=== PATIENT | male | born 1965 | race Caucasian/White ===

== ENCOUNTER → 2018-10-07 12:30 | Outpatient (BNVA) | payer MEDICARE, MEDICAID, SELFPAY | PROVIDERS: PCP Family Medicine; Referring Provider Family Medicine; Visit Provider Psychiatry & Neurology Neurology | DX: E11.42 Type 2 diabetes mellitus with diabetic polyneuropathy (principal); G56.03 Carpal tunnel syndrome, bilateral upper limbs; G54.6 Phantom limb syndrome with pain; Z89.512 Acquired absence of left leg below knee | CPT/HCPCS: 95910; 99205; 99215 ==

== ENCOUNTER → 2018-12-22 10:11 | Outpatient (BNVA) | payer MEDICARE, MEDICAID, SELFPAY | PROVIDERS: PCP Family Medicine; Visit Provider Psychiatry & Neurology Neurology | DX: G54.6 Phantom limb syndrome with pain (principal); E08.42 Diabetes mellitus due to underlying condition with diabetic polyneuropathy; G56.03 Carpal tunnel syndrome, bilateral upper limbs | CPT/HCPCS: 99214 ==

== ENCOUNTER → 2019-03-16 08:43 | Outpatient (BNVA) | payer MEDICARE, MEDICAID, SELFPAY | PROVIDERS: PCP Family Medicine; Referring Provider Family Medicine; Visit Provider Psychiatry & Neurology Neurology | DX: E08.42 Diabetes mellitus due to underlying condition with diabetic polyneuropathy; G54.6 Phantom limb syndrome with pain; G56.03 Carpal tunnel syndrome, bilateral upper limbs | CPT/HCPCS: 99214 ==

== ENCOUNTER → 2019-04-27 10:11 | Outpatient (BNVA) | payer MEDICARE, MEDICAID, SELFPAY | PROVIDERS: PCP Family Medicine; Referring Provider Family Medicine; Visit Provider Student in an Organized Health Care Education/Training Program | DX: G56.03 Carpal tunnel syndrome, bilateral upper limbs (principal); M72.0 Palmar fascial fibromatosis [Dupuytren]; E11.42 Type 2 diabetes mellitus with diabetic polyneuropathy; Z79.4 Long term (current) use of insulin; Z89.512 Acquired absence of left leg below knee | CPT/HCPCS: 99204; 99215 ==

== ENCOUNTER → 2019-05-18 09:05 | Outpatient (BNVA) | payer MEDICARE, MEDICAID, SELFPAY | PROVIDERS: PCP Family Medicine; Referring Provider Family Medicine; Visit Provider Psychiatry & Neurology Neurology | DX: G54.6 Phantom limb syndrome with pain (principal); G56.03 Carpal tunnel syndrome, bilateral upper limbs; E08.42 Diabetes mellitus due to underlying condition with diabetic polyneuropathy; Z79.4 Long term (current) use of insulin | CPT/HCPCS: 99214 ==

== ENCOUNTER 2019-06-10 06:18 | Day surgery (SDC) | payer MEDICARE, MEDICAID, SELFPAY ==
--- NOTE | 2019-06-09 17:59 | W.PREOPHP ---
Date of service: 06/10/19 Assessment and Plan Assessment and plan (1) Right carpal tunnel syndrome: Status: Acute Assessment and plan: Plan: Educated patient on surgery covering surgical technique, recovery process, benefits and risks including but not limited to risk of infection, blood clot, damage to soft tissue/blood vessels/nerves in detail. After discussion patient gives verbal understanding of risks and elects to proceed with scheduling surgery. Patient had opportunity to have questions answered to their satisfaction. They will contact office if issues arise. Patient will continue to be scheduled for right ECTR with Dr. Castillo. History of Present Illness Narrative: Mr. Robles is a 53-year-old male with past medical history of type 2 diabetes who presents to hospital for scheduled right ECTR later today. Patient has previously been seen by neurology for bilateral hand numbness and tingling. As per neurology note by Dr. Paul on 03/16/2019 patient had bilateral hand numbness/tingling secondary to mild bilateral carpal tunnel +/- peripheral neuropathy. Patient tried to treat discomfort with gabapentin but did not experience symptomatic improvement. As per patient's record he did have some symptomatic improvement with nighttime bracing. Patient was then seen orthopedic clinic on 04/27/2019 at which time after discussion patient wished to have carpal tunnel release based on his significant symptoms. Pertinent Surgical Information Denies past medical history of: Hypertension, stroke, cardiac issues, angina, asthma, COPD, sleep apnea, renal issues, liver issues, hepatitis, hyperlipidemia, bleeding disorders, seizures, migraines, autoimmune disorders, thyroid issues Denies prior complications from surgery. Reports he had an issue with gas anesthesia when he was a child. No anesthesia issues after that time. Review of Systems Cardiovascular Cardiovascular: Denies chest pain and Denies dyspnea Respiratory Respiratory: Denies dyspnea [facility] Social History Smoking/Tobacco Use Status: Never Alcohol Intake: never Drug use: Occasionally Substance use type: former substance user Details: No marijuana use for a month Household members: children Number of Children: 4 current occupation: Disabled Current gender identity: male Do you feel safe at home: Yes Do you feel safe in your relationship?: Yes Additional Social history: 8 children total Meds Home Medications and Allergies Home Medications Medication Instructions Recorded Confirmed Type tadalafil [Cialis] 5 mg PO daily prn #10 tab 03/25/17 06/05/19 Rx pen needle, diabetic 32 gauge x #4 box 02/28/18 05/18/19 Rx 5/32 Prosthetic accessories #1 ea 08/29/18 05/18/19 Rx gabapentin 600 mg tablet 1,200 mg PO BID #360 tab MDD 2400 12/26/18 06/10/19 Rx mg insulin detemir U-100 100 unit/mL 115 unit SUB-Q BID #15 ml MDD 115 12/26/18 06/10/19 Rx (3 mL) subcutaneous pen units lisinopril 10 mg tablet 10 mg PO DAILY #90 tab-cap 12/26/18 06/10/19 Rx metformin 1,000 mg tablet 1,000 mg PO BID@0800,1700 #180 tab 12/26/18 06/10/19 Rx omeprazole 20 mg capsule,delayed 20 mg PO DAILY #90 tab-cap 12/26/18 06/10/19 Rx release trazodone 150 mg tablet 150 mg PO HS #90 tab 12/26/18 06/10/19 Rx insulin aspart U-100 100 unit/mL 1 unit SUB-Q AC #4 ml MDD 54 units 05/07/19 06/10/19 Rx (3 mL) subcutaneous pen acetaminophen 500 mg tablet 500 mg PO QID PRN 05/18/19 06/05/19 History nortriptyline 25 mg capsule 25 mg PO QHS #90 cap 05/18/19 06/10/19 Rx Allergies Allergy/AdvReac Type Severity Reaction Status Date / Time No Known Drug Allergies Allergy Verified 06/10/19 06:26 Exam Const General: cooperative and no acute distress Resp Effort & Inspection: normal respiratory effort and abnormal respiratory pattern Auscultation: clear to auscultation bilaterally, no rales, no rhonchi and no wheezes Cardio Heart Sounds: S1 normal, S2 normal and no murmurs Extrem Other: Right hand examination: Skin is intact without signs of erythema, lacerations or rash. Radial pulse is 2+ equal to contralateral side.
[2019-06-10 06:20] VITALS: BP 153/94; PULSE 66; RESP 18; TEMP 36.7; O2SAT 97
[2019-06-10] MEDS: Lactated Ringers 1,000 ML 80 ML IV (07:00)
--- NOTE | 2019-06-10 07:15 | PDOC.DSDIS_ITS ---
Discharge Plan Disposition Patient Disposition: HOME Condition: Good Discharge Details Reason For Visit: Right carpal tunnel syndrome Attending Provider: Stas Castillo Primary Care Provider: Zeeshan Singh Home Meds and New Rx's Prescriptions: New hydrocodone-acetaminophen 5-325 mg tablet 1 tab PO Q6H PRN (Reason: severe postopertive pain) Qty: 4 RF: 0 acetaminophen 500 mg tablet 500 mg PO Q6H PRN (Reason: pain) Qty: 60 RF: 2 ibuprofen 600 mg tablet 600 mg PO TID PRN (Reason: pain) Qty: 60 RF: 2 Continued (DME) Prosthetic accessories Qty: 1 RF: 0 (DME) pen needle, diabetic [BD Ultra-Fine Paige Pen Needle] 32 gauge x 5/32 needle 1 ea Miscellaneous 5X/DAY Qty: 4 RF: 3 nortriptyline 25 mg capsule 25 mg PO QHS Qty: 90 RF: 3 tadalafil [Cialis] 5 MG tablet 5 mg PO daily prn Qty: 10 RF: 0 gabapentin 600 mg tablet 1,200 mg PO BID MDD 2400 mg Qty: 360 RF: 3 Levemir FlexTouch U-100 Insuln 100 unit/mL (3 mL) insulin pen 115 unit Sub-Q BID MDD 115 units Qty: 15 RF: 6 lisinopril 10 mg tablet 10 mg PO DAILY Qty: 90 RF: 3 metformin [Glucophage] 1,000 mg tablet 1,000 mg PO BID@0800,1700 Qty: 180 RF: 3 omeprazole 20 mg capsule,delayed release(DR/EC) 20 mg PO DAILY Qty: 90 RF: 3 trazodone 150 mg tablet 150 mg PO HS Qty: 90 RF: 3 insulin aspart U-100 [Novolog Flexpen U-100 Insulin] 100 unit/mL (3 mL) insulin pen 1 unit Sub-Q AC MDD 54 units Qty: 4 RF: 2 Discontinued acetaminophen [Tylenol Extra Strength] 500 mg tablet 500 mg PO QID PRNRF: 0 Discharge Instructions Stand Alone Forms: Jonathan Thomas Tunnel Release Referrals: Stas Castillo MD [ [facility] STAFF PHYSICIAN] - Activity:: Elevate Remove Dressings/Wound Care:: 48 hours Shower/Bathe:: 48 hours Diet:: As Tolerated DS: Diagnosis Discharge Diagnosis (1) Right carpal tunnel syndrome: Status: Acute
[2019-06-10] MEDS: ceFAZolin 2 GM/50 ML BAG IVPB (07:26)
[2019-06-10] MEDS: Sodium Bicarbonate 50 MEQ/50 ML VIAL (07:30)
[2019-06-10 08:30] VITALS: BP 120/71; PULSE 72; RESP 18; TEMP 36.6; O2SAT 94
--- NOTE | 2019-06-10 19:39 | W.PM.OP ---
Date of service: 06/10/19 Time of Service: 08:01 Operative Note Operative Note DATE OF PROCEDURE: 06/10/19 PRE-OP DIAGNOSIS: Right Carpal Tunnel Syndrome POST-OP DIAGNOSIS: same PROCEDURE: Right Endoscopic Carpal Tunnel Release SURGEON: Stas Castillo ANESTHESIA: GETFracisco ESTIMATED BLOOD LOSS: 0 PATHOLOGY: none sent TOURNIQUET TIME: 4 COMPLICATIONS: None Patient was transported to: same day Patient's condition: stable Indications: I have seen Jimmie in clinic for symptoms of carpal tunnel syndrome. The numbness, tingling, and pain limited function. Clinical exam findings with nerve conduction tests confirmed the diagnosis of carpal tunnel syndrome. Nonoperative measures such as bracing, time, activity modifications had been tried but disability and pain persisted. I discussed carpal tunnel release with the patient. I reviewed the risks of the procedure to include, but not limited to, bleeding, infection, pain, stiffness, incomplete release, damage to nerves or vessels, persistent numbness, recurrence. Despite these risks, the patient elected to proceed. Findings: There was tightened carpal tunnel. This was dilated and released successfully with the endoscopic with increased space within the tunnel. The antebrachial fascia was released proximally freeing the median nerve at the wrist. Procedure Description: Jimmie was greeted in the preoperative holding area where the correct side was identified and marked. The consent was reviewed with the patient and signed. The history and physical was updated. All questions were answered. He was taken back to the operating room. The patient was placed into the supine position on the operating room table with the right arm on an arm board. A nonsterile tourniquet was placed high onto the arm. All bony prominences were well padded. Prophylactic antibiotics in the form of Cefazolin were administered. The right arm was then prepped with Chloraprep and draped in a standard fashion with stockinette and extremity drape. A timeout to confirm correct identity, side and site, procedure, allergies, anesthesia, and medical concerns was performed. The surgical site was marked in the volar wrist creases in line with the radial border of the fourth ray. This area was anesthetized with approximately 6cc of 1% Lidocaine. The limb was then exsanguinated with an Esmarch. The skin was incised with a 15 blade, approximately 1cm. The skin only was cut and the deeper tissue was dissected bluntly with a tenotomy scissor, avoiding passing nerve and venous structures. The fascia was penetrated and opened bluntly. A two-prong skin hook was placed under this proximal fascial edge. A series of hamate finders were used to identify and dilate the carpal tunnel. Synovial elevator was used to free synovial attachments to the underside of the transverse carpal ligament. My thumb was kept in the palm to deepa the distal extent of the carpal tunnel and correctly position the hand. The Microaire endoscope was inserted without difficulty and without resistance. Excellent visualization showed horizontally running fibers of the transverse carpal ligament (TCL). The distal extent of the TCL was visualized and the end of the scope palpated with the thumb. The blade was elevated and withdrawn from distal to proximal. The TCL was split into two flaps. The endoscope was reinserted to confirm complete release and any remnant ligament was incised. The scope was withdrawn and the proximal aspect of the carpal tunnel was grossly inspected and appeared release with the median nerve visible. The antebrachial fascia at the level of the wrist was then freed from the overlying skin and then the underlying median nerve with blunt dissection. This was transected longitudinally for about 3cm proximal to the wrist incision. The wound was then irrigated with easy flow of irrigant distally and proximally. The incision was closed with a single 4-0 Nylon suture. The wound was dressed with Xeroform, Gauze, Kerlix and Jasper. The tourniquet was deflated with the initial dressing and held with some pressure. Blood flow returned easily to all digits with capillary refill less than 2 seconds. The patient tolerated the procedure well and was returned to the Same Day Surgery area in a stable condition suffering no known complication.
== END 2019-06-10 09:00 | disposition home or self-care (01) ==
PROVIDERS: PCP Family Medicine; Visit Provider Student in an Organized Health Care Education/Training Program
PROC: 01N54ZZ Release Median Nerve, Percutaneous Endoscopic Approach (ICD-10-PCS; CPT 29848; principal; 2019-06-10 07:30)
DX: G56.01 Carpal tunnel syndrome, right upper limb (principal)
CPT/HCPCS: 29848; NC; J0690; J1885; L3650

== ENCOUNTER → 2019-06-19 09:05 | Outpatient (BNVA) | payer MEDICARE, MEDICAID, SELFPAY | PROVIDERS: PCP Family Medicine; Referring Provider Family Medicine; Visit Provider Student in an Organized Health Care Education/Training Program | DX: Z47.89 Encounter for other orthopedic aftercare (principal); G56.02 Carpal tunnel syndrome, left upper limb; G56.01 Carpal tunnel syndrome, right upper limb; M72.0 Palmar fascial fibromatosis [Dupuytren] ==

== ENCOUNTER 2019-06-23 06:13 | Day surgery (SDC) | payer MEDICARE, MEDICAID, SELFPAY ==
[2019-06-23 06:44] VITALS: BP 170/91; PULSE 75; RESP 18; TEMP 36.8; O2SAT 97
[2019-06-23] MEDS: Lactated Ringers 1,000 ML 80 ML IV (06:56)
--- NOTE | 2019-06-23 07:13 | W.PM.DSUDISC ---
Discharge Plan Disposition Patient Disposition: HOME Condition: Good Discharge Details Reason For Visit: Left Carpal Tunnel Syndrome and Left LF Dupuytren Attending Provider: Stas Castillo Primary Care Provider: Zeeshan Singh Home Meds and New Rx's Prescriptions: New hydrocodone-acetaminophen 5-325 mg tablet 1 tab PO Q6H PRN PRN (Reason: pain) Qty: 8 RF: 0 acetaminophen 500 mg tablet 500 mg PO Q6H PRN PRN (Reason: pain) Qty: 60 RF: 3 ibuprofen 600 mg tablet 600 mg PO TID PRNQty: 30 RF: 3 Continued (DME) Prosthetic accessories Qty: 1 RF: 0 (DME) pen needle, diabetic [BD Ultra-Fine Paige Pen Needle] 32 gauge x 5/32 needle 1 ea Miscellaneous 5X/DAY Qty: 4 RF: 3 nortriptyline 25 mg capsule 25 mg PO QHS Qty: 90 RF: 3 tadalafil [Cialis] 5 MG tablet 5 mg PO daily prn Qty: 10 RF: 0 gabapentin 600 mg tablet 1,200 mg PO BID MDD 2400 mg Qty: 360 RF: 3 Levemir FlexTouch U-100 Insuln 100 unit/mL (3 mL) insulin pen 115 unit Sub-Q BID MDD 115 units Qty: 15 RF: 6 lisinopril 10 mg tablet 10 mg PO DAILY Qty: 90 RF: 3 metformin [Glucophage] 1,000 mg tablet 1,000 mg PO BID@0800,1700 Qty: 180 RF: 3 omeprazole 20 mg capsule,delayed release(DR/EC) 20 mg PO DAILY Qty: 90 RF: 3 trazodone 150 mg tablet 150 mg PO HS Qty: 90 RF: 3 insulin aspart U-100 [Novolog Flexpen U-100 Insulin] 100 unit/mL (3 mL) insulin pen 1 unit Sub-Q AC MDD 54 units Qty: 4 RF: 2 Discharge Instructions Additional Instructions: Activity: You may use your fingers and wrist for light activity. You should limit any excessive motion or forceful gripping until the sutures have been removed. Dressings: You should keep the initial surgical dressing of finger and wrist in place for at least 3 days. You may remove your dressings and get the wound wet after 3 days. You should keep the dressings and the wound clean at all times. Keep the wound covered with light gauze or bandaid until the sutures are removed. Medications: - You should take Tylenol and Ibuprofen around the clock as prescribed or per configuration management architect's recommendations. - You have Hydrocodone prescribed for breakthrough pain control. Take only as needed and limit use as much as possible. This may cause constipation. Follow-up: 7-10 days for wound check and suture removal. Referrals: Stas Castillo MD [ [facility] STAFF PHYSICIAN] - Remove Dressings/Wound Care:: 72 hours Shower/Bathe:: 72 hours Diet:: As Tolerated Discharge Orders Discharge Orders: Discharge Order (Routine); Ordered 06/23/19 Ordered By: Stas Castillo DS: Diagnosis Discharge Diagnosis (1) Dupuytren's contracture of left hand: Status: Acute (2) Left carpal tunnel syndrome: Status: Acute
[2019-06-23] MEDS: ceFAZolin 2 GM/50 ML BAG IVPB (07:26)
[2019-06-23] MEDS: Sodium Bicarbonate 50 MEQ/50 ML VIAL (07:46)
[2019-06-23 08:44] VITALS: BP 154/82; PULSE 78; RESP 18; TEMP 36.4; O2SAT 96
--- NOTE | 2019-06-23 09:50 | ROE_ITS ---
Date of service: 06/23/19 Time of Service: 09:51 Operative Note Operative Note DATE OF PROCEDURE: 06/23/19 PRE-OP DIAGNOSIS: Left Carpal Tunnel Syndrome and Left Little Finger Dupuytren's Contracture POST-OP DIAGNOSIS: same PROCEDURE: Left Endoscopic Carpal Tunnel Release and Left Little Finger Partial Palmar Fasciectomy SURGEON: Stas Castillo ANESTHESIA: MAC ESTIMATED BLOOD LOSS: 0 PATHOLOGY: none sent TOURNIQUET TIME: 17 COMPLICATIONS: None Patient was transported to: same day Patient's condition: stable Indications: I have seen Jimmie in clinic for symptoms of carpal tunnel syndrome and left little finger Dupuytren's contracture. The numbness, tingling, and pain limited function. The little finger had a significant contracture of the PIP joint. Clinical exam findings with nerve conduction tests confirmed the diagnosis of carpal tunnel syndrome along with Dupuytren's. Nonoperative measures such as bracing, time, activity modifications had been tried but disability and pain persisted. I discussed carpal tunnel release coupled with partial palmar fasciectomy with the patient. I reviewed the risks of the procedure to include, but not limited to, bleeding, infection, pain, stiffness, incomplete release, damage to nerves or vessels, persistent numbness, recurrence. Despite these risks, the patient elected to proceed. Findings: There was tightened carpal tunnel. This was dilated and released successfully with the endoscopic with increased space within the tunnel. The a ntebrachial fascia was released proximally freeing the median nerve at the wrist. There is a very prominent abductor digit he minimi cord which was easily resected from the level of the PIP joint down to the level of the abductor digit minimi tendon sheath in the distal, ulnar palm. Procedure Description: Jimmie was greeted in the preoperative holding area where the correct side was identified and marked. The consent was reviewed with the patient and signed. The history and physical was updated. All questions were answered. He was taken back to the operating room. The patient was placed into the supine position on the operating room table with the left arm on an arm board. A nonsterile tourniquet was placed high onto the arm. All bony prominences were well padded. Prophylactic antibiotics in the form of cefazolin were administered. The left arm was then prepped with Chloraprep and draped in a standard fashion with stockinette and extremity drape. A timeout to confirm correct identity, side and site, procedure, allergies, anesthesia, and medical concerns was performed. The surgical site was marked in the volar wrist creases in line with the radial border of the fourth ray. This area was anesthetized with approximately 6cc of 1% Lidocaine with epinephrine. The proposed surgical site on the little finger was also injected with buffered 1% lidocaine with epinephrine. The limb was then exsanguinated with an Esmarch. The skin was incised with a 15 blade, approximately 1cm. The skin only was cut and the deeper tissue was dissected bluntly with a tenotomy scissor, avoiding passing nerve and venous structures. The fascia was penetrated and opened bluntly. A two-prong skin hook was placed under this proximal fascial edge. A series of hamate finders were used to identify and dilate the carpal tunnel. Synovial elevator was used to free synovial attachments to the underside of the transverse carpal ligament. My t humb was kept in the palm to deepa the distal extent of the carpal tunnel and correctly position the hand. The Microaire endoscope was inserted without difficulty and without resistance. Excellent visualization showed horizontally running fibers of the transverse carpal ligament (TCL). The distal extent of the TCL was visualized and the end of the scope palpated with the thumb. The blade was elevated and withdrawn from distal to proximal. The TCL was split into two flaps. The endoscope was reinserted to confirm complete release and any remnant ligament was incised. The scope was withdrawn and the proximal aspect of the carpal tunnel was grossly inspected and appeared release with the median nerve visible. The antebrachial fascia at the level of the wrist was then freed from the overlying skin and then the underlying median nerve with blunt dissection. This was transected longitudinally for about 3cm proximal to the wrist incision. The wound was then irrigated with easy flow of irrigant distally and proximally. The incision was closed with a single 4-0 Nylon suture. Attention was then turned to the left little finger. A Gene type incision was made over the ulnar aspect of the left little finger. This was taken down to the skin only. Blunt dissection was used to dissect down to the level of the cord. The cord is very superficial and is identifiable. There is no crossing neurovascular structures. The cord was dissected distally. Sharp dissection was used to remove any attachments of the cord to surrounding structures. It was followed although to the level the PIP joint. It was then transected at level the PIP joint and then elevated out of the wound and followed proximally to its base coming off of the abductor digiti minimi tendon over the ulnar aspect of the palm. Any adhesions to this cord were resected. The cord was then transected and removed from the finger. The finger now had full range of motion to the PIP joint. I was able to obtain 5 degrees of hyperextension of the PIP joint and 20 degrees of extension at the MCP joint. The skin was then closed with a 4-0 nylon. The wounds were dressed with Xeroform, Gauze, Kerlix and Jasper. The tourniquet was deflated with the initial dressing and held with some pressure. Blood flow returned easily to all digits with capillary refill less than 2 seconds. The patient tolerated the procedure well and was returned to the Same Day Surgery area in a stable condition suffering no known complication.
== END 2019-06-23 09:25 | disposition home or self-care (01) ==
PROVIDERS: PCP Family Medicine; Visit Provider Student in an Organized Health Care Education/Training Program
PROC: 01N54ZZ Release Median Nerve, Percutaneous Endoscopic Approach (ICD-10-PCS; CPT 29848; principal; 2019-06-23 07:30)
PROC: (CPT 26045; 2019-06-23 07:30)
DX: M72.0 Palmar fascial fibromatosis [Dupuytren] (principal); G56.02 Carpal tunnel syndrome, left upper limb
CPT/HCPCS: 26123; 29848; J0690; J2001; J2250; J2405; L3650; L3908

== ENCOUNTER → 2019-07-02 08:51 | Outpatient (BNVA) | payer MEDICARE, MEDICAID, SELFPAY | PROVIDERS: PCP Family Medicine; Referring Provider Family Medicine; Visit Provider Student in an Organized Health Care Education/Training Program | DX: Z47.89 Encounter for other orthopedic aftercare (principal); G56.02 Carpal tunnel syndrome, left upper limb; M72.0 Palmar fascial fibromatosis [Dupuytren]; E11.42 Type 2 diabetes mellitus with diabetic polyneuropathy; Z79.4 Long term (current) use of insulin ==

== ENCOUNTER → 2019-07-13 09:39 | Outpatient (BNVA) | payer MEDICARE, MEDICAID, SELFPAY | PROVIDERS: PCP Family Medicine; Referring Provider Family Medicine; Visit Provider Psychiatry & Neurology Neurology | DX: G54.6 Phantom limb syndrome with pain; E08.42 Diabetes mellitus due to underlying condition with diabetic polyneuropathy; G56.03 Carpal tunnel syndrome, bilateral upper limbs | CPT/HCPCS: 99214 ==

== ENCOUNTER 2019-07-29 16:14 | Outpatient (CLI) | payer MEDICARE, MEDICAID, SELFPAY ==
[2019-07-29 18:51] LABS: Calculated LDL 91 mg/dL (<100); Cholesterol 187 mg/dL (<200); HDL Cholesterol 30 mg/dL (40-60); TSH (W/Ref FT4) 1.09 uIU/mL (0.36-3.74); Triglyceride 330 mg/dL (<150)
[2019-07-29 19:05] LABS: Anion Gap 13.6 mmol/L (3-11); BUN 19 mg/dL (7-18); CO2 21.4 mmol/L (21.0-32.0); CREATININE 1.15 mg/dL (0.70-1.30); Calcium 9.2 mg/dL (8.5-10.1); Chloride 101 mmol/L (98-107); Glucose 99 mg/dL (74-106); Potassium 4.6 mmol/L (3.5-5.1); Sodium 136 mmol/L (136-145); Vitamin B12 332 pg/mL (193-986)
[2019-07-31 13:09] LABS: Albumin 55.4 % (55.8-66.1); Total Protein 7.9 g/dL (6.3-8.2)
== END 2019-07-29 16:34 ==
PROVIDERS: Psychiatry & Neurology Neurology; PCP Family Medicine; Visit Provider Family Medicine
DX: G62.89 Other specified polyneuropathies (principal); E08.42 Diabetes mellitus due to underlying condition with diabetic polyneuropathy; E78.5 Hyperlipidemia, unspecified
CPT/HCPCS: 36415; 80048; 80061; 82607; 84165; 84443

== ENCOUNTER → 2019-09-14 07:50 | Outpatient (BNVA) | payer MEDICARE, MEDICAID, SELFPAY | PROVIDERS: PCP Family Medicine; Referring Provider Family Medicine; Visit Provider Psychiatry & Neurology Neurology | DX: G54.6 Phantom limb syndrome with pain (principal); E08.42 Diabetes mellitus due to underlying condition with diabetic polyneuropathy; G56.01 Carpal tunnel syndrome, right upper limb; G56.02 Carpal tunnel syndrome, left upper limb | CPT/HCPCS: 99213; 99441 ==

== ENCOUNTER → 2019-11-16 09:47 | Outpatient (BNVA) | payer MEDICARE, MEDICAID, SELFPAY | PROVIDERS: PCP Family Medicine; Referring Provider Family Medicine; Visit Provider Psychiatry & Neurology Neurology | DX: G54.6 Phantom limb syndrome with pain (principal); E08.42 Diabetes mellitus due to underlying condition with diabetic polyneuropathy; G56.01 Carpal tunnel syndrome, right upper limb; G56.02 Carpal tunnel syndrome, left upper limb; Z79.4 Long term (current) use of insulin | CPT/HCPCS: 99213 ==

== ENCOUNTER → 2020-02-04 09:43 | Outpatient (BNVA) | payer MEDICARE, MEDICAID, SELFPAY | PROVIDERS: PCP Family Medicine; Referring Provider Family Medicine; Visit Provider Physical Therapy Assistant | DX: Z12.11 Encounter for screening for malignant neoplasm of colon (principal); I10 Essential (primary) hypertension; E11.9 Type 2 diabetes mellitus without complications; Z79.4 Long term (current) use of insulin ==

== ENCOUNTER 2020-02-15 00:37 | Outpatient (CLI) | payer MEDICARE, MEDICAID, SELFPAY ==
--- NOTE | 2020-02-15 14:18 | ST.MBS ---
Modified Barium Swallow Date of service: 02/15/20 Study Findings: HPI: PMHx: S: O: Videofluoroscopic Swallow Study (VFSS) was conducted in the lateral and [id number] projections by Speech-Language Pathologist, in collaboration with Radiologist, to evaluate oropharyngeal swallow function. Anatomic view under fluoroscopy: PO barium contrast trials: Varibar thin liquid, Varibar nectar (mildly-thick) liquid, Varibar thin honey (moderately-thick) liquid, Varibar pudding, & solid coated in Varibar pudding. Oral phase findings: Lip closure: Tongue control: Bolus preparation: Oral residue: Pharyngeal phase findings: Initiation of swallow: Velar elevation: Laryngeal elevation: Anterior hyoid excursion: Epiglottic movement: Laryngeal vestibule closure: Pharyngeal stripping wave: Pharyngeal contraction: PES opening: BOT retraction: Pharyngeal residue: Esophageal findings: NOTE: This study was performed for interpretation only of the oropharyngeal and pharyngoesophageal domains of swallowing. It is not intended to diagnose any other radiologic abnormalities or substitute for a formal esophagram study. Esophageal clearance: 8-point Penetration-Aspiration Scale (PAS): Thin liquid: Mildly-thick liquid: Moderately-thick liquid: Pudding: Solid: Compensatory Swallow Strategies: Dysphagia Outcome and Severity Scale (TRENT): A: P: Diet recommendation: Risk management: Specialist referrals: Ancillary tests: Therapy: Goal: Follow-up exam: Loni Valdivia MA [facility] [phone]
== END 2020-02-15 00:57 ==
PROVIDERS: PCP Family Medicine; Visit Provider Family Medicine
DX: R69 Illness, unspecified (principal)

== ENCOUNTER 2020-02-25 15:37 | Outpatient (CLI) | payer MEDICARE, MEDICAID, SELFPAY | END 2020-02-25 15:57 | PROVIDERS: PCP Family Medicine; Visit Provider Surgery | DX: E11.42 Type 2 diabetes mellitus with diabetic polyneuropathy (principal); G54.6 Phantom limb syndrome with pain; Z79.4 Long term (current) use of insulin | CPT/HCPCS: 99213 ==

== ENCOUNTER 2020-03-16 11:20 | Emergency (ER) | payer MEDICARE, MEDICAID, SELFPAY ==
[2020-03-16] VITALS (37 sets, daily range): BP systolic 121–166; BP diastolic 82–104; PULSE 0–117; RESP 10–28; TEMP 37; O2SAT 92–98
--- NOTE | 2020-03-16 11:15 | RT.EKG_ITS ---
APPROVED REPORT Exam: Resting ECG Patient Location: E HR:109 bpm ECG Measurements Heart Rate 109 AXIS CA [id number] P [id number] QRSd 94 QRS -61 QT 363 T 111 QTc 490 Conclusion Probable.wandering baseline. repeat requested
--- NOTE | 2020-03-16 11:45 | DI.RAD_ITS ---
EXAM: XR PORTABLE CHEST AP CLINICAL HISTORY: Cough, L Pain TECHNIQUE: 2D digital imaging was performed. COMPARISON: No exams were available for comparison FINDINGS: MEDIASTINUM: Normal. HEART: Normal. PULMONARY VASCULATURE: Normal. LUNGS: Clear. PLEURAL SPACE: No pleural effusion or pneumothorax. BONE:Within normal limits for the patient's age. OTHER FINDINGS:Normal. IMPRESSION: No acute pulmonary findings. DATA REPOSITORY: RADIATION DOSE DELIVERED:
--- NOTE | 2020-03-16 11:45 | RT.EKG_ITS ---
APPROVED REPORT Exam: Resting ECG Patient Location: E HR:100 bpm ECG Measurements Heart Rate 100 AXIS MI 156 P 78 QRSd 98 QRS -47 QT 346 T 82 QTc 447 Conclusion Sinus tachycardia. Rate 100 LAD, consider left anterior fascicular block
[2020-03-16] MEDS: LORazepam 2 MG/ML VIAL 0.5 MG IVP (12:20)
--- NOTE | 2020-03-16 12:31 | W.ED.GENAD ---
Discharge Plan Disposition Patient Disposition: HOME Condition: Improving Discharge Details Clinical Impression: Dehydration Primary Care Provider: Zeeshan Singh ED Provider: Shane Robledo Home Meds and New Rx's Prescriptions: Continued (DME) Prosthetic accessories Qty: 1 RF: 0 gabapentin 600 mg tablet See Rx Instructions PO DIRECTED MDD 3000 mg Qty: 450 RF: 3 nortriptyline 25 mg capsule 25 mg PO QHS Qty: 90 RF: 3 polyethylene glycol 3350 17 gram/dose powder 238 g PO ONCE Qty: 238 RF: 0 bisacodyl [Dulcolax (bisacodyl)] 5 mg tablet,delayed release (DR/EC) 5 mg PO ONCE Qty: 4 RF: 0 (DME) Diabetic shoes Qty: 2 RF: 0 tamsulosin [Flomax] 0.4 mg capsule 0.4 mg PO DAILY Qty: 90 RF: 3 finasteride 5 mg tablet 5 mg PO DAILY Qty: 90 RF: 3 insulin aspart U-100 [Novolog Flexpen U-100 Insulin] 100 unit/mL (3 mL) insulin pen See Rx Instructions Sub-Q AC MDD 54 units Qty: 15 RF: 12 tadalafil [Cialis] 5 MG tablet 5 mg PO daily prn Qty: 10 RF: 0 lisinopril 10 mg tablet 10 mg PO DAILY Qty: 90 RF: 3 metformin [Glucophage] 1,000 mg tablet 1,000 mg PO BID@0800,1700 Qty: 180 RF: 3 omeprazole 20 mg capsule,delayed release(DR/EC) 20 mg PO DAILY Qty: 90 RF: 3 trazodone 150 mg tablet 150 mg PO HS Qty: 90 RF: 3 Levemir FlexTouch U-100 Insuln 100 unit/mL (3 mL) insulin pen 115 unit Sub-Q BID MDD 115 units Qty: 15 RF: 6 (DME) pen needle, diabetic [BD Ultra-Fine Paige Pen Needle] 32 gauge x 5/32 needle 1 ea Miscellaneous 5X/DAY Qty: 100 RF: 11 acetaminophen 500 mg tablet 500 mg PO Q6H PRN PRN (Reason: pain) Qty: 60 RF: 3 ibuprofen 600 mg tablet 600 mg PO TID PRNQty: 30 RF: 3 Discharge Instructions Instructions: Dehydration (ED) Additional Instructions: You were dehydrated today. Continue your routine medications. Small, frequent sips of fluid so that you maintain hydration. Please follow-up with Dr. Singh in clinic if not feeling 100% improved in 2 days time. Return to the ER for any acute concerns. Medical Decision Making 54-year-old male states he had a cramping left-sided chest discomfort at home and felt like he could not breathe. He felt like he had shaking. He felt like he has had a bit of a dry cough and became very anxious that he may have contracted a respiratory infection such as coronavirus. He presented to the ER. He arrives slightly anxious, slightly elevated pulse, normal oxygenation with clear lungs. He does appear quite anxious and is given Ativan 0.5 mg. He does appear a bit dehydrated and given 1 L normal saline. Labs are reviewed reveal white blood cell count 11, hematocrit 53, platelets 361, lactate 2.6, sodium 136, potassium 3.9, chloride 98, bicarb 23, anion gap 15, BUN 12, creatinine 1.3. D-dimer negative at 412. Lactic acid 2.6. Chest x-ray without acute findings Patient did appear slightly dehydrated on exam. He appears hemoconcentrated. Following 1 L of fluids, patient chemistries and lactic acid were rechecked. Repeat lactic is improved at 1.9. Patient feels significantly better. Most consistent with dehydration. Covid test is pending. Discussed with him home management. He is stable and improved at this time. HPI General Mode of arrival: ambulatory. Date/Time Provider Initiated Documentation: 03/16/20 11:29. Limitations to Documentation: no limitations. Information obtained by: patient. History of Present Illness 54 year old M presents to the emergency department with the chief complaint of Shaking at home and cramping transient chest discomfort, described as mild, and is localized to the chest and left. Patient reports no radiation. Patient started experiencing this minute(s) and it has been now resolved. No relieving factors improve symptom(s), No exacerbating factors reported . Patient notes other (anxious, cough, dark urine, weakness). Patient did receive the following treatments prior to arrival, none Related Data Home Medications Medication Instructions Recorded Confirmed tadalafil [Cialis] 5 mg PO daily prn #10 tab 03/25/17 03/16/20 Prosthetic accessories #1 ea 08/29/18 02/25/20 acetaminophen 500 mg PO Q6H PRN PRN #60 tab 06/23/19 03/16/20 ibuprofen 600 mg PO TID PRN #30 tab 06/23/19 03/16/20 Diabetic shoes #2 each 07/10/19 02/25/20 lisinopril 10 mg tablet 10 mg PO DAILY #90 tab-cap 12/14/19 03/16/20 metformin 1,000 mg tablet 1,000 mg PO BID@0800,1700 #180 tab 12/14/19 03/16/20 omeprazole 20 mg capsule,delayed 20 mg PO DAILY #90 tab-cap 12/14/19 03/16/20 release trazodone 150 mg tablet 150 mg PO HS #90 tab 12/14/19 03/16/20 finasteride 5 mg tablet 5 mg PO DAILY #90 tab 12/18/19 03/16/20 insulin aspart U-100 100 unit/mL See Rx Instructions SUB-Q AC #15 12/18/19 03/16/20 (3 mL) subcutaneous pen ml MDD 54 units tamsulosin 0.4 mg capsule 0.4 mg PO DAILY #90 cap 12/18/19 03/16/20 bisacodyl 5 mg tablet,delayed 5 mg PO ONCE #4 tab 02/04/20 03/16/20 release polyethylene glycol 3350 17 238 g PO ONCE #238 g 02/04/20 03/16/20 gram/dose oral powder insulin detemir U-100 100 unit/mL 115 unit SUB-Q BID #15 ml MDD 115 02/15/20 03/16/20 (3 mL) subcutaneous pen units gabapentin 600 mg tablet See Rx Instructions PO DIRECTED 02/25/20 03/16/20 #450 tab MDD 3000 mg nortriptyline 25 mg capsule 25 mg PO QHS #90 cap 02/25/20 03/16/20 pen needle, diabetic 32 gauge x #100 ea 02/29/20 Previous Rx's Medication Instructions Recorded tadalafil [Cialis] 5 mg PO daily prn #10 tab 03/25/17 Prosthetic accessories #1 ea 08/29/18 acetaminophen 500 mg PO Q6H PRN PRN #60 tab 06/23/19 ibuprofen 600 mg PO TID PRN #30 tab 06/23/19 Diabetic shoes #2 each 07/10/19 lisinopril 10 mg tablet 10 mg PO DAILY #90 tab-cap 12/14/19 metformin 1,000 mg tablet 1,000 mg PO BID@0800,1700 #180 tab 12/14/19 omeprazole 20 mg capsule,delayed 20 mg PO DAILY #90 tab-cap 12/14/19 release trazodone 150 mg tablet 150 mg PO HS #90 tab 12/14/19 finasteride 5 mg tablet 5 mg PO DAILY #90 tab 12/18/19 insulin aspart U-100 100 unit/mL See Rx Instructions SUB-Q AC #15 12/18/19 (3 mL) subcutaneous pen ml MDD 54 units tamsulosin 0.4 mg capsule 0.4 mg PO DAILY #90 cap 12/18/19 bisacodyl 5 mg tablet,delayed 5 mg PO ONCE #4 tab 02/04/20 release polyethylene glycol 3350 17 238 g PO ONCE #238 g 02/04/20 gram/dose oral powder insulin detemir U-100 100 unit/mL 115 unit SUB-Q BID #15 ml MDD 115 02/15/20 (3 mL) subcutaneous pen units gabapentin 600 mg tablet See Rx Instructions PO DIRECTED 02/25/20 #450 tab MDD 3000 mg nortriptyline 25 mg capsule 25 mg PO QHS #90 cap 02/25/20 pen needle, diabetic 32 gauge x #100 ea 02/29/20 Allergies Allergy/AdvReac Type Severity Reaction Status Date / Time No Known Drug Allergies Allergy Verified 03/16/20 11:47 General Stated Complaint: SOB BRENTON: 2 Review of Systems Narrative: no fever, no abd pain, no change to bowel, no known sick contact [facility] Medical History Arthritis (02/01/17) Back Bipolar affective disorder (02/01/17) [facility] BPH w urinary obs/LUTS Chronic toe pain, left foot (02/01/17) Diabetic polyneuropathy associated with diabetes mellitus due to underlying condition (02/18/17) RX Gabapentin Diverticulitis of intestine (02/01/17) Gastroesophageal reflux disease without esophagitis (02/01/17) History of substance abuse (02/18/17) Multiple substances 1980s, Cy, ANTOLIN Insomnia, unspecified (02/01/17) Mechanical dysphagia Phantom limb pain (02/01/17) LLE Type 2 diabetes mellitus with complication, with long-term current use of insulin (02/01/17) Surgical History Amputation LLE BKA. RLE toe amputations. 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 hip R, ~2014 Family History Other Adopted Social History Smoking/Tobacco Use Status: Former Tobacco Use Smoking risk assessment performed?: Yes Alcohol Intake: former Drug use: Occasionally Substance use type: former substance user and marijuana Details: Marijuana for phantom limb pain Caregiver/Support person: No Household members: children Housing: house Number of Children: 8 Communication Needs: None Do you need help understanding health information?: Never current occupation: Disabled Pets and animals: No Sexually active: No Do you think of yourself as: straight/heterosexual Current gender identity: male What is your relationship status?: How often do you talk on the phone with friends or family?: once per week How often do you get together with friends or relatives?: once per week How often do you attend jewish or pentecostalism services?: 4 or more times per year Panel score (0-1 are the most socially isolated patients): 1 NHANES result reviewed/action taken: No What type of physical activity do you participate in: none and walking Duration: < 15 minutes/day Frequency: 1-2 times per week Octavia/Alevism: Yarsanism Special octavia needs: No Seatbelt use: always Helmet use: Yes Helmet use: sometimes Drive intox or ride w/intox putaway driver: No Working smoke detector in home: Yes Fire extinguisher in home: Yes Carbon monox detector in home: Yes Do you feel safe at home: Yes Do you feel safe in your relationship?: Yes Additional Social history: 8 children total Exam Narrative Exam Narrative: GEN: awake, alert, oriented 3. Pleasant, well groomed, interactive. HEAD: Normocephalic, atraumatic ENT: Mucous membranes dry, oropharynx unremarkable, External ear exam unremarkable EYES: PERRL, EOMI NECK: Full ROM, no CLAY, no menigismus CHEST/RESP: Nontender, clear to auscultation bilateral, no wheeze/rhonchi/rales CARDIOVASCULAR: RRR, no murmur, rub sherita. 2+ Rad pulse bilateral ABDOMEN: Soft, minimal left upper quadrant tenderness without rebound or guarding, no mass. +Bowel sounds EXT: Full ROM, left BKA, extremities otherwise unremarkable, no edema Neuro: Grossly normal neurologic exam, conversant, interactive. Psych: Speech fluent, thoughts congruent, affect anxious Course Vital Signs Vital signs: Vital Signs Temperature 37.0 C 03/16/20 11:35 Pulse 116 H 03/16/20 11:35 Respiratory Rate 28 H 03/16/20 11:35 Blood Pressure 165/104 H 03/16/20 11:35 Pulse Oximetry 98 03/16/20 11:35 Temperature 37.0 C 03/16/20 11:35 Temperature Source Oral 03/16/20 11:35 Pulse 116 H 03/16/20 11:35 Respiratory Rate 18 03/16/20 11:47 Respiratory Effort 03/16/20 11:47 Respiratory Depth Shallow 03/16/20 11:47 Respiratory Pattern Tachypnea 03/16/20 11:47 Blood Pressure 165/104 H 03/16/20 11:35 Blood Pressure Position Sitting 03/16/20 11:35 Pulse Oximetry 98 03/16/20 11:35 Oxygen Delivery Method Room Air 03/16/20 11:35 Oxygen Flow Rate 0 03/16/20 11:35 Lab/Test Results Lab/Test Results: 03/16/20 11:58 Blood Blood Culture - Pending 03/16/20 11:58 Blood Blood Culture - Pending
[2020-03-16 12:48] LABS: Abs Immature Grans 0.07 10^3/uL (0.0-0.06); Absolute Basophil Count 0.09 10^3/uL (0.0-0.2); Absolute Lymphocyte Count 2.49 10^3/uL (1.2-3.4); Basophils % 0.8; Eosinophils % 2.3; Immature Grans % 0.6; Lymphocytes % 22.5; MCHC 33.6 % (32.0-36.0); MCV 83.1 fL (80-95); MPV 9.4 fL (8.0-11.0); Monocytes % 6.9; Neutrophils % 66.9; Nucleated RBC 0 %; Platelet Count 361 10^3/uL (130-400); RBC 6.44 10^6/uL (4.36-5.78); RDW 12.8 % (11.8-14.1); RDW-SD 38.2 fL; WBC 11.08 10^3/uL (4.4-10.8)
[2020-03-16 12:51] LABS: Lactate 2.6 mmol/L (0.6-1.4)
[2020-03-16 12:55] LABS: Absolute Eosinophil Count 0.25 10^3/uL (0.0-0.7); Absolute Monocyte Count 0.76 10^3/uL (0.1-0.8); Absolute Neutrophil Count 7.41 10^3/uL (1.2-6.7)
[2020-03-16 13:04] LABS: ALT 53 U/L (16-63); AST 50 U/L (15-37); Albumin 4.3 g/dL (3.4-5.0); Alkaline Phosphatase 82 U/L (46-116); BUN 12 mg/dL (7-18); Bilirubin, Total 0.8 mg/dL (0.2-1.0); CREATININE 1.32 mg/dL (0.70-1.30); Calcium 9.9 mg/dL (8.5-10.1); Chloride 98 mmol/L (98-107); Estimated GFR 56.31 (mL/min/1.73m2); Glucose 167 mg/dL (74-106); Magnesium 1.9 mg/dL (1.8-2.4); Potassium 3.9 mmol/L (3.5-5.1); Sodium 136 mmol/L (136-145); Total Protein 9.6 g/dL (6.4-8.2)
[2020-03-16 13:07] LABS: HCT 53.5 % (40.0-50.0)
[2020-03-16] MEDS: Normal Saline 1,000 ML 1000 ML IV (13:07)
[2020-03-16 13:11] LABS: Troponin I < 0.05 ng/mL (<0.06)
[2020-03-16 13:16] LABS: D-Dimer 412 ng/mlFEU (<500)
[2020-03-16 13:22] LABS: Bilirubin Small (Negative); Blood Trace-intact (Negative); Clarity Clear (Clear); Glucose Negative (Negative); Ketones 15 mg/dL (Negative); Leukocyte Esterase Negative (Negative); Nitrite Negative (Negative); Specific Gravity >= 1.030 (1.005-1.025)
[2020-03-16 13:33] LABS: Bacteria Negative HPF (Negative); C & S Indicated? No; Casts Negative LPF (Negative); Crystals Negative HPF (Negative); Epithelial Cells Negative HPF (Negative); Mucus Negative (Negative); RBC 0-2 HPF (0-2); WBC 0-2 HPF (0-5)
[2020-03-16] MEDS: Normal Saline 250 ML IV (14:16)
[2020-03-16 14:19] LABS: Lactate 1.9 mmol/L (0.6-1.4)
[2020-03-16 14:24] LABS: Anion Gap 8.9 mmol/L (3-11); BUN 12 mg/dL (7-18); CO2 23.1 mmol/L (21.0-32.0); CREATININE 1.17 mg/dL (0.70-1.30); Calcium 8.8 mg/dL (8.5-10.1); Chloride 105 mmol/L (98-107); Glucose 107 mg/dL (74-106); Potassium 4.6 mmol/L (3.5-5.1); Sodium 137 mmol/L (136-145)
[2020-03-20 08:42] LABS: SARS-CoV-2 RNA Undetected (Undetected); SARS-CoV-2 Specimen Source Nasal
--- NOTE | 2020-03-20 09:09 | NUR.NOTE ---
Nursing Note: Negative COVID result given over the phone after identity confirmed at 0909.
== END 2020-03-16 16:05 | disposition home or self-care (01) ==
PROVIDERS: Emergency Provider Emergency Medicine; PCP Family Medicine
DX: E86.0 Dehydration (principal); F41.9 Anxiety disorder, unspecified; E11.9 Type 2 diabetes mellitus without complications; Z79.4 Long term (current) use of insulin; Z03.818 Encounter for observation for suspected exposure to other biological agents ruled out
CPT/HCPCS: 36415; 80048; 80053; 87040; 93005; 96361; 96374; 99285; U0003; 71045; 81003; 81015; 83605; 83735; 84484; 85025; 85379; 93010; 99284; J2060

== ENCOUNTER → 2020-05-26 07:31 | Outpatient (BNVA) | payer MEDICARE, MEDICAID, SELFPAY | PROVIDERS: PCP Family Medicine; Referring Provider Family Medicine; Visit Provider Psychiatry & Neurology Neurology | DX: G62.9 Polyneuropathy, unspecified (principal); G54.6 Phantom limb syndrome with pain; E08.42 Diabetes mellitus due to underlying condition with diabetic polyneuropathy | CPT/HCPCS: 99214 ==

== ENCOUNTER 2020-07-09 15:20 | Observation (INO) | payer OTHER, MEDICAID, SELFPAY ==
[2020-07-09] VITALS (47 sets, daily range): BP systolic 108–173; BP diastolic 76–121; PULSE 83–117; RESP 10–27; TEMP 36.3–36.5; O2SAT 93–99
--- NOTE | 2020-07-09 15:15 | RT.EKG_ITS ---
APPROVED REPORT Exam: Resting ECG Patient Location: E HR:109 bpm ECG Measurements Heart Rate 109 AXIS AK 148 P 72 QRSd 94 QRS -69 QT 331 T 80 QTc 446 Conclusion Sinus tachycardia Left anterior fascicular block.
--- NOTE | 2020-07-09 15:30 | DI.RAD_ITS ---
EXAM: XR PORTABLE CHEST AP CLINICAL HISTORY: sob TECHNIQUE: 2D digital imaging was performed. COMPARISON: CR XR PORTABLE CHEST AP from 03/16/2020 FINDINGS: MEDIASTINUM: Normal. HEART: Normal. PULMONARY VASCULATURE: Normal. LUNGS: Clear. PLEURAL SPACE: No pleural effusion or pneumothorax. BONE:Within normal limits for the patient's age. OTHER FINDINGS:Normal. IMPRESSION: No acute pulmonary findings. DATA REPOSITORY: RADIATION DOSE DELIVERED:
--- NOTE | 2020-07-09 15:31 | W.ED.GENAD ---
Discharge Plan Disposition Patient Disposition: [facility] INPATIENT Condition: Stable Discharge Details Admit Date/Time: 07/09/20 19:22 Admit Provider: Patrick García Attending Provider: Patrick García Primary Care Provider: Zeeshan Singh ED Provider: Holli Del Angel Discharge Data Discharge Date/Time-TO BE ENTERED AT DEPARTURE: 07/09/20 20:10 Medical Decision Making <RUDDY Sauceda - Last Filed: 07/10/20 08:01> This is a 54-year-old gentleman, insulin-dependent diabetic, presented to the ER today with multiple complaints. He is concerned that he has contracted the flu, reports body aches, pain that is in his left chest, abdominal pain, nausea vomiting, diarrhea, constipation, loss of taste and smell. Clinically he appears anxious, slightly hypertensive, tachycardia at 106. Respirations are 18, he is afebrile, O2 sats are 99% on room air. No respiratory distress. Given his multiple complaints, differential is wide which includes but not excluded to ACS, PE, pneumonia, Covid, flu, gastroenteritis, viral syndrome, etc. Plan is to obtain IV access, give IV fluids, 4 baby aspirin, 4 mg IV Zofran and obtain a cardiac work-up including D-dimer, a rapid Covid, flu, RSV. We will also obtain lactate and blood cultures. Patient is comfortable with this plan. Medical Records Medical records reviewed: Yes I reviewed the patient's medical records. ECG Data Attestation: I personally reviewed and interpreted this ECG (s) as follows: Interpretation: Please see official report by Dr. Robledo. Sinus tachycardia, ventricular rate of 109, left anterior fascicular block. No STEMI. <RUDDY Justin Last Filed: 07/09/20 20:10> Patient there is criteria treatment obvious source, I did give empiric dose of ceftriaxone 2 g Patient will maintain hemodynamic stability 3.4 White count 21,000 with shift I do not see reason for additional antibiotics at this time He was hydrated with 1 L of normal saline 1 L of lactated Ringer's He tolerated be placed without incident Comorbidities and current presentation he will be admitted overnight for observation Patient agrees with plan Care was transferred from Terry Emerson PA-C at 1600 HPI <RUDDY Sauceda Last Filed: 07/10/20 08:01> General Mode of arrival: ambulatory. Date/Time Provider Initiated Documentation: 07/09/20 15:21. Limitations to Documentation: no limitations. Information obtained by: patient. HPI Narrative: This is a 54-year-old gentleman with past medical history that includes diabetes, insulin-dependent, arthritis, bipolar affective disorder, BPH with LUTS, diabetic neuropathy, diverticulitis, GERD, history of substance abuse, left below the knee amputation. He presents with multiple complaints. He states that he went to bed last night asymptomatic, woke this morning with a flu. He states that he has received his flu vaccination but not his Covid vaccination. He reports diffuse body aches, some of these body aches are on the left side of his chest. The pain in his chest does not radiate and is not reproducible. He reports nausea, vomiting, dry heaving all morning, abdominal pain associated with his vomiting. He reports generalized fatigue, loss of taste and smell. He initially reports shortness of breath without cough, but then tells me that he does not feel extremely short of breath. He denies fever, visual changes, headache, neck pain, skin rash, dysuria. He denies recent travel but reports that his grandchildren are often in crowds and he has seen them. He also reports that he does not drink enough water, his family has been trying to get him to drink more for the past month, he is concerned about dehydration. Related Data Home Medications Medication Instructions Recorded Confirmed tadalafil [Cialis] 5 mg PO daily prn #10 tab 03/25/17 07/09/20 Prosthetic accessories #1 ea 08/29/18 07/09/20 acetaminophen 500 mg PO Q6H PRN PRN #60 tab 06/23/19 07/09/20 ibuprofen 600 mg PO TID PRN #30 tab 06/23/19 07/09/20 Diabetic shoes #2 each 07/10/19 07/09/20 lisinopril 10 mg tablet 10 mg PO DAILY #90 tab-cap 12/14/19 07/09/20 metformin 1,000 mg tablet 1,000 mg PO BID@0800,1700 #180 tab 12/14/19 07/09/20 omeprazole 20 mg capsule,delayed 20 mg PO DAILY #90 tab-cap 08/10/20 03/06/21 release finasteride 5 mg tablet 5 mg PO DAILY #90 tab 12/18/19 07/09/20 tamsulosin 0.4 mg capsule 0.4 mg PO DAILY #90 cap 12/18/19 07/09/20 polyethylene glycol 3350 17 238 g PO ONCE #238 g 02/04/20 07/09/20 gram/dose oral powder insulin detemir U-100 100 unit/mL 115 unit SUB-Q BID #15 ml MDD 115 02/15/20 07/09/20 (3 mL) subcutaneous pen units gabapentin 600 mg tablet See Rx Instructions PO DIRECTED 02/25/20 07/09/20 #450 tab MDD 3000 mg nortriptyline 50 mg capsule 50 mg PO QHS #90 cap 05/26/20 07/09/20 trazodone 100 mg tablet 100 mg PO QHS #90 tab 05/26/20 07/09/20 blood sugar diagnostic #300 ea 06/17/20 07/09/20 blood-glucose meter #1 ea 06/17/20 07/09/20 lancets 33 gauge #300 ea 06/17/20 07/09/20 liraglutide 0.6 mg/0.1 mL (18 mg/3 See Rx Instructions SUBCUT 06/17/20 07/09/20 mL) subcutaneous pen injector .COMPLEX #6 ml insulin aspart U-100 100 unit/mL See Rx Instructions SUB-Q AC #15 06/20/20 07/09/20 (3 mL) subcutaneous pen ml MDD 54 units pen needle, diabetic 32 gauge x #100 ea 06/24/20 07/09/2032 Previous Rx's Medication Instructions Recorded tadalafil [Cialis] 5 mg PO daily prn #10 tab 03/25/17 Prosthetic accessories #1 ea 08/29/18 acetaminophen 500 mg PO Q6H PRN PRN #60 tab 06/23/19 ibuprofen 600 mg PO TID PRN #30 tab 06/23/19 Diabetic shoes #2 each 07/10/19 lisinopril 10 mg tablet 10 mg PO DAILY #90 tab-cap 12/14/19 metformin 1,000 mg tablet 1,000 mg PO BID@0800,1700 #180 tab 12/14/19 omeprazole 20 mg capsule,delayed 20 mg PO DAILY #90 tab-cap 08/10/20 release finasteride 5 mg tablet 5 mg PO DAILY #90 tab 12/18/19 tamsulosin 0.4 mg capsule 0.4 mg PO DAILY #90 cap 12/18/19 polyethylene glycol 3350 17 238 g PO ONCE #238 g 02/04/20 gram/dose oral powder insulin detemir U-100 100 unit/mL 115 unit SUB-Q BID #15 ml MDD 115 02/15/20 (3 mL) subcutaneous pen units gabapentin 600 mg tablet See Rx Instructions PO DIRECTED 02/25/20 #450 tab MDD 3000 mg nortriptyline 50 mg capsule 50 mg PO QHS #90 cap 05/26/20 trazodone 100 mg tablet 100 mg PO QHS #90 tab 05/26/20 blood sugar diagnostic #300 ea 06/17/20 blood-glucose meter #1 ea 06/17/20 lancets 33 gauge #300 ea 06/17/20 liraglutide 0.6 mg/0.1 mL (18 mg/3 See Rx Instructions SUBCUT 06/17/20 mL) subcutaneous pen injector .COMPLEX #6 ml insulin aspart U-100 100 unit/mL See Rx Instructions SUB-Q AC #15 06/20/20 (3 mL) subcutaneous pen ml MDD 54 units pen needle, diabetic 32 gauge x #100 ea 06/24/20 Allergies Allergy/AdvReac Type Severity Reaction Status Date / Time No Known Drug Allergies Allergy Verified 07/09/20 15:33 General BRENTON: 2 Review of Systems <RUDDY Sauceda - Last Filed: 07/10/20 08:01> Constitutional Constitutional: Reports fatigue, Denies fever(s), Denies headache(s) and Denies weakness Eyes Eyes: Denies change in vision ENT Ears, Nose, Mouth, and Throat: Denies dizziness and Denies headache(s) Cardiovascular Cardiovascular: Reports chest pain and Reports dyspnea Respiratory Respiratory: Denies cough and Reports dyspnea Gastrointestinal Gastrointestinal: Reports abdominal pain, Reports constipation, Reports diarrhea, Reports nausea and Reports vomiting Genitourinary Genitourinary: Denies dysuria Musculoskeletal Musculoskeletal: Reports myalgias and Reports tingling (Baseline neuropathy) Integumentary/Breasts Skin/Breast: Denies rash Neurologic Neurologic: Denies dizziness, Denies headache(s) and Denies weakness Psychiatric Psychiatric: Reports anxiety Endocrine Endocrine: Reports fatigue Hematologic/Lymphatic Hematologic/Lymphatic: Denies easy bleeding and Denies easy bruising PFS <RUDDY Sauceda - Last Filed: 07/10/20 08:01> Medical History Arthritis (02/01/17) Back Bipolar affective disorder (02/01/17) [facility] BPH w urinary obs/LUTS Chronic toe pain, left foot (02/01/17) Diabetic polyneuropathy associated with diabetes mellitus due to underlying condition (02/18/17) RX Gabapentin Diverticulitis of intestine (02/01/17) Gastroesophageal reflux disease without esophagitis (02/01/17) History of substance abuse (02/18/17) Multiple substances [facility], [place], [place], [place] Insomnia, unspecified (02/01/17) Mechanical dysphagia Phantom limb pain (02/01/17) LLE Type 2 diabetes mellitus with complication, with long-term current use of insulin (02/01/17) Surgical History Amputation LLE BKA. RLE toe amputations. 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 hip R, ~2014 Family History Other Adopted Social History Smoking/Tobacco Use Status: Former Tobacco Use Smoking risk assessment performed?: Yes Alcohol Intake: former Drug use: Occasionally Substance use type: former substance user and marijuana Details: Marijuana for phantom limb pain Caregiver/Support person: No Household members: children Housing: house Number of Children: 8 Communication Needs: None Do you need help understanding health information?: Never current occupation: Disabled Pets and animals: No Sexually active: No Do you think of yourself as: straight/heterosexual Current gender identity: male What is your relationship status?: How often do you talk on the phone with friends or family?: once per week How often do you get together with friends or relatives?: once per week How often do you attend anglican or hoahaoism services?: 4 or more times per year Panel score (0-1 are the most socially isolated patients): 1 NHANES result reviewed/action taken: No What type of physical activity do you participate in: none and walking Duration: < 15 minutes/day Frequency: 1-2 times per week Octavia/Anglican: Jehovah'S Witness Special octavia needs: No Seatbelt use: always Helmet use: Yes Helmet use: sometimes Drive intox or ride w/intox chain saw driver: No Working smoke detector in home: Yes Fire extinguisher in home: Yes Carbon monox detector in home: Yes Do you feel safe at home: Yes Do you feel safe in your relationship?: Yes Additional Social history: 8 children total Exam <RUDDY Sauceda - Last Filed: 07/10/20 08:01> Const General: cooperative, comfortable and anxious Orientation: alert, awake and oriented x3 HENMT Head: normal to inspection, normocephalic and atraumatic Face and sinus: normal facial exam Mouth: moist mucous membranes abnormal (Slightly dry) Throat: posterior oropharynx normal Eyes General: appearance normal, both eyes and all related structures Conjunctivae: conjunctivae normal Sclera: sclerae normal Neck Neck: normal visual inspection, full ROM, no meningeal signs, trachea midline, supple and nontender Chest Chest: normal inspection of the chest and normal palpation of entire chest wall Resp Effort & Inspection: normal respiratory effort and able to speak in complete sentences Auscultation: diminished lung sounds bilaterally (Bases) Cardio Rate: tachycardic (106) Rhythm: regular rhythm GI Palpation: soft, not firm, no guarding, no pulsatile masses and nontender Auscultation: normal bowel sounds Back/Spine/Pelvis Back: No back tenderness Skin General skin exam: no rashes or lesions noted Neuro General: patient alert, patient awake, patient oriented x3, moves all extremities and no focal motor deficits Cognition: normal cognition Speech: speech normal Sensory Exam: no sensory deficits noted Extrem General: normal to inspection, full ROM, capillary refill normal and other (Left below the knee amputation, otherwise unremarkable) Psych Appearance: grossly normal Mental Status: mental status grossly normal Sign Out <RUDDY Sauceda - Last Filed: 07/10/20 08:01> Sign Out Data: Sign Out Comment: 54-year-old diabetic patient presents complaining of the flu. Both septic and cardiac work-up initiated. Patient given 4 baby aspirin, Zofran, 125 cc of normal saline per hour. At time of signout work-up was just initiated, no labs back. Last updated by Terry Emerson PA at 07/09/20 16:18
[2020-07-09] MEDS: Normal Saline 1,000 ML 125 ML IV (15:55)
[2020-07-09] MEDS: Aspirin 81 MG CHEW 324 MG CH (15:55)
[2020-07-09 16:08] LABS: Abs Immature Grans 0.15 10^3/uL (0.0-0.06); Absolute Eosinophil Count 0.17 10^3/uL (0.0-0.7); Basophils % 0.6; Eosinophils % 0.8; HCT 50.2 % (40.0-50.0); HGB 16.6 g/dL (13.5-17.5); Immature Grans % 0.7; Lymphocytes % 12.8; MCH 27.7 pg (27.0-33.0); MCHC 33.1 % (32.0-36.0); MCV 83.8 fL (80-95); MPV 9.6 fL (8.0-11.0); Monocytes % 4.2; Neutrophils % 80.9; Nucleated RBC 0 %; Platelet Count 350 10^3/uL (130-400); RBC 5.99 10^6/uL (4.36-5.78); RDW 13.1 % (11.8-14.1); RDW-SD 39.5 fL; WBC 21.37 10^3/uL (4.4-10.8)
[2020-07-09 16:09] LABS: Absolute Basophil Count 0.13 10^3/uL (0.0-0.2); Absolute Lymphocyte Count 2.74 10^3/uL (1.2-3.4); Absolute Neutrophil Count 17.29 10^3/uL (1.2-6.7)
[2020-07-09] MEDS: Normal Saline Flush 10 ML SYR IVP ×3 (16:11→23:44)
[2020-07-09] MEDS: Ondansetron 4 MG/2 ML VIAL IVP (16:11)
[2020-07-09 16:22] LABS: PTT Activated 25.3 sec (21.0-27.5); Prothrombin Time 10.4 sec (9.3-11.0)
[2020-07-09 16:25] LABS: ALT 74 U/L (16-63); AST 62 U/L (15-37); Albumin 4.1 g/dL (3.4-5.0); Alkaline Phosphatase 85 U/L (46-116); Anion Gap 14.7 mmol/L (3-11); BUN 20 mg/dL (7-18); Bilirubin, Total 0.6 mg/dL (0.2-1.0); CO2 24.3 mmol/L (21.0-32.0); CREATININE 1.3 mg/dL (0.70-1.30); Calcium 11.3 mg/dL (8.5-10.1); Chloride 97 mmol/L (98-107); Estimated GFR 57.31 (mL/min/1.73m2); Glucose 144 mg/dL (74-106); Magnesium 1.7 mg/dL (1.8-2.4); NT-proBNP 26 pg/mL (<300); Potassium 4.2 mmol/L (3.5-5.1); Sodium 136 mmol/L (136-145); Total Protein 9.3 g/dL (6.4-8.2)
[2020-07-09 16:26] LABS: Troponin I < 0.05 ng/mL (<0.06)
[2020-07-09 16:29] LABS: Bilirubin Negative (Negative); Blood Negative (Negative); Clarity Clear (Clear); Glucose Negative (Negative); Ketones 15 mg/dL (Negative); Leukocyte Esterase Negative (Negative); Nitrite Negative (Negative); Urobilinogen 0.2 EU/dL (Up TO 0.2); pH 5.5 (5-8)
[2020-07-09 16:39] LABS: D-Dimer 290 ng/mlFEU (<500)
[2020-07-09 16:46] LABS: Bacteria Negative HPF (Negative); C & S Indicated? No; Crystals Negative HPF (Negative); Epithelial Cells Negative HPF (Negative); Mucus Negative (Negative); RBC 0-2 HPF (0-2); WBC 0-2 HPF (0-5)
--- NOTE | 2020-07-09 16:47 | DI.VRAD_ITS ---
PROCEDURE INFORMATION: Exam: XR Chest Exam date and time: 07/09/2020 4:33 PM Age: 54 years old Clinical indication: Shortness of breath; Patient HX: SOB TECHNIQUE: Imaging protocol: XR of the chest Views: 1 view. COMPARISON: CR XR PORTABLE CHEST AP 03/16/2020 12:59 FINDINGS: Tubes, catheters and devices: EKG wires overlie the chest. Lungs: Unremarkable. No consolidation. Pleural spaces: Unremarkable. No pleural effusion. No pneumothorax. Heart/Mediastinum: Stable cardiac silhouette. Bones/joints: Unremarkable for patient's age. IMPRESSION: No acute cardiopulmonary findings. Dictated and Authenticated by: Malika Stout MD. Ordering:CLAUDIA Stewart MD
[2020-07-09] MEDS: Lactated Ringers 1,000 ML 1000 ML IV (17:10)
[2020-07-09 17:19] LABS: Lactate 3.4 mmol/L (0.6-1.4)
[2020-07-09 17:26] LABS: COVID-19 PCR Negative (Negative); Influenza A PCR Negative (Negative); Influenza B PCR Negative (Negative); RSV PCR Negative (Negative)
[2020-07-09] MEDS: cefTRIAXone 2 GM/50 ML BAG IVPB (17:30)
--- NOTE | 2020-07-09 17:30 | DI.CT_ITS ---
EXAM: CT ABDOMEN PELVIS W CLINICAL HISTORY: mid abdominal pain, elevated lactate, septic TECHNIQUE: Imaging Protocol: Axial computed tomography images with coronal and sagittal reformatted images were created and reviewed CONTRAST MATERIAL: Intravenous: Omnipaque 350 Contrast volume:100 mL Oral: No COMPARISON: No exams were available for comparison FINDINGS: ABDOMEN: Lung Bases: Normal where visualized. Liver: There is diffuse decreased attenuation consistent with fatty infiltration. No measurable mass . Portal, Superior Mesenteric, and Splenic Veins: Unremarkable. Gallbladder and Biliary Tract: No radiodense calculus or dilation. Pancreas: Normal density, no abnormal calcifications or inflammatory process. Spleen: Normal. Adrenals: No masses seen. Kidneys: Normal size, contour and axis. No radiodense stones or obstructive uropathy. There are tiny hypodensities in the kidneys. They are too small for further characterization but likely reflect sma ll cysts. 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 Abdominal Aorta: Abdominal portion non-dilated. Mild atherosclerosis. Bowel: No obstruction or bowel wall thickening. Appendix is unremarkable. There is diverticulosis of the descending and sigmoid colon but no evidence of a acute diverticulitis. Peritoneal Cavity: No ascites, collection or mesenteric inflammatory response. No free air. Lymph Nodes: Within normal limits. Bones: Within normal limits for the patient's age. Findings of a right total hip replacement. Soft Tissues: Prior left anterior abdominal wall surgery. Bilateral fat containing inguinal hernia. PELVIS: Bladder: Symmetric distention, no gross wall thickening. The urinary bladder is partially obscured by artifact from the right hip prosthesis. Reproductive Organs: Unremarkable as visualized. Lymph Nodes: Within normal limits. Bones: Within normal limits for the patient's age. IMPRESSION: No acute abdominal or pelvic process. RADIATION DOSE DELIVERED: 1,331.19mGy.cm Total DLP DATA REPOSITORY: All CT scans at this facility are submitted to the National Radiology Data Registry (NRDR) Dose Index Registry (DIR) with the [employer] (ACR). RADIATION OPTIMIZATION: All CT scans at this facility use at least one of these dose optimization te chniques: automated exposure control; mA and/or kV adjustment per patient size (includes targeted exa ms where dose is matched to clinical indication); or iterative reconstruction.
[2020-07-09] MEDS: Normal Saline - Diluent 50 ML VIAL IV (18:11)
[2020-07-09] MEDS: Omnipaque 350 MG/ML 50 ML BTL IJ ×3 (18:13→18:17)
[2020-07-09] MEDS: LORazepam 2 MG/ML VIAL 0.5 MG IVP (18:23)
--- NOTE | 2020-07-09 18:36 | DI.VRAD_ITS ---
PROCEDURE INFORMATION: Exam: CT Abdomen And Pelvis With Contrast Exam date and time: 07/09/2020 6:06 PM Age: 54 years old Clinical indication: Abdominal tenderness; Prior surgery; Surgery date: 6+ months; Surgery type: Sigmoidectomy TECHNIQUE: Imaging protocol: Computed tomography of the abdomen and pelvis with contrast. Contrast material: OMNIPAQUE 350; Contrast volume: 100 ml; Contrast route: INTRAVENOUS (IV); COMPARISON: CR RT HIP COMPLETE AP PELVIS 10/15/2016 09:21 FINDINGS: Liver: Hepatic steatosis. Gallbladder and bile ducts: Normal. No calcified stones. No ductal dilation. Pancreas: Normal. No ductal dilation. Spleen: Normal. No splenomegaly. Adrenal glands: Normal. No mass. Kidneys and ureters: Bilateral simple renal cysts. Stomach and bowel: Diverticulosis. Evidence for prior sigmoid surgery. Appendix: No evidence of appendicitis. Intraperitoneal space: Unremarkable. No free air. No significant fluid collection. Vasculature: Unremarkable. No abdominal aortic aneurysm. Lymph nodes: Unremarkable. No enlarged lymph nodes. Urinary bladder: Unremarkable as visualized. Reproductive: Unremarkable as visualized. Bones/joints: Multilevel degenerative scoliotic changes of the thoracic and lumbar spine. Total right hip arthroplasty. Soft tissues: Postsurgical changes of the left lower quadrant. Bilateral inguinal hernias distended with fat. Infiltration of the anterior abdominal wall subcutaneous tissue possibly from insulin injections. IMPRESSION: 1. No acute findings. 2. Additional findings as discussed above. Dictated and Authenticated by: Malika Stout MD. Ordering:CARLEE De La Garza MD
--- NOTE | 2020-07-09 19:35 | W.PM.HP.N ---
Date of service: 07/09/20 Time of Service: 19:35 Assessment and Plan Assessment and plan (1) Type 2 diabetes mellitus with complication, with long-term current use of insulin: Status: Chronic Assessment and plan: Presenting glucose of 144. Fingerstick on med-surg unit of 120 Cont Liraglutide. He is on insulin detemir 115 units SQ BID. Given his N/V and poor po intake on the day of admission, will decrease detemir dose to 30 units BID and adjust as needed. Monitor glucose Diabetic diet. (2) Bipolar affective disorder: Status: Chronic Assessment and plan: Cont Nortriptyline 50mg QHS Affect is appropriate currently. (3) Amputation of left lower extremity: Status: Chronic Assessment and plan: Uses prosthesis. Qualifiers: Encounter type: subsequent encounter Qualified Code(s): S88.912D - Complete traumatic amputation of left lower leg, level unspecified, subsequent encounter (4) Leukocytosis: Status: Acute Assessment and plan: No source of infection identified. CXR, CT abd/pelvis and UA w/o acute findings. Blood cultures obtained and pending. Given a dose of Rocephin in the ED; no further antibiotics at this time. Repeat CBC this AM. May be demargination of WBCs from emesis. Qualifiers: Leukocytosis type: unspecified Qualified Code(s): D72.829 - Elevated white blood cell count, unspecified (5) Lactic acidosis: Status: Acute Assessment and plan: Venous lactate of 3.4 Given IV fluids; repeat this AM. No infectious source identified. History of Present Illness History of Present Illness Chief Complaint: Bodyaches, nausea and vomiting Narrative: This is a 54-year-old gentleman with past medical history that includes diabetes, insulin-dependent, arthritis, bipolar affective disorder, BPH with LUTS, diabetic neuropathy, diverticulitis, GERD, history of substance abuse, left below the knee amputation. He presents with multiple complaints. He states that he went to bed the night prior to admission and was asymptomatic. After waking on the day of admission he felt like he had the flu He states that he has received his flu vaccination but not his Covid vaccination. He reported diffuse body aches, some on the left side of his chest. The pain in his chest does not radiate and was not reproducible. He also reported nausea, vomiting, dry heaving all morning, abdominal pain associated with his vomiting. He reported generalized fatigue, loss of taste and smell. He initially reported mild shortness of breath without cough. No fever, visual changes, headache, neck pain, skin rash, dysuria. He denies recent travel but reports that his grandchildren are often in crowds and he has seen them. He also reports that he does not drink enough water. In the ED his WBC count was elevated at 21.37, Covid and influenza testing negative, venous lactate 3.4, BUN 20, creatinine 1.3, glucose 144, Mg 1.7, AST 62, ALT 74, Troponin negative. Urine negative for infection. CXR w/o acute findings. CT abd/pelvis w/o acute findings. Review of Systems All systems reviewed & are unremarkable except as noted in HPI and below FOR[facility]LY [facility] Medical History Arthritis (02/01/17) Back Bipolar affective disorder (02/01/17) NKHS BPH w urinary obs/LUTS Chronic toe pain, left foot (02/01/17) Diabetic polyneuropathy associated with diabetes mellitus due to underlying condition (02/18/17) RX Gabapentin Diverticulitis of intestine (02/01/17) Gastroesophageal reflux disease without esophagitis (02/01/17) History of substance abuse (02/18/17) Multiple substances [facility], [place], [place] Insomnia, unspecified (02/01/17) Mechanical dysphagia Phantom limb pain (02/01/17) LLE Type 2 diabetes mellitus with complication, with long-term current use of insulin (02/01/17) Surgical History Amputation LLE BKA. RLE toe amputations. 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 hip R, ~2014 Family History Other Adopted Social History Smoking/Tobacco Use Status: Former Tobacco Use Smoking risk assessment performed?: Yes Alcohol Intake: former Drug use: Occasionally Substance use type: former substance user and marijuana Details: Marijuana for phantom limb pain Caregiver/Support person: No Household members: children Housing: house Number of Children: 8 Communication Needs: None Do you need help understanding health information?: Never current occupation: Disabled Pets and animals: No Sexually active: No Do you think of yourself as: straight/heterosexual Current gender identity: male What is your relationship status?: How often do you talk on the phone with friends or family?: once per week How often do you get together with friends or relatives?: once per week How often do you attend religion or denominational services?: 4 or more times per year Panel score (0-1 are the most socially isolated patients): 1 NHANES result reviewed/action taken: No What type of physical activity do you participate in: none and walking Duration: < 15 minutes/day Frequency: 1-2 times per week Octavia/Rastafari: Jain Special octavia needs: No Seatbelt use: always Helmet use: Yes Helmet use: sometimes Drive intox or ride w/intox 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: No Working smoke detector in home: Yes Fire extinguisher in home: Yes Carbon monox detector in home: Yes Do you feel safe at home: Yes Do you feel safe in your relationship?: Yes Additional Social history: 8 children total Meds Home Medications and Allergies Allergies Allergy/AdvReac Type Severity Reaction Status Date / Time No Known Drug Allergies Allergy Verified 07/09/20 15:33 Home Medications Medication Instructions Recorded Confirmed Type tadalafil [Cialis] 5 mg PO daily prn #10 tab 03/25/17 07/09/20 Rx Prosthetic accessories #1 ea 08/29/18 07/09/20 Rx acetaminophen 500 mg PO Q6H PRN PRN #60 tab 06/23/19 07/09/20 Rx ibuprofen 600 mg PO TID PRN #30 tab 06/23/19 07/09/20 Rx Diabetic shoes #2 each 07/10/19 07/09/20 Rx lisinopril 10 mg tablet 10 mg PO DAILY #90 tab-cap 12/14/19 07/09/20 Rx metformin 1,000 mg tablet 1,000 mg PO BID@0800,1700 #180 tab 12/14/19 07/09/20 Rx omeprazole 20 mg capsule,delayed 20 mg PO DAILY #90 tab-cap 12/14/19 07/09/20 Rx release finasteride 5 mg tablet 5 mg PO DAILY #90 tab 12/18/19 07/09/20 Rx tamsulosin 0.4 mg capsule 0.4 mg PO DAILY #90 cap 12/18/19 07/09/20 Rx polyethylene glycol 3350 17 238 g PO ONCE #238 g 02/04/20 07/09/20 Rx gram/dose oral powder insulin detemir U-100 100 unit/mL 115 unit SUB-Q BID #15 ml MDD 115 02/15/20 07/09/20 Rx (3 mL) subcutaneous pen units gabapentin 600 mg tablet See Rx Instructions PO DIRECTED 02/25/20 07/09/20 Rx #450 tab MDD 3000 mg nortriptyline 50 mg capsule 50 mg PO QHS #90 cap 05/26/20 07/09/20 Rx trazodone 100 mg tablet 100 mg PO QHS #90 tab 05/26/20 07/09/20 Rx blood sugar diagnostic #300 ea 06/17/20 07/09/20 Rx blood-glucose meter #1 ea 06/17/20 07/09/20 Rx lancets 33 gauge #300 ea 06/17/20 07/09/20 Rx liraglutide 0.6 mg/0.1 mL (18 mg/3 See Rx Instructions SUBCUT 06/17/20 07/09/20 Rx mL) subcutaneous pen injector .COMPLEX #6 ml insulin aspart U-100 100 unit/mL See Rx Instructions SUB-Q AC #15 06/20/20 07/09/20 Rx (3 mL) subcutaneous pen ml MDD 54 units pen needle, diabetic 32 gauge x #100 ea 06/24/20 07/09/20 Rx 5/32 Exam Const General: cooperative and no acute distress Nutritional Appearance: overweight Orientation: alert (after waking from sleep) and oriented x3 Eyes Sclera: sclerae normal Pupils: PERRL Neck Neck: full ROM and no JVD Resp Effort & Inspection: normal respiratory effort Auscultation: clear to auscultation bilaterally Cardio Rate: regular rate Rhythm: regular rhythm Heart Sounds: S1 normal and S2 normal GI Palpation: soft and tender periumbilically (mild w/o guarding/rebound) Auscultation: normal bowel sounds Neuro General: moves all extremities and no focal motor deficits Cranial Nerves: facial strength normal Speech: speech normal Extrem General: no pedal edema, no calf tenderness and amputation noted Below the knee: left Psych Appearance: grossly normal Speech and Movement: speech and movement normal Mood: congruent mood Affect: normal affect Results Labs Result diagrams: 07/09/20 15:55 07/09/20 15:55 Labs: Laboratory Results - last 24 hr 07/09/20 07/09/20 07/09/20 15:55 15:55 15:55 WBC 21.37 H RBC 5.99 H Hgb 16.6 Hct 50.2 H MCV 83.8 MCH 27.7 MCHC 33.1 RDW 13.1 Plt Count 350 MPV 9.6 Immature Gran % 0.7 Neutrophils % 80.9 Lymphocytes % 12.8 Monocytes % 4.2 Eosinophils % 0.8 Basophils % 0.6 Nucleated RBC % 0 Absolute Neutrophils 17.29 H Absolute Lymphocytes 2.74 Absolute Monocytes 0.90 H Absolute Eosinophils 0.17 Absolute Basophils 0.13 PT 10.4 INR 1.0 APTT 25.3 D-Dimer 290 VBG Lactate Sodium 136 Potassium 4.2 Chloride 97 L Carbon Dioxide 24.3 Anion Gap 14.7 H BUN 20 H Creatinine 1.3 Estimated GFR/1.73 m2 57.31 Glucose 144 H Calcium 11.3 H Magnesium 1.7 L Total Bilirubin 0.6 AST 62 H ALT 74 H Alkaline Phosphatase 85 Troponin I < 0.05 NT-Pro-B Natriuret Pep 26 Total Protein 9.3 H Albumin 4.1 Urine Color Urine Clarity Urine pH Ur Specific Harrison Urine Protein Urine Ketones Urine Blood Urine Nitrite Urine Bilirubin Urine Urobilinogen Ur Leukocyte Esterase Urine RBC Urine WBC Ur Epithelial Cells Urine Crystals Urine Bacteria Urine Mucus Ur Culture Indicated? Urine Glucose COVID-19 Source SARS-CoV-2 (PCR) Influenza Type A (PCR) Influenza Type B (PCR) RSV (PCR) 07/09/20 07/09/20 07/09/20 16:00 16:11 16:12 WBC RBC Hgb Hct MCV MCH MCHC RDW Plt Count MPV Immature Gran % Neutrophils % Lymphocytes % Monocytes % Eosinophils % Basophils % Nucleated RBC % Absolute Neutrophils Absolute Lymphocytes Absolute Monocytes Absolute Eosinophils Absolute Basophils PT INR APTT D-Dimer VBG Lactate Cancelled Sodium Potassium Chloride Carbon Dioxide Anion Gap BUN Creatinine Estimated GFR/1.73 m2 Glucose Calcium Magnesium Total Bilirubin AST ALT Alkaline Phosphatase Troponin I NT-Pro-B Natriuret Pep Total Protein Albumin Urine Color Yellow Urine Clarity Clear Urine pH 5.5 Ur Specific Harrison 1.020 Urine Protein 100 H Urine Ketones 15 H Urine Blood Negative Urine Nitrite Negative Urine Bilirubin Negative Urine Urobilinogen 0.2 Ur Leukocyte Esterase Negative Urine RBC 0-2 Urine WBC 0-2 Ur Epithelial Cells Negative Urine Crystals Negative Urine Bacteria Negative Urine Mucus Negative Ur Culture Indicated? No Urine Glucose Negative COVID-19 Source Nasopharyx SARS-CoV-2 (PCR) Negative Influenza Type A (PCR) Negative Influenza Type B (PCR) Negative RSV (PCR) Negative 07/09/20 17:00 WBC RBC Hgb Hct MCV MCH MCHC RDW Plt Count MPV Immature Gran % Neutrophils % Lymphocytes % Monocytes % Eosinophils % Basophils % Nucleated RBC % Absolute Neutrophils Absolute Lymphocytes Absolute Monocytes Absolute Eosinophils Absolute Basophils PT INR APTT D-Dimer VBG Lactate 3.4 H* Sodium Potassium Chloride Carbon Dioxide Anion Gap BUN Creatinine Estimated GFR/1.73 m2 Glucose Calcium Magnesium Total Bilirubin AST ALT Alkaline Phosphatase Troponin I NT-Pro-B Natriuret Pep Total Protein Albumin Urine Color Urine Clarity Urine pH Ur Specific Harrison Urine Protein Urine Ketones Urine Blood Urine Nitrite Urine Bilirubin Urine Urobilinogen Ur Leukocyte Esterase Urine RBC Urine WBC Ur Epithelial Cells Urine Crystals Urine Bacteria Urine Mucus Ur Culture Indicated? Urine Glucose COVID-19 Source SARS-CoV-2 (PCR) Influenza Type A (PCR) Influenza Type B (PCR) RSV (PCR) Last Vital Signs Temp 36.3 C L 07/09/20 15:29 Pulse 89 07/09/20 19:00 Resp 13 07/09/20 19:01 BP 108/82 07/09/20 19:00 Pulse Ox 98 07/09/20 19:01 COVID-19 Screening Have you, or household traveled for leisure in last 14 days?: No Had IN PERSON contact w/suspected or confirmed C-19 person: Yes
[2020-07-09 19:49] LABS: Troponin I < 0.05 ng/mL (<0.06)
[2020-07-09] MEDS: Gabapentin 600 MG TAB 1200 MG PO (23:40)
[2020-07-09] MEDS: traZODone 100 MG TAB PO (23:42)
[2020-07-09] MEDS: Magnesium Oxide 400 MG TAB PO (23:42)
[2020-07-09] MEDS: Normal Saline 1,000 ML 100 ML IV (23:44)
--- NOTE | 2020-07-10 03:26 | NUR.NOTE ---
Nursing Note: Pt requests no male caregivers r/t nursing, but does not mind male doctors. Patient wears uatsdin undergarments r/t his Bahai shelbi (T-shirt and shorts) and states he must wear them at all times, but would permit them to be laundered if his daughters can drop off an extra pair for him.
[2020-07-10 07:03] LABS: Lactate 0.7 mmol/L (0.6-1.4)
[2020-07-10 07:04] LABS: Abs Immature Grans 0.06 10^3/uL (0.0-0.06); Absolute Basophil Count 0.06 10^3/uL (0.0-0.2); Absolute Eosinophil Count 0.19 10^3/uL (0.0-0.7); Absolute Lymphocyte Count 1.78 10^3/uL (1.2-3.4); Absolute Monocyte Count 0.43 10^3/uL (0.1-0.8); Absolute Neutrophil Count 3.89 10^3/uL (1.2-6.7); Basophils % 0.9; Immature Grans % 0.9; Lymphocytes % 27.8; MCH 28.4 pg (27.0-33.0); MCHC 33.9 % (32.0-36.0); MCV 83.6 fL (80-95); MPV 9.3 fL (8.0-11.0); Monocytes % 6.7; Neutrophils % 60.7; Nucleated RBC 0 %; RBC 4.58 10^6/uL (4.36-5.78); RDW 13.3 % (11.8-14.1); RDW-SD 39.9 fL
[2020-07-10 07:10] LABS: WBC 6.41 10^3/uL (4.4-10.8)
[2020-07-10 07:11] LABS: HCT 38.3 % (40.0-50.0); Platelet Count 197 10^3/uL (130-400)
[2020-07-10 07:29] LABS: ALT 47 U/L (16-63); AST 32 U/L (15-37); Albumin 2.9 g/dL (3.4-5.0); Alkaline Phosphatase 61 U/L (46-116); Anion Gap 11.8 mmol/L (3-11); BUN 17 mg/dL (7-18); Bilirubin, Total 0.3 mg/dL (0.2-1.0); CO2 22.2 mmol/L (21.0-32.0); CREATININE 1.1 mg/dL (0.70-1.30); Calcium 8.7 mg/dL (8.5-10.1); Chloride 105 mmol/L (98-107); Glucose 175 mg/dL (74-106); Magnesium 1.5 mg/dL (1.8-2.4); Potassium 4.1 mmol/L (3.5-5.1); Sodium 139 mmol/L (136-145); Total Protein 6.6 g/dL (6.4-8.2)
--- NOTE | 2020-07-10 08:10 | PDOC.CMIN ---
- If Service Date Differs Date of service: 07/10/20 Time of Service: 08:10 Care Management Initial Assess REASON FOR HOSPITALIZATION:: Lactic acidosis, leukocytosis. PAST MEDICAL HISTORY/PAST SURGICAL HISTORY:: Medical History: Arthritis - Back, Bipolar affective disorder - NKHS, BPH w urinary obs/LUTS, Chronic toe pain, left foot, Diabetic polyneuropathy associated with diabetes mellitus due to underlying condition - RX Gabapentin, Diverticulitis of intestine, Gastroesophageal reflux disease without esophagitis, History of substance abuse - Multiple substances. 1980s, [place], [place], Insomnia, unspecified, Mechanical dysphagia,. Phantom limb pain - LLE, and Type 2 diabetes mellitus with complication, with long-term current use of insulin. Surgical History: Amputation - LLE BKA - RLE toe amputations, Amputation of left lower extremity (02/18/17) - BKA; wears prosthetic,. Colectomy, Hernia repair, History of carpal tunnel release - Right, History of partial amputation of toe of right foot, and Total replacement of hip - R. PREVIOUS FUNCTIONAL STATUS/SOCIAL/FAMILY SUPPORTS:: Jimmie is a 54 year old male who resides in [facility] with four of his eight daughters. He reports he has been on disability since 1998. Jimmie shares he has a lot of hobbies but he currently has no motivation to do much of anything. He states he rarely leaves his home during winter months out of fear of falling. His left leg was amputated below the knee in 2017 and he now has a prosthesis. Jimmie states his daughters are supportive of him and help him perform his ADLs as needed. He is also a member of the [employer] [facility] [employer] [facility] and they are a source of support for him and his family. CURRENT FUNCTIONAL STATUS:: LUCINDA is unable to meet with Jimmie as he is on Covid 19 precautions but does speak with him on the telephone. He states two chaplains from his [employer] would like to come and give him a blessing. LUCINDA informs him of the no visitor policy and offers to set up a virtual meeting. He states he will think about it and will let me know at a later time whether he wishes to do a meeting virtually. ADVANCE DIRECTIVES:: None on file; declines form at this time. Has patient been provided with info about the portal/API?: Yes Did the patient sign up for the portal?: Yes CODE STATUS:: Full Code INSURANCE COVERAGE / FINANCIAL ISSUES:: [employer] [place] and Medicaid. CURRENT HOME/COMMUNITY SERVICES/EQUIPMENT:: Jimmie has a prosthesis, a shower seat, and a commode. He uses [facility] for transportation and gets Meals on Wheels. He denies seeing a therapist and states I'm not interested in talk therapy. PRIMARY CARE PHYSICIAN:: Zeeshan Singh DO. POTENTIAL DISCHARGE NEEDS:: Follow up appointment with PCP and referral for diabetic education. PATIENT/FAMILY EDUCATION NEEDS:: Discharge instructions, limitations, and follow up plan of care, including Ask Me Three and self management. ANTICIPATED BARRIERS TO DISCHARGE:: None. TRANSPORTATION:: Via private vehicle with a member of his [employer] vs. [facility]. PLAN:: Anticipate Jimmie will be discharged home with a resumption of MOW when medically cleared by provider. He will follow up with his PCP and plan of care as directed. Jimmie will either be driven home by a member of his [employer] via private vehicle or by [facility] coordinated by CM. CM will continue to follow.
[2020-07-10 08:30] VITALS: BP 122/82; PULSE 80; RESP 18; TEMP 36.8; O2SAT 95
[2020-07-10] MEDS: Insulin Aspart 300 UNITS/3 ML PEN SC (08:38)
[2020-07-10] MEDS: Finasteride 5 MG TAB PO (08:42)
[2020-07-10] MEDS: Tamsulosin 0.4 MG CAPCR PO (08:42)
[2020-07-10] MEDS: Omeprazole 20 MG CAPCR PO (08:42)
[2020-07-10] MEDS: Gabapentin 600 MG TAB 1200 MG PO (08:42)
[2020-07-10] MEDS: Lisinopril 10 MG TAB PO (08:42)
[2020-07-10] MEDS: Magnesium Oxide 400 MG TAB PO (08:42)
[2020-07-10] MEDS: Gabapentin 600 MG TAB PO (11:51)
--- NOTE | 2020-07-10 16:18 | DSE_ITS ---
Date of service: 07/10/20 Time of Service: 16:18 DS: Diagnosis Discharge Diagnosis (1) Type 2 diabetes mellitus with complication, with long-term current use of insulin: Status: Chronic (2) Bipolar affective disorder: Status: Chronic (3) Amputation of left lower extremity: Status: Chronic (4) Leukocytosis: Status: Resolved (5) Lactic acidosis: Status: Resolved Discharge Plan Disposition Patient Disposition: HOME Condition: Improving Discharge Details Reason For Visit: LACTIC ACIDOSIS, LEUKOCYTOSIS Admit Date/Time: 07/09/20 19:22 Admit Provider: Patrick García Attending Provider: Patrick García Primary Care Provider: Zeeshan Singh [facility] Hospital Course: 52-year-old male with a history of diabetes mellitus, bipolar disorder, BPH, diabetic neuropathy, GERD, history of substance abuse, status post left BKA presented with acute onset of flulike symptoms. He states he went to bed the night prior to admission was asymptomatic. After awakening on the morning of admission he felt like he had the flu which she had severe body aches nausea vomiting and dry heaves that lasted all morning long a no see had sudden loss of taste and smell. He reports some mild shortness of breath with no cough. No fevers neckache headache and no dysuria. Patient denies any recent travel and has had no known COVID-19 exposure but reports that his teenage grandchildren often visit him and they do not wear masks he says that they have been around other kids in schools where there is been known cases of COVID-19. Work-up in the emergency department demonstrated a leukocytosis of 21,000 with a venous blood lactate of 3.4 and an elevated BUN of 20 creatinine 1.3 and a magnesium of 1.7. His troponin I level was within normal limits. Urinalysis was unremarkable. Nasopharyngeal swab was obtained for PCR analysis for SARS-CoV-2 as well as RSV and influenza a and B. All of these viral studies were negative. Chest x-ray showed no acute pulmonary findings. CT of the abdomen pelvis with contrast likewise showed no acute abdominal or pelvic process. Blood cultures were obtained and he was given a dose of Rocephin in the emergency department but no further antibiotics were ordered by the cash management officer pending blood culture results. At the time of discharge his blood culture results are still pending. Patient was hydrated with a couple liters of IV fluids. Repeat labs were obtained the next morning which demonstrated resolution of his lactic acidosis as well as resolution of his leukocytosis. On the day of discharge his white cell count had dropped from 21,000 down to 6400. He had no lymphopenia and no neutropenia. On the day of discharge his blood lactate was down to 0.7. His repeat CMP on the day of discharge was unremarkable. His previously elevated transaminases with an AST of 62 and an ALT of 74 had dropped to normal at 32 and 47 respectively. Serial troponin I levels were measured and came back negative at less than 0.05x2 sets. As the patient's nausea and vomiting had resolved and he had no further symptoms except persistent anosmia and dysgeusia it was felt that the patient could be discharged home safely with close follow- up with his PCP. I did warn the patient about the potential for a false negative nasopharyngeal swab for SARS-CoV-2 particularly if his exposure to COVID-19 had been within the last 24 to 48 hours. I advised him that if he has further symptoms such as shortness of breath or fevers or rigors or headaches that he should seek immediate medical attention and for now I recommend that he quarantine for the next week and monitor his symptoms. Home Meds and New Rx's Prescriptions: No Action (DME) Prosthetic accessories Qty: 1 RF: 0 gabapentin 600 mg tablet See Rx Instructions PO DIRECTED MDD 3000 mg Qty: 450 RF: 3 polyethylene glycol 3350 17 gram/dose powder 238 g PO ONCE Qty: 238 RF: 0 (DME) Diabetic shoes Qty: 2 RF: 0 tamsulosin [Flomax] 0.4 mg capsule 0.4 mg PO DAILY Qty: 90 RF: 3 finasteride 5 mg tablet 5 mg PO DAILY Qty: 90 RF: 3 nortriptyline 50 mg capsule 50 mg PO QHS Qty: 90 RF: 3 trazodone 100 mg tablet 100 mg PO QHS Qty: 90 RF: 3 Victoza 2-Benjamín 0.6 mg/0.1 mL (18 mg/3 mL) pen injector See Rx Instructions subcut .COMPLEX Qty: 6 RF: 3 insulin aspart U-100 [Novolog Flexpen U-100 Insulin] 100 unit/mL (3 mL) i nsulin pen See Rx Instructions Sub-Q AC MDD 54 units Qty: 15 RF: 12 tadalafil [Cialis] 5 MG tablet 5 mg PO daily prn Qty: 10 RF: 0 lisinopril 10 mg tablet 10 mg PO DAILY Qty: 90 RF: 3 metformin [Glucophage] 1,000 mg tablet 1,000 mg PO BID@0800,1700 Qty: 180 RF: 3 omeprazole 20 mg capsule,delayed release(DR/EC) 20 mg PO DAILY Qty: 90 RF: 3 Levemir FlexTouch U-100 Insuln 100 unit/mL (3 mL) insulin pen 115 unit Sub-Q BID MDD 115 units Qty: 15 RF: 6 (DME) blood-glucose meter [OneTouch Verio Flex meter] Misc See Rx Instructions .ROUTE .MEDSUPPLY Qty: 1 RF: 0 (DME) lancets [OneTouch Delica Plus Lancet] 33 gauge misc See Rx Instructions .ROUTE .MEDSUPPLY Qty: 300 RF: 11 (DME) OneTouch Verio test strips Strip See Rx Instructions .ROUTE .MEDSUPPLY Qty: 300 RF: 3 (DME) pen needle, diabetic [BD Ultra-Fine Paige Pen Needle] 32 gauge x 5/32 needle 1 ea Miscellaneous 5X/DAY Qty: 100 RF: 11 acetaminophen 500 mg tablet 500 mg PO Q6H PRN PRN (Reason: pain) Qty: 60 RF: 3 ibuprofen 600 mg tablet 600 mg PO TID PRNQty: 30 RF: 3 Discharge Instructions Instructions: Lactic Acidosis (GEN), COVID-19 and Chronic Health Conditions (DC), COVID-19: Slow the Coronavirus Spread (DC), Face Coverings (Masks) and COVID-19 (DC) Additional Instructions: Your symptoms are suspicious for COVIID-19 however, your nasophyaryngeal swab was negative for SARS-CoV2, the virus that causes COVID-19. Furthermore your nasal swab was negative for influenza and for RSV (a common respiratory virus). While this is reassuring, nasopharyngeal swabs obtained within the first couple days after exposure to COVID-19 may not be positive. You should still remain at home in isolation for the next 10 days and monitor your symptoms such as fever, shortness of breath, chills, muscle aches. Your sudden onset of loss of smell and taste are compatible w/ COVID-19. I would recommend retesting for SARS-CoV2 virus within the next 5 to 7 days or sooner if you develope any of the symptoms described above. Your family should avoid contact with you while you are in isolation and you and your family should always mask when gathered together indoors or when you are out in public. If you develope fevers, chills, or shortness of breath, you should seek immediate medical attention and be retested immediately. Stand Alone Forms: Nursing Discharge Form Referrals: Zeeshan Singh DO [Primary Care Provider] - (call the office tomorrow for follow up in 2 to 3 weeks) Activity:: Activity as Tolerated Equipment/Supplies:: No Equipment Needed Diet:: Carb Counting Discharge Orders Discharge Orders: Discharge Order (Routine); Ordered 07/10/20 Ordered By: Terry Martin Discharge Data Discharge Date/Time-TO BE ENTERED AT DEPARTURE: 07/10/20 16:49 DS: Summary Time Spent with Patient providing and/or coordinating discharge services: Less than 30 minutes Status at Discharge Functional status at discharge: independent ambulation Overall status at discharge: patient is progressing back to baseline Mental Status: mental status grossly normal Speech and Movement: speech and movement normal Mood: congruent mood Affect: normal affect Exam Psych Mental Status: mental status grossly normal Speech and Movement: speech and movement normal Mood: congruent mood Affect: normal affect DS: Data Vitals/I&O Vitals and I&O: Vital Signs Temperature 36.8 C 07/10/20 08:30 Temperature Source Tympanic 07/10/20 08:30 Pulse 80 07/10/20 08:30 Pulse Rhythm Regular 07/10/20 16:11 Pulse 95 H 07/09/20 19:31 Respiratory Rate 18 07/10/20 08:30 Respiratory Effort Non-Labored 07/10/20 16:11 Respiratory Depth Normal 07/10/20 16:11 Respiratory Pattern Normal 07/10/20 16:11 Blood Pressure 122/82 07/10/20 08:30 Blood Pressure Mean 97 07/09/20 19:30 Blood Pressure Position Supine 07/09/20 15:29 Pulse Oximetry 95 07/10/20 08:30 Oxygen Delivery Method Room Air 07/10/20 08:30 Oxygen Flow Rate 0 07/10/20 08:30 Pain Level 2 07/10/20 08:30 Comment 07/09/20 15:29 Intake & Output 07/09/20 07/10/20 07/10/20 23:59 11:59 23:59 Intake Total 2049 510 / 510 Output Total 525 / 525 1350 / 1800 450 / 1800 Balance 1525 / 1525 -840 / -1290 -450 / -1290 Weight 100.1 kg Intake: IV 2049 10 / 10 Oral 500 / 500 Output: Urine 525 / 525 1350 / 1800 450 / 1800 Other: Urine Color Yellow Light Cindy Yellow Urine Appearance Clear Clear Clear Urine Odor Normal Strong Normal Voiding Methods Urinal Urinal Urinal Data Completed and Pending Labs on day of discharge: Labs from last 24 hours 07/10/20 07/10/20 07/10/20 06:53 06:53 06:53 WBC 6.41 D RBC 4.58 Hgb 13.0 L D Hct 38.3 L D MCV 83.6 MCH 28.4 MCHC 33.9 RDW 13.3 Plt Count 197 D MPV 9.3 Immature Gran % 0.9 Neutrophils % 60.7 Lymphocytes % 27.8 Monocytes % 6.7 Eosinophils % 3.0 Basophils % 0.9 Nucleated RBC % 0 Absolute Neutrophils 3.89 Absolute Lymphocytes 1.78 Absolute Monocytes 0.43 Absolute Eosinophils 0.19 Absolute Basophils 0.06 PT INR APTT D-Dimer VBG Lactate 0.7 Sodium 139 Potassium 4.1 Chloride 105 Carbon Dioxide 22.2 Anion Gap 11.8 H BUN 17 Creatinine 1.1 Estimated GFR/1.73 m2 >= 60.00 Glucose 175 H Calcium 8.7 Ionized Calcium Magnesium 1.5 L Total Bilirubin 0.3 AST 32 ALT 47 Alkaline Phosphatase 61 Troponin I NT-Pro-B Natriuret Pep Total Protein 6.6 Albumin 2.9 L Urine Color Urine Clarity Urine pH Ur Specific [place] Urine Protein Urine Ketones Urine Blood Urine Nitrite Urine Bilirubin Urine Urobilinogen Ur Leukocyte Esterase Urine RBC Urine WBC Ur Epithelial Cells Urine Crystals Urine Bacteria Urine Mucus Ur Culture Indicated? Urine Glucose COVID-19 Source SARS-CoV-2 (PCR) Influenza Type A (PCR) Influenza Type B (PCR) RSV (PCR) 07/09/20 07/09/20 07/09/20 18:55 17:00 17:00 WBC RBC Hgb Hct MCV MCH MCHC RDW Plt Count MPV Immature Gran % Neutrophils % Lymphocytes % Monocytes % Eosinophils % Basophils % Nucleated RBC % Absolute Neutrophils Absolute Lymphocytes Absolute Monocytes Absolute Eosinophils Absolute Basophils PT INR APTT D-Dimer VBG Lactate 3.4 H* Sodium Potassium Chloride Carbon Dioxide Anion Gap BUN Creatinine Estimated GFR/1.73 m2 Glucose Calcium Ionized Calcium Pending Magnesium Total Bilirubin AST ALT Alkaline Phosphatase Troponin I < 0.05 NT-Pro-B Natriuret Pep Total Protein Albumin Urine Color Urine Clarity Urine pH Ur Specific [place] Urine Protein Urine Ketones Urine Blood Urine Nitrite Urine Bilirubin Urine Urobilinogen Ur Leukocyte Esterase Urine RBC Urine WBC Ur Epithelial Cells Urine Crystals Urine Bacteria Urine Mucus Ur Culture Indicated? Urine Glucose COVID-19 Source SARS-CoV-2 (PCR) Influenza Type A (PCR) Influenza Type B (PCR) RSV (PCR) 07/09/20 07/09/20 07/09/20 16:12 16:11 16:00 WBC RBC Hgb Hct MCV MCH MCHC RDW Plt Count MPV Immature Gran % Neutrophils % Lymphocytes % Monocytes % Eosinophils % Basophils % Nucleated RBC % Absolute Neutrophils Absolute Lymphocytes Absolute Monocytes Absolute Eosinophils Absolute Basophils PT INR APTT D-Dimer VBG Lactate Cancelled Sodium Potassium Chloride Carbon Dioxide Anion Gap BUN Creatinine Estimated GFR/1.73 m2 Glucose Calcium Ionized Calcium Magnesium Total Bilirubin AST ALT Alkaline Phosphatase Troponin I NT-Pro-B Natriuret Pep Total Protein Albumin Urine Color Yellow Urine Clarity Clear Urine pH 5.5 Ur Specific [place] 1.020 Urine Protein 100 H Urine Ketones 15 H Urine Blood Negative Urine Nitrite Negative Urine Bilirubin Negative Urine Urobilinogen 0.2 Ur Leukocyte Esterase Negative Urine RBC 0-2 Urine WBC 0-2 Ur Epithelial Cells Negative Urine Crystals Negative Urine Bacteria Negative Urine Mucus Negative Ur Culture Indicated? No Urine Glucose Negative COVID-19 Source Nasopharyx SARS-CoV-2 (PCR) Negative Influenza Type A (PCR) Negative Influenza Type B (PCR) Negative RSV (PCR) Negative 07/09/20 07/09/20 15:55 15:55 WBC RBC Hgb Hct MCV MCH MCHC RDW Plt Count MPV Immature Gran % Neutrophils % Lymphocytes % Monocytes % Eosinophils % Basophils % Nucleated RBC % Absolute Neutrophils Absolute Lymphocytes Absolute Monocytes Absolute Eosinophils Absolute Basophils PT 10.4 INR 1.0 APTT 25.3 D-Dimer 290 VBG Lactate Sodium 136 Potassium 4.2 Chloride 97 L Carbon Dioxide 24.3 Anion Gap 14.7 H BUN 20 H Creatinine 1.3 Estimated GFR/1.73 m2 57.31 Glucose 144 H Calcium 11.3 H Ionized Calcium Magnesium 1.7 L Total Bilirubin 0.6 AST 62 H ALT 74 H Alkaline Phosphatase 85 Troponin I < 0.05 NT-Pro-B Natriuret Pep 26 Total Protein 9.3 H Albumin 4.1 Urine Color Urine Clarity Urine pH Ur Specific [place] Urine Protein Urine Ketones Urine Blood Urine Nitrite Urine Bilirubin Urine Urobilinogen Ur Leukocyte Esterase Urine RBC Urine WBC Ur Epithelial Cells Urine Crystals Urine Bacteria Urine Mucus Ur Culture Indicated? Urine Glucose COVID-19 Source SARS-CoV-2 (PCR) Influenza Type A (PCR) Influenza Type B (PCR) RSV (PCR) 07/09/20 17:08 Blood Blood Culture - Pending 07/09/20 17:00 Blood Blood Culture - Pending Preliminary micro results at discharge 07/09/20 17:08 Blood Culture - Pending Blood 07/09/20 17:00 Blood Culture - Pending Blood [facility] Medical History Arthritis (02/01/17) Back Bipolar affective disorder (02/01/17) [facility] BPH w urinary obs/LUTS Chronic toe pain, left foot (02/01/17) Diabetic polyneuropathy associated with diabetes mellitus due to underlying condition (02/18/17) RX Gabapentin Diverticulitis of intestine (02/01/17) Gastroesophageal reflux disease without esophagitis (02/01/17) History of substance abuse (02/18/17) Multiple substances [facility] [place], [place] Insomnia, unspecified (02/01/17) Mechanical dysphagia Phantom limb pain (02/01/17) LLE Type 2 diabetes mellitus with complication, with long-term current use of insulin (02/01/17) Surgical History Amputation LLE BKA. RLE toe amputations. 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 hip R, ~2014 Family History Other Adopted Social History Smoking/Tobacco Use Status: Former Tobacco Use Smoking risk assessment performed?: Yes Alcohol Intake: former Drug use: Occasionally Substance use type: former substance user and marijuana Details: Marijuana for phantom limb pain Caregiver/Support person: No Household members: children Housing: house Number of Children: 8 Communication Needs: None Do you need help understanding health information?: Never current occupation: Disabled Pets and animals: No Sexually active: No Do you think of yourself as: straight/heterosexual Current gender identity: male What is your relationship status?: How often do you talk on the phone with friends or family?: once per week How often do you get together with friends or relatives?: once per week How often do you attend confucianism or pentecostalism services?: 4 or more times per year Panel score (0-1 are the most socially isolated patients): 1 NHANES result reviewed/action taken: No What type of physical activity do you participate in: none and walking Duration: < 15 minutes/day Frequency: 1-2 times per week Octavia/Anglican: Rossana Special octavia needs: No Seatbelt use: always Helmet use: Yes Helmet use: sometimes Drive 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
[2020-07-10 16:30] LABS: Ionized Calcium 1.22 mmol/L (1.12-1.32)
--- NOTE | 2020-07-10 17:17 | PDOC.CMDIS ---
- If Service Date Differs Date of service: 07/10/20 Time of Service: 17:17 LACE Index Scoring Tool - Questions: Length of Stay (in days): 1 Acuity (Admit via E.D.?): Yes E.D. Visits: 2 - Answers: Total Score: 6 Risk of Readmission: Low Risk Care Management Discharge Reason for Hospitalization: Lactic acidosis, leukocytosis. Discharge Plan: Jimmie is discharged home with a resumption of MOW. He will follow up with his PCP and discharge plan of care as instructed. He is being driven home via private vehicle with family. Patient/Family Education Needs: Discharge instructions, limitations, and follow up plan of care.
== END 2020-07-10 16:49 | disposition home or self-care (01) ==
LOC: ER 19:36 → MS 20:16
PROVIDERS: Physician Assistant; Admitting Provider Family Medicine; Emergency Provider Physician Assistant; PCP Family Medicine; Visit Provider Family Medicine
DX: E87.2 Acidosis (principal); D72.829 Elevated white blood cell count, unspecified; M79.10 Myalgia, unspecified site; E11.40 Type 2 diabetes mellitus with diabetic neuropathy, unspecified; R11.10 Vomiting, unspecified; F31.9 Bipolar disorder, unspecified; N40.0 Benign prostatic hyperplasia without lower urinary tract symptoms; K21.9 Gastro-esophageal reflux disease without esophagitis; Z20.822 Contact with and (suspected) exposure to COVID-19; Z89.512 Acquired absence of left leg below knee
CPT/HCPCS: 36410; 36415; 80053; 87040; 87637; 93005; 96361; 96365; 96375; 99222; 99238; 99285; 71045; 74177; 81003; 81015; 82330; 83605; 83735; 83880; 84484; 85025; 85379; 85610; 85730; 93010; 99217; 99219; J2060; J2405; J3490; Q9967

== ENCOUNTER → 2020-08-25 14:21 | Outpatient (BNVA) | payer OTHER, MEDICAID, SELFPAY | PROVIDERS: PCP Family Medicine; Visit Provider Psychiatry & Neurology Neurology | DX: E11.42 Type 2 diabetes mellitus with diabetic polyneuropathy (principal); Z79.4 Long term (current) use of insulin; G54.6 Phantom limb syndrome with pain; F31.9 Bipolar disorder, unspecified | CPT/HCPCS: 99442 ==

== ENCOUNTER 2020-09-05 01:28 | Outpatient (CLI) | payer OTHER, MEDICAID, SELFPAY ==
--- NOTE | 2020-09-05 07:48 | DI.RAD_ITS ---
Exam(s) XR FOOT RT COMPLETE EXAM: XR FOOT RT COMPLETE CLINICAL HISTORY: R/O osteomyelitis of the R heel,diabetic ulcer,e11.621. TECHNIQUE: 2D digital imaging was performed. COMPARISON: No exams were available for comparison FINDINGS: BONES: No acute fracture is present. No bony destructive lesion is seen. The calcaneus appears intac t. No radiographic evidence to suggest acute osteomyelitis. There is a deformity of the 5th metatar aleah which may be reflect prior trauma. JOINTS: No dislocation present. SOFT TISSUE: Normal. IMPRESSION: No radiographic evidence to suggest acute osteomyelitis. If there is continued clinical concern, a 3 phase bone scan or an MRI may be considered for further evaluation. DATA REPOSITORY: RADIATION DOSE DELIVERED:
== END 2020-09-05 01:48 ==
PROVIDERS: PCP Family Medicine; Visit Provider Family Medicine
DX: E11.621 Type 2 diabetes mellitus with foot ulcer (principal); M20.5X1 Other deformities of toe(s) (acquired), right foot
CPT/HCPCS: 73630

== ENCOUNTER 2020-09-07 15:04 | Outpatient (REF) | payer OTHER, MEDICAID, SELFPAY | END 2020-09-07 15:05 | disposition home or self-care (01) | LOC: LBN 15:04 | PROVIDERS: PCP Family Medicine; Visit Provider Family Medicine | DX: E11.621 Type 2 diabetes mellitus with foot ulcer (principal); Z79.4 Long term (current) use of insulin; L97.518 Non-pressure chronic ulcer of other part of right foot with other specified severity | CPT/HCPCS: 87077; 87070; 87205 ==

== ENCOUNTER 2020-09-26 01:21 | Outpatient (CLI) | payer OTHER, MEDICAID, SELFPAY ==
--- NOTE | 2020-09-26 08:00 | DI.MRI_ITS ---
Exam(s) MR LOWER EXTREMITY RT WO/W EXAM: MR LOWER EXTREMITY RT WO/W CLINICAL HISTORY: DIABETIC FOOT ULCER,CHRONIC ULCER,? OSTEOMYELITIS OF HEEL TECHNIQUE: Multi with MRI scan of the area of concern in foot-ankle was performed on a 1.5 marcy uni t with both pre and post contrast infused sequences. Contrast use was Dotarem 20 cc Field of view of this study is ankle/heel/and midfoot. COMPARISON: CR XR FOOT RT COMPLETE from 09/05/2020 FINDINGS: SKIN/SUBCUTANEOUS TISSUES: There is no heel pad ulcer. There is some subcutaneous edema posteriorly. MARROW:There is no evidence of fracture nor bone contusion. There is no intraosseous signal abnormal ity to suggest osteomyelitis. There is no confluent hypointense intraosseous signal on non-fat T1 we ighted sequences (which is the most specific finding for osteomyelitis), and there is no evidence of abnormal high signal on fat sat water sensitive T2 and STIR sequences. There is also no abnormal int raosseous enhancement following contrast injection. No incidental significant osseous lesions. Deformity in the proximal 3rd of the 5th metatarsal bone is noted which has appearance of a healed fr acture site. ARTICULATIONS: no evidence of significant ankle or subtalar joint effusion. no evidence of para-maria luisa cular ganglion cyst. SINUS TARSI: No loss of normal fat signal. Interosseous ligament intact. There is no evidence of si nus tarsi ganglion cyst. PLANTAR HEEL FAT PAD: No abnormal signal nor enhancement. PLANTAR FASCIA: No abnormal signal, abnormal thickening, nor nodularity. LIGAMENTS: The anterior and posterior tibiofibular ligaments are intact. The anterior and posterior talofibular ligaments are intact. Calcaneofibular ligament intact. On the medial aspect of the ankl e the deltoid ligament appears intact. ACHILLES TENDON: Mild tendinitis signal. However, there is also some uniform enhancement in the subc utaneous fat posteriorly over the Achilles tendon region. There is a trace amount of fluid in the re trocalcaneal bursa. MEDIAL TENDONS: Tibialis posterior and flexor digitorum are intact. No tears or tenosynovitis. Flex or hallucis longus also intact. No tear or tenosynovitis. LATERAL TENDONS: Peroneus longus and brevis are intact. No evidence of tear nor tenosynovitis. IMPRESSION: 1. No evidence of osteomyelitis. 2. No evidence of fracture, bone contusion, joint effusions, nor para-articular ganglion cysts. 3. There is some subcutaneous enhancement posteriorly behind the Achilles tendon which is probably an element of cellulitis. There is also mild increased signal within the Achilles tendon itself consis tent with an element tendinitis. There is no evidence of Achilles tendon tear. DATA REPOSITORY:
[2020-09-26] MEDS: Normal Saline Flush 10 ML SYR IVP (15:11)
[2020-09-26] MEDS: Gadoterate meglumine 20 ML VIAL IVP (15:12)
== END 2020-09-26 01:41 ==
PROVIDERS: PCP Family Medicine; Visit Provider Family Medicine
DX: E11.621 Type 2 diabetes mellitus with foot ulcer (principal); L97.411 Non-pressure chronic ulcer of right heel and midfoot limited to breakdown of skin; M76.61 Achilles tendinitis, right leg
CPT/HCPCS: 73720

== ENCOUNTER → 2020-12-22 07:22 | Outpatient (BNVA) | payer OTHER, MEDICAID, SELFPAY | PROVIDERS: PCP Family Medicine; Referring Provider Family Medicine; Visit Provider Psychiatry & Neurology Neurology | DX: E08.42 Diabetes mellitus due to underlying condition with diabetic polyneuropathy (principal); G54.6 Phantom limb syndrome with pain; R20.0 Anesthesia of skin | CPT/HCPCS: 99213 ==

== ENCOUNTER 2021-01-07 15:12 | Observation (INO) | payer OTHER, MEDICAID, SELFPAY ==
[2021-01-07] VITALS (52 sets, daily range): BP systolic 63–198; BP diastolic 33–156; PULSE 80–120; RESP 15–90; TEMP 36.7–39.6; O2SAT 92–100
[2021-01-07] MEDS: Normal Saline 1,000 ML 1000 ML IV (15:45)
--- NOTE | 2021-01-07 16:00 | RT.EKG_ITS ---
APPROVED REPORT Exam: Resting ECG Reason for Exam: weakness Patient Location: E HR:84 bpm ECG Measurements Heart Rate 84 AXIS IL 165 P 59 QRSd 109 QRS -33 QT 361 T 85 QTc 427 Conclusion Sinus rhythm...normal P axis, V-rate 60- 99 Left axis deviation...QRS axis (-30,-90)
--- NOTE | 2021-01-07 16:15 | DI.RAD_ITS ---
Exam(s) XR CHEST 2V PA LATERAL EXAM: XR CHEST 2V PA LATERAL CLINICAL HISTORY: fever TECHNIQUE: 2D digital imaging was performed. COMPARISON: CR,XR XR PORTABLE CHEST AP from 07/09/2020 FINDINGS: The exam is somewhat limited by underpenetration and poor pulmonary inflation. Linear densities seen at the left lung base. No focal area of consolidation, effusion or pneumothorax is seen. IMPRESSION: No acute abnormality. DATA REPOSITORY: RADIATION DOSE DELIVERED:
[2021-01-07 16:26] LABS: Abs Immature Grans 0.11 10^3/uL (0.0-0.06); Absolute Basophil Count 0.03 10^3/uL (0.0-0.2); Absolute Eosinophil Count 0.02 10^3/uL (0.0-0.7); Absolute Lymphocyte Count 0.63 10^3/uL (1.2-3.4); Absolute Monocyte Count 0.48 10^3/uL (0.1-0.8); Absolute Neutrophil Count 9.02 10^3/uL (1.2-6.7); Basophils % 0.3; Eosinophils % 0.2; HCT 41.3 % (40.0-50.0); HGB 13.2 g/dL (13.5-17.5); Immature Grans % 1.1; Lymphocytes % 6.1; MCV 87.5 fL (80-95); MPV 9.7 fL (8.0-11.0); Monocytes % 4.7; Neutrophils % 87.6; Nucleated RBC 0 %; Platelet Count 188 10^3/uL (130-400); RBC 4.72 10^6/uL (4.36-5.78); RDW 13.2 % (11.8-14.1); RDW-SD 42.4 fL; WBC 10.29 10^3/uL (4.4-10.8)
[2021-01-07 16:28] LABS: BE (Venous) -2 mmol/L (-2-3); HCO3 (Venous) 24 mmol/L (23-28); O2 Sat (Venous) 78 %; TCO2 (Venous) 22 mmol/L (24-29); pCO2 (Venous) 43 mmHg (41-51); pH (Venous) 7.35 (7.31-7.41); pO2 (Venous) 44 mmHg
[2021-01-07] MEDS: Lactated Ringers 1,000 ML 1000 ML IV (16:30)
[2021-01-07 16:52] LABS: Source Nasal/Nares
[2021-01-07] MEDS: PIPERACILLIN/TAZO 4.5 GM in Normal Saline 100 ML IVPB (17:00)
[2021-01-07 17:36] LABS: Bilirubin Negative (Negative); Blood Trace-intact (Negative); Clarity Clear (Clear); Glucose Negative (Negative); Ketones Negative (Negative); Leukocyte Esterase Negative (Negative); Nitrite Negative (Negative); Urobilinogen 0.2 EU/dL (Up TO 0.2); pH 5.5 (5-8)
--- NOTE | 2021-01-07 17:38 | DI.VRAD_ITS ---
PROCEDURE INFORMATION: Exam: XR Chest Exam date and time: 01/07/2021 4:19 PM Age: 55 years old Clinical indication: Fever TECHNIQUE: Imaging protocol: XR of the chest. Views: 2 views. COMPARISON: CR XR PORTABLE CHEST AP 07/09/2020 4:15 PM FINDINGS: Lungs: Patchy linear opacities within the left pulmonary base may be compatible with atelectasis versus early pulmonary infiltrate. Pleural spaces: Unremarkable. No pleural effusion. No pneumothorax. Heart/Mediastinum: Unremarkable. No cardiomegaly. Bones/joints: Unremarkable. IMPRESSION: Patchy linear opacities within the left pulmonary base may be compatible with atelectasis versus early pulmonary infiltrate. Dictated and Authenticated by: Benjamín Pretty MD. Ordering:CARLEE De La Garza MD
[2021-01-07 17:40] LABS: ALT 47 U/L (16-63); AST 26 U/L (15-37); Albumin 2.8 g/dL (3.4-5.0); Alkaline Phosphatase 45 U/L (46-116); Anion Gap 8.1 mmol/L (3-11); BUN 19 mg/dL (7-18); Bilirubin, Total 0.5 mg/dL (0.2-1.0); CO2 23.9 mmol/L (21.0-32.0); CREATININE 1.6 mg/dL (0.70-1.30); Calcium 7.8 mg/dL (8.5-10.1); Chloride 104 mmol/L (98-107); Estimated GFR 44.94 (mL/min/1.73m2); Glucose 128 mg/dL (74-106); Potassium 4.3 mmol/L (3.5-5.1); Sodium 136 mmol/L (136-145); Total Protein 6.4 g/dL (6.4-8.2)
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
[2021-01-07 17:46] LABS: Troponin I < 0.05 ng/mL (<0.06)
[2021-01-07 17:48] LABS: Bacteria Negative HPF (Negative); C & S Indicated? No; Casts Negative LPF (Negative); Crystals Negative HPF (Negative); Epithelial Cells Few HPF (Negative); Mucus Negative (Negative); RBC 0-2 HPF (0-2); WBC 0-2 HPF (0-5)
[2021-01-07 17:56] LABS: Procalcitonin 0.4 ng/mL
[2021-01-07] MEDS: VANCOMYCIN 2,000 MG in Normal Saline 500 ML 250 MG IVPB (17:57)
[2021-01-07] MEDS: Lactated Ringers 1,000 ML 650 ML IV (17:57)
--- NOTE | 2021-01-07 18:08 | W.PM.HP.N ---
Date of service: 01/07/21 Time of Service: 18:08 Assessment and Plan Assessment and plan (1) Cellulitis of right ankle: Start date: 01/07/21 Status: Acute Assessment and plan: This is a 51-year-old gentleman with chronic poor mobility, obesity and poorly controlled diabetes with peripheral neuropathy presenting with fever and rigors as well as erythema and streaking up his right inner thigh with probable source of seeded infection in his ulcerations over his right heel and leg. He was placed on IV vancomycin and Zosyn in the ED after cultures were obtained. There is a question whether he has an infiltrate in his left lower lobe with antibiotic coverage covering this problem as well. He has no respiratory symptoms. He states that his right thigh feels better after initiating antibiotics. He will continue on antibiotic coverage until clinical improvement and then switch to oral antibiotic therapy. He is slightly dry with IV hydration in place. He also will have diabetes control while in the hospital with review of his outpatient treatment hopefully to improve glycemic control and sequela of diabetes. He is a full code. (2) MARGIE (acute kidney injury): Start date: 01/07/21 Status: Acute Assessment and plan: Patient does have elevated creatinine from baseline and increased lactate with IV hydration to continue overnight and follow-up lab in the morning. Convert to oral hydration once patient stabilizes. (3) Pneumonia: Start date: 01/07/21 Status: Acute Assessment and plan: Patient has questionable infiltrate left lower lobe which will be followed up clinically. Antibiotic coverage for cellulitis should cover this problem. Qualifiers: Laterality: left Lung location: lower lobe of lung Pneumonia type: due to unspecified organism Qualified Code(s): J18.9 - Pneumonia, unspecified organism (4) Type 2 diabetes mellitus: Status: Chronic Assessment and plan: Patient is usual of A. fib will be held during hospital stay with glucometer measurements and short acting insulin coverage. Patient hemoglobin A1c has been trending upward over the last year now over 7. His sequela indicate more of a long-term poor control over his lifetime. Qualifiers: Diabetes mellitus complication status: with other specified complication Diabetes mellitus terminologist insulin use: with senior living use Qualified Code(s): E11.69 - Type 2 diabetes mellitus with other specified complication; Z79.4 - intermediate frame tender (current) use of insulin History of Present Illness History of Present Illness Chief Complaint: Rigors and chills with fever at home Narrative: Is a 55-year-old male patient who presented to the ED with fever and rigors at home concerned about infection in his right leg. He had burned his heel with a heating pad 2 months prior to this and had an ulcer or burn which is slowly healing. He presented with pain and redness streaking up his inner thigh which happened repeatedly according to the patient. He states that usually when he gets infection it shows up in the inner thigh first. 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 He continues to have chronic venous stasis changes over his right leg with ulcerations opening over his leg as well. He states that the appears stable. He denies any drainage from the right heel ulcer. He does not follow his diabetic treatment at home closely and appears to be chronically uncontrolled with his sequela including neuropathy. Review of Systems Narrative: 13 point review of systems otherwise unrevealing or stable. Patient is obese and appears sedentary. Patient denies cough or respiratory symptoms. He denies any GI or symptoms on medicine for prostate issues. [facility] Medical History Arthritis (02/01/17) Back Bipolar affective disorder (02/01/17) [facility] BPH w urinary obs/LUTS Chronic toe pain, left foot (02/01/17) Diabetic foot ulcer Diabetic polyneuropathy associated with diabetes mellitus due to underlying condition (02/18/17) RX Gabapentin Diverticulitis of intestine (02/01/17) Gastroesophageal reflux disease without esophagitis (02/01/17) History of substance abuse (02/18/17) Multiple substances [address] [place] [address] Insomnia, unspecified (02/01/17) Mechanical dysphagia Phantom limb pain (02/01/17) LLE Type 2 diabetes mellitus Type 2 diabetes mellitus with complication, with long-term current use of insulin (02/01/17) Surgical History Amputation LLE BKA. RLE toe amputations. 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 hip R, ~2014 Family History Other Adopted Social History Smoking/Tobacco Use Status: Former Tobacco Use Smoking risk assessment performed?: Yes Alcohol Intake: former Drug use: Occasionally Substance use type: former substance user and marijuana Details: Marijuana for phantom limb pain Caregiver/Support person: No Household members: children Housing: house Number of Children: 8 Communication Needs: None Do you need help understanding health information?: Never current occupation: Disabled Pets and animals: No Sexually active: No Do you think of yourself as: straight/heterosexual Current gender identity: male What is your relationship status?: How often do you talk on the phone with friends or family?: once per week How often do you get together with friends or relatives?: once per week How often do you attend orthodox or episcopal services?: 4 or more times per year Panel score (0-1 are the most socially isolated patients): 1 NHANES result reviewed/action taken: No What type of physical activity do you participate in: none and walking Duration: < 15 minutes/day Frequency: 1-2 times per week Octavia/Anabaptist: Nondenominational Special octavia needs: No Seatbelt use: always Helmet use: Yes Helmet use: sometimes Drive intox 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 Working smoke detector in home: Yes Fire extinguisher in home: Yes Carbon monox detector in home: Yes Do you feel safe at home: Yes Do you feel safe in your relationship?: Yes Additional Social history: 8 children total Meds Allergies and Home Medications Allergies Allergy/AdvReac Type Severity Reaction Status Date / Time No Known Drug Allergies Allergy Verified 01/07/21 15:37 Home Medications Medication Instructions Recorded Confirmed Type tadalafil [Cialis] 5 mg PO daily prn #10 tab 03/25/17 01/07/21 Rx Prosthetic accessories #1 ea 08/29/18 01/07/21 Rx ibuprofen 600 mg PO TID PRN #30 tab 06/23/19 01/07/21 Rx Diabetic shoes #2 each 07/10/19 01/07/21 Rx blood sugar diagnostic #300 ea 06/17/20 01/07/21 Rx blood-glucose meter #1 ea 06/17/20 01/07/21 Rx lancets 33 gauge #300 ea 06/17/20 01/07/21 Rx pen needle, diabetic 32 gauge x #100 ea 06/24/20 01/07/21 Rx 5/32 acetaminophen 500 mg tablet 1,000 mg PO Q6H PRN PRN tab 08/30/20 01/07/21 History insulin aspart U-100 100 unit/mL See Rx Instructions SUB-Q AC #15 08/30/20 01/07/21 Rx (3 mL) subcutaneous pen ml MDD 54 units liraglutide 0.6 mg/0.1 mL (18 mg/3 1.2 mg SUBCUT DAILY #6 ml 10/07/20 01/07/21 Rx mL) subcutaneous pen injector lurasidone 40 mg tablet 40 mg PO DAILY #90 tab 10/20/20 01/07/21 Rx finasteride 5 mg tablet 5 mg PO DAILY #90 tab 12/06/20 01/07/21 Rx lisinopril 10 mg tablet 10 mg PO DAILY #90 tab-cap 12/06/20 01/07/21 Rx metformin 1,000 mg tablet 1,000 mg PO BID@0800,1700 #180 tab 12/06/20 01/07/21 Rx omeprazole 20 mg capsule,delayed 20 mg PO DAILY #90 tab-cap 12/06/20 01/07/21 Rx release tamsulosin 0.4 mg capsule 0.4 mg PO DAILY #90 cap 12/06/20 01/07/21 Rx gabapentin 600 mg tablet See Rx Instructions PO DIRECTED 12/22/20 01/07/21 Rx #450 tab MDD 3000 mg insulin detemir U-100 100 unit/mL 50 unit SUB-Q BID ml 12/22/20 01/07/21 History (3 mL) subcutaneous pen nortriptyline 50 mg capsule 50 mg PO QHS #90 cap 12/22/20 01/07/21 Rx trazodone 100 mg tablet 100 mg PO QHS #90 tab 12/22/20 01/07/21 Rx Exam Narrative Exam Narrative: General: Patient appears older than stated age, flattened affect with poor eye contact. Alert and oriented obese to person and place. He is in no acute distress. He has a slow monotonous tone to his voice. HEENT: Normocephalic, eyes with pupils equal and reactive light symmetrically, extraocular movement intact and sclera anicteric. Oral mucosa dry with dry lips. Neck: Supple without JVD. Back: Stooped posture without CVA tenderness. Lungs: Decreased aeration in bases with fair aeration, clear to all rotation with no focalized rales or rhonchi. Breast: Exam deferred. Heart: Regular rate and rhythm with no appreciable murmur gallop. Abdomen: Obese contour, soft nontender with no palpable hepatosplenomegaly. No guarding. Bowel sounds positive all quadrants. Genitalia/rectal: Exam deferred. Extremities: Left BKA with dry nonswollen stop. Right extremity with dry dressing over heel where patient has chronic ulcer. Erythema with slight increased warmth to touch over the anterior aspect of the right leg with dry ulcerations over the same area and a dry ulcer over the right medial knee area without erythema or swelling. Skin is slightly increased warm to touch over the anterior tibialis area. Peripheral pulses decreased with fair capillary refill. No clubbing or cyanosis. No pitting edema. Joints have decreased range of motion. Skin: Skin changes of the right leg as described with erythema and slight tenderness over the medial right thigh without induration. Otherwise normal color, warm and dry. Neuro: Cranial nerves II to XII grossly intact. No focalizing motor deficits. Decreased sensation over right lower extremity. Psych: Flattened affect and depressed mood. Increase somatic complaints. No abnormal thought processes. Remote and recent memory appear to be grossly intact. Results Imaging Imaging Studies: Exam: XR Right Ankle Exam date and time: 01/07/2021 5:51 PM Age: 55 years old Clinical indication: Pain; Ankle; Right TECHNIQUE: Imaging protocol: XR Right ankle. Views: 3 or more views. COMPARISON: MR LOWER EXTREMITY RT WO/W 09/26/2020 2:11 PM FINDINGS: Bones/joints: Normal. No degenerative changes. Soft tissues: Normal. IMPRESSION: No acute findings. Dictated and Authenticated by: Benjamín Pretty MD. Exam: XR Chest Exam date and time: 01/07/2021 4:19 PM Age: 55 years old Clinical indication: Fever TECHNIQUE: Imaging protocol: XR of the chest. Views: 2 views. COMPARISON: CR XR PORTABLE CHEST AP 07/09/2020 4:15 PM FINDINGS: Lungs: Patchy linear opacities within the left pulmonary base may be compatible with atelectasis versus early pulmonary infiltrate. Pleural spaces: Unremarkable. No pleural effusion. No pneumothorax. Heart/Mediastinum: Unremarkable. No cardiomegaly. Bones/joints: Unremarkable. IMPRESSION: Patchy linear opacities within the left pulmonary base may be compatible with atelectasis versus early pulmonary infiltrate. Dictated and Authenticated by: Benjamín Pretty MD. Labs Result diagrams: 01/08/21 07:45 01/08/21 07:45 Labs: Laboratory Results - last 24 hr 01/07/21 01/07/21 01/07/21 15:42 15:42 15:42 WBC 10.29 RBC 4.72 Hgb 13.2 L Hct 41.3 MCV 87.5 MCH 28.0 MCHC 32.0 RDW 13.2 Plt Count 188 MPV 9.7 Immature Gran % 1.1 Neutrophils % 87.6 Lymphocytes % 6.1 Monocytes % 4.7 Eosinophils % 0.2 Basophils % 0.3 Nucleated RBC % 0 Absolute Neutrophils 9.02 H Absolute Lymphocytes 0.63 L Absolute Monocytes 0.48 Absolute Eosinophils 0.02 Absolute Basophils 0.03 VBG pH 7.35 VBG pCO2 43 VBG pO2 44 VBG HCO3 24 VBG Total CO2 22 L VBG O2 Saturation 78 VBG Base Excess -2 VBG Lactate 2.0 H Sodium Potassium Chloride Carbon Dioxide Anion Gap BUN Creatinine Estimated GFR/1.73 m2 Glucose Calcium Total Bilirubin AST ALT Alkaline Phosphatase Troponin I Total Protein Albumin Procalcitonin Urine Color Urine Clarity Urine pH Ur Specific [place] Urine Protein Urine Ketones Urine Blood Urine Nitrite Urine Bilirubin Urine Urobilinogen Ur Leukocyte Esterase Urine RBC Urine WBC Ur Epithelial Cells Urine Crystals Urine Bacteria Urine Casts Urine Mucus Ur Culture Indicated? Urine Glucose COVID-19 Source 01/07/21 01/07/21 01/07/21 16:08 16:50 17:20 WBC RBC Hgb Hct MCV MCH MCHC RDW Plt Count MPV Immature Gran % Neutrophils % Lymphocytes % Monocytes % Eosinophils % Basophils % Nucleated RBC % Absolute Neutrophils Absolute Lymphocytes Absolute Monocytes Absolute Eosinophils Absolute Basophils VBG pH VBG pCO2 VBG pO2 VBG HCO3 VBG Total CO2 VBG O2 Saturation VBG Base Excess VBG Lactate Sodium Cancelled 136 Potassium Cancelled 4.3 Chloride Cancelled 104 Carbon Dioxide Cancelled 23.9 Anion Gap Cancelled 8.1 BUN Cancelled 19 H Creatinine Cancelled 1.6 H Estimated GFR/1.73 m2 Cancelled 44.94 Glucose Cancelled 128 H Calcium Cancelled 7.8 L Total Bilirubin Cancelled 0.5 AST Cancelled 26 ALT Cancelled 47 Alkaline Phosphatase Cancelled 45 L Troponin I Total Protein Cancelled 6.4 Albumin Cancelled 2.8 L Procalcitonin Urine Color Urine Clarity Urine pH Ur Specific [place] Urine Protein Urine Ketones Urine Blood Urine Nitrite Urine Bilirubin Urine Urobilinogen Ur Leukocyte Esterase Urine RBC Urine WBC Ur Epithelial Cells Urine Crystals Urine Bacteria Urine Casts Urine Mucus Ur Culture Indicated? Urine Glucose COVID-19 Source Nasal/Nares 01/07/21 01/07/21 01/07/21 17:20 17:20 17:25 WBC RBC Hgb Hct MCV MCH MCHC RDW Plt Count MPV Immature Gran % Neutrophils % Lymphocytes % Monocytes % Eosinophils % Basophils % Nucleated RBC % Absolute Neutrophils Absolute Lymphocytes Absolute Monocytes Absolute Eosinophils Absolute Basophils VBG pH VBG pCO2 VBG pO2 VBG HCO3 VBG Total CO2 VBG O2 Saturation VBG Base Excess VBG Lactate Sodium Potassium Chloride Carbon Dioxide Anion Gap BUN Creatinine Estimated GFR/1.73 m2 Glucose Calcium Total Bilirubin AST ALT Alkaline Phosphatase Troponin I < 0.05 Total Protein Albumin Procalcitonin 0.4 Urine Color Yellow Urine Clarity Clear Urine pH 5.5 Ur Specific [place] 1.020 Urine Protein Negative Urine Ketones Negative Urine Blood Trace-intact H Urine Nitrite Negative Urine Bilirubin Negative Urine Urobilinogen 0.2 Ur Leukocyte Esterase Negative Urine RBC 0-2 Urine WBC 0-2 Ur Epithelial Cells Few Urine Crystals Negative Urine Bacteria Negative Urine Casts Negative Urine Mucus Negative Ur Culture Indicated? No Urine Glucose Negative COVID-19 Source Last Vital Signs Temp 37.2 C 01/07/21 15:30 Pulse 83 01/07/21 16:46 Resp 18 01/07/21 16:50 BP 101/52 L 01/07/21 16:46 Pulse Ox 100 01/07/21 16:50
--- NOTE | 2021-01-07 18:18 | DI.VRAD_ITS ---
PROCEDURE INFORMATION: Exam: XR Right Ankle Exam date and time: 01/07/2021 5:51 PM Age: 55 years old Clinical indication: Pain; Ankle; Right TECHNIQUE: Imaging protocol: XR Right ankle. Views: 3 or more views. COMPARISON: MR LOWER EXTREMITY RT WO/W 09/26/2020 2:11 PM FINDINGS: Bones/joints: Normal. No degenerative changes. Soft tissues: Normal. IMPRESSION: No acute findings. Dictated and Authenticated by: Benjamín Pretty MD. Ordering:CARLEE De La Garza MD
[2021-01-07 18:43] LABS: Magnesium 1.5 mg/dL (1.8-2.4)
[2021-01-07 19:35] LABS: COVID-19 PCR Negative (Negative)
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
[2021-01-07] MEDS: PIPERACILLIN/TAZO 3.375 GM in Normal Saline 50 ML IVPB (21:52)
[2021-01-07] MEDS: Heparin 5,000 UNITS/ML VIAL 5000 UNITS SC (21:57)
[2021-01-07] MEDS: traZODone 100 MG TAB PO (21:58)
[2021-01-07] MEDS: Normal Saline Flush 10 ML SYR IVP (21:58)
[2021-01-07] MEDS: Normal Saline 1,000 ML 150 ML IV (22:01)
[2021-01-08 00:56] VITALS: TEMP 39.5
[2021-01-08] MEDS: Acetaminophen 325 MG TAB 650 MG PO (00:56)
[2021-01-08 01:40] VITALS: TEMP 38.8
[2021-01-08 01:56] VITALS: BP 110/64; PULSE 90; RESP 16; TEMP 36.8; O2SAT 93
[2021-01-08] MEDS: VANCOMYCIN 1,500 MG in Normal Saline 250 ML 166.667 MG IVPB (03:41)
[2021-01-08] MEDS: Normal Saline Flush 10 ML SYR IVP ×3 (03:48→07:46)
[2021-01-08 03:55] VITALS: BP 110/64; PULSE 90; RESP 16; TEMP 36.8; O2SAT 93
[2021-01-08] MEDS: PIPERACILLIN/TAZO 3.375 GM in Normal Saline 50 ML IVPB ×2 (04:55→10:15)
[2021-01-08] MEDS: Normal Saline 500 ML 30 ML IV (04:56)
[2021-01-08] MEDS: Heparin 5,000 UNITS/ML VIAL 5000 UNITS SC (05:37)
[2021-01-08] MEDS: Normal Saline 1,000 ML 150 ML IV (06:45)
[2021-01-08 07:31] LABS: Lactate 1.3 mmol/L (0.6-1.4)
[2021-01-08] MEDS: Finasteride 5 MG TAB PO (07:46)
[2021-01-08] MEDS: Lurasidone 40 MG TAB PO (07:46)
[2021-01-08] MEDS: Tamsulosin 0.4 MG CAPCR PO (07:46)
[2021-01-08] MEDS: Gabapentin 600 MG TAB 1200 MG PO (07:46)
[2021-01-08 07:51] VITALS: BP 142/88; PULSE 87; RESP 17; TEMP 37; O2SAT 96
[2021-01-08] MEDS: Pantoprazole 40 MG VIAL IVP (07:58)
[2021-01-08 08:09] LABS: Abs Immature Grans 0.08 10^3/uL (0.0-0.06); Absolute Basophil Count 0.05 10^3/uL (0.0-0.2); Absolute Eosinophil Count 0.04 10^3/uL (0.0-0.7); Absolute Monocyte Count 0.48 10^3/uL (0.1-0.8); Absolute Neutrophil Count 5.43 10^3/uL (1.2-6.7); Basophils % 0.7; Eosinophils % 0.6; HCT 38.1 % (40.0-50.0); HGB 12.3 g/dL (13.5-17.5); Immature Grans % 1.1; Lymphocytes % 15.3; MCH 27.8 pg (27.0-33.0); MCHC 32.3 % (32.0-36.0); MPV 9.5 fL (8.0-11.0); Monocytes % 6.7; Neutrophils % 75.6; Nucleated RBC 0 %; Platelet Count 146 10^3/uL (130-400); RBC 4.43 10^6/uL (4.36-5.78); RDW 13.3 % (11.8-14.1); RDW-SD 41.6 fL; WBC 7.18 10^3/uL (4.4-10.8)
[2021-01-08 08:14] LABS: ALT 42 U/L (16-63); AST 26 U/L (15-37); Albumin 2.9 g/dL (3.4-5.0); Alkaline Phosphatase 47 U/L (46-116); Anion Gap 8.3 mmol/L (3-11); BUN 14 mg/dL (7-18); Bilirubin, Total 0.6 mg/dL (0.2-1.0); CO2 23.7 mmol/L (21.0-32.0); CREATININE 1.2 mg/dL (0.70-1.30); Calcium 8.4 mg/dL (8.5-10.1); Chloride 106 mmol/L (98-107); Glucose 128 mg/dL (74-106); Potassium 4.1 mmol/L (3.5-5.1); Sodium 138 mmol/L (136-145)
[2021-01-08] MEDS: Lisinopril 10 MG TAB PO (09:15)
--- NOTE | 2021-01-08 09:19 | PDOC.CMIN ---
- If Service Date Differs Date of service: 01/08/21 Time of Service: 09:19 Care Management Initial Assess REASON FOR HOSPITALIZATION:: cellulitis of right ankle PAST MEDICAL HISTORY/PAST SURGICAL HISTORY:: Medical History . Arthritis (02/01/17). Back. Bipolar affective disorder (02/01/17). NKHS. BPH w urinary obs/LUTS. Chronic toe pain, left foot (02/01/17). Diabetic foot ulcer. Diabetic polyneuropathy associated with diabetes mellitus due to underlying condition (02/18/17). RX Gabapentin. Diverticulitis of intestine (02/01/17). Gastroesophageal reflux disease without esophagitis (02/01/17). History of substance abuse (02/18/17). Multiple substances. 1980s, [place]. Insomnia, unspecified (02/01/17). Mechanical dysphagia. Phantom limb pain (02/01/17). LLE. Type 2 diabetes mellitus. Type 2 diabetes mellitus with complication, with long-term current use of insulin (02/01/17). Surgical History . Amputation. LLE BKA. RLE toe amputations. Amputation of left lower extremity (02/18/17). BKA; wears prosthetic. Colectomy (~2002). Hernia repair (~1999). History of carpal tunnel release. Right. History of partial amputation of toe of right foot. Total replacement of hip. R, ~2014 PREVIOUS FUNCTIONAL STATUS/SOCIAL/FAMILY SUPPORTS:: Jimmie is a 55 year old male who resides in [facility] with four of his eight daughters. He reports he has been on disability since 1998. His left leg was amputated below the knee in 2017 and he now has a prosthesis. Jimmie states his daughters are supportive of him and help him perform his ADLs as needed. He is also a member of the [employer] [facility] and they are a source of support for him and his family. CURRENT FUNCTIONAL STATUS:: Jimmie was lying in bed when CM met with him. He informed that he would be leaving today, AMA if necessary. He shared that he has 4 teenage daughters at home, ages 13-17, without adult supervision and that he needs to be there. He also stated that he has had this before and that his PCP can order medication for him over the pphone. ADVANCE DIRECTIVES:: none on file Has patient been provided with info about the portal/API?: Yes Did the patient sign up for the portal?: No CODE STATUS:: Full Code INSURANCE COVERAGE / FINANCIAL ISSUES:: [facility] [employer] [facility] [place]. Medicaid CURRENT HOME/COMMUNITY SERVICES/EQUIPMENT:: Jimmie has a prosthesis, shower chair and a commode. He uses [facility] for transportation and receives Meals on Wheels. PRIMARY CARE PHYSICIAN:: Zeeshan Singh, DO POTENTIAL DISCHARGE NEEDS:: Follow up with PCP and plan of care PATIENT/FAMILY EDUCATION NEEDS:: Review of discharge instructions, medications, activity, limitations, Ask Me Three TRANSPORTATION:: via private vehicle with family PLAN:: Jimmie decided to sign out against medical advice to return to his 4 daughters. he will follow up with his PCPwill likely be discharged home with no new services. He will follow up with his PCP and plan of care and transport with family.
[2021-01-08 11:46] VITALS: BP 124/75; PULSE 93; RESP 17; TEMP 37; O2SAT 95
[2021-01-08] MEDS: MAGNESIUM SULFATE 4 GM/100 ML BAG IVPB (12:22)
[2021-01-08] MEDS: Gabapentin 600 MG TAB PO (12:23)
[2021-01-08] MEDS: Insulin Aspart 300 UNITS/3 ML PEN SC (12:32)
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
--- NOTE | 2021-01-08 14:48 | W.PM.DS.N ---
Date of service: 01/08/21 Time of Service: 14:48 DS: Diagnosis Discharge Diagnosis (1) Cellulitis of right ankle: Status: Acute (2) MARGIE (acute kidney injury): Status: Acute (3) Pneumonia: Status: Acute (4) Type 2 diabetes mellitus: Status: Chronic Discharge Plan Disposition Patient Disposition: AGAINST MEDICAL ADVICE Condition: Serious Discharge Details Reason For Visit: Cellulitis, MARGIE with dehydration Type 2 DM Admit Date/Time: 01/07/21 18:15 Admit Provider: Parth Johns Attending Provider: Parth Johns Primary Care Provider: Zeeshan Singh [facility] Course Hospital Course: patient did not want to stay, he has 4 teenagers at home. He decided to leave AMA, despite knowing possible dangers of leaving. Home Meds and New Rx's Prescriptions: No Action (DME) Prosthetic accessories Qty: 1 RF: 0 Levemir FlexTouch U-100 Insuln 100 unit/mL (3 mL) insulin pen 50 unit Sub-Q BID RF: 0 gabapentin 600 mg tablet See Rx Instructions PO DIRECTED MDD 3000 mg Qty: 450 RF: 3 nortriptyline 50 mg capsule 50 mg PO QHS Qty: 90 RF: 3 trazodone 100 mg tablet 100 mg PO QHS Qty: 90 RF: 3 acetaminophen 500 mg tablet 1,000 mg PO Q6H PRN PRN (Reason: pain) RF: 0 insulin aspart U-100 [Novolog Flexpen U-100 Insulin] 100 unit/mL (3 mL) insulin pen See Rx Instructions Sub-Q AC MDD 54 units Qty: 15 RF: 12 (DME) Diabetic shoes Qty: 2 RF: 0 tadalafil [Cialis] 5 MG tablet 5 mg PO daily prn Qty: 10 RF: 0 (DME) blood-glucose meter [OneTouch Verio Flex meter] Misc See Rx Instructions .ROUTE .MEDSUPPLY Qty: 1 RF: 0 (DME) lancets [OneTouch Delica Plus Lancet] 33 gauge misc See Rx Instructions .ROUTE .MEDSUPPLY Qty: 300 RF: 11 (DME) OneTouch Verio test strips Strip See Rx Instructions .ROUTE .MEDSUPPLY Qty: 300 RF: 3 (DME) pen needle, diabetic [BD Ultra-Fine Paige Pen Needle] 32 gauge x 5/32 needle 1 ea Miscellaneous 5X/DAY Qty: 100 RF: 11 Victoza 2-Benjamín 0.6 mg/0.1 mL (18 mg/3 mL) pen injector 1.2 mg subcut DAILY Qty: 6 RF: 3 Latuda 40 mg tablet 40 mg PO DAILY Qty: 90 RF: 3 finasteride 5 mg tablet 5 mg PO DAILY Qty: 90 RF: 0 lisinopril 10 mg tablet 10 mg PO DAILY Qty: 90 RF: 0 metformin 1,000 mg tablet 1,000 mg PO BID@0800,1700 Qty: 180 RF: 0 omeprazole 20 mg capsule,delayed release(DR/EC) 20 mg PO DAILY Qty: 90 RF: 0 tamsulosin [Flomax] 0.4 mg capsule 0.4 mg PO DAILY Qty: 90 RF: 0 ibuprofen 600 mg tablet 600 mg PO TID PRNQty: 30 RF: 3 Discharge Data Discharge Date/Time-TO BE ENTERED AT DEPARTURE: 01/08/21 13:51 DS: Summary Time Spent with Patient providing and/or coordinating discharge services: Less than 30 minutes Status at Discharge Functional status at discharge: independent ambulation Overall status at discharge: patient is not back to baseline Mental Status: mental status grossly normal Speech and Movement: speech and movement normal Mood: congruent mood Affect: normal affect Exam Psych Mental Status: mental status grossly normal Speech and Movement: speech and movement normal Mood: congruent mood Affect: normal affect DS: Data Vitals/I&O Vitals and I&O: Vital Signs Temperature 37.0 C 01/08/21 11:46 Temperature Source Temporal Artery Scan 01/08/21 11:46 Pulse 93 H 01/08/21 11:46 Pulse Rhythm Regular 01/08/21 09:00 Pulse 108 H 01/07/21 20:00 Respiratory Rate 17 01/08/21 11:46 Respiratory Effort Non-Labored 01/08/21 09:00 Respiratory Depth Normal 01/08/21 09:00 Respiratory Pattern Normal 01/08/21 09:00 Blood Pressure 124/75 01/08/21 11:46 Blood Pressure Mean 161 01/07/21 20:00 Blood Pressure Position Supine 01/07/21 15:30 Pulse Oximetry 95 01/08/21 11:46 Oxygen Delivery Method Room Air 01/08/21 11:46 Oxygen Flow Rate 0 01/08/21 11:46 Pain Level 0 01/08/21 11:46 Comment 01/08/21 03:55 Intake & Output 01/07/21 01/08/21 01/08/21 23:59 11:59 23:59 Intake Total 2570 / 2570 1250 / 1250 Output Total 1275 / 1275 Balance 2570 / 2570 -25 / -25 Weight 104.8 kg 104.8 kg Intake: IV 2570 / 2570 1050 / 1050 Oral 200 / 200 Output: Urine 1275 / 1275 Other: Urine Color Yellow Yellow Straw Urine Appearance Clear Clear Urine Odor None Comment Large amount of urine. Provided partial sponse bath to patient. Changed gown and bed linens, applied XL size diaper. Voiding Methods Urinal Urinal Data Completed and Pending Labs on day of discharge: Labs from last 24 hours 01/08/21 01/08/21 01/08/21 14:00 07:45 07:45 WBC 7.18 D RBC 4.43 Hgb 12.3 L Hct 38.1 L MCV 86.0 MCH 27.8 MCHC 32.3 RDW 13.3 Plt Count 146 MPV 9.5 Immature Gran % 1.1 Neutrophils % 75.6 Lymphocytes % 15.3 Monocytes % 6.7 Eosinophils % 0.6 Basophils % 0.7 Nucleated RBC % 0 Absolute Neutrophils 5.43 Absolute Lymphocytes 1.10 L Absolute Monocytes 0.48 Absolute Eosinophils 0.04 Absolute Basophils 0.05 VBG pH VBG pCO2 VBG pO2 VBG HCO3 VBG Total CO2 VBG O2 Saturation VBG Base Excess VBG Lactate Sodium 138 Potassium 4.1 Chloride 106 Carbon Dioxide 23.7 Anion Gap 8.3 BUN 14 Creatinine 1.2 Estimated GFR/1.73 m2 >= 60.00 Glucose 128 H Calcium 8.4 L Magnesium Total Bilirubin 0.6 AST 26 ALT 42 Alkaline Phosphatase 47 Troponin I Total Protein 7.0 Albumin 2.9 L Procalcitonin Urine Color Urine Clarity Urine pH Ur Specific [place] Urine Protein Urine Ketones Urine Blood Urine Nitrite Urine Bilirubin Urine Urobilinogen Ur Leukocyte Esterase Urine RBC Urine WBC Ur Epithelial Cells Urine Crystals Urine Bacteria Urine Casts Urine Mucus Ur Culture Indicated? Urine Glucose Vancomycin Trough Cancelled COVID-19 Source SARS-CoV-2 (PCR) 01/08/21 01/07/21 01/07/21 07:27 17:25 17:20 WBC RBC Hgb Hct MCV MCH MCHC RDW Plt Count MPV Immature Gran % Neutrophils % Lymphocytes % Monocytes % Eosinophils % Basophils % Nucleated RBC % Absolute Neutrophils Absolute Lymphocytes Absolute Monocytes Absolute Eosinophils Absolute Basophils VBG pH VBG pCO2 VBG pO2 VBG HCO3 VBG Total CO2 VBG O2 Saturation VBG Base Excess VBG Lactate 1.3 Sodium Potassium Chloride Carbon Dioxide Anion Gap BUN Creatinine Estimated GFR/1.73 m2 Glucose Calcium Magnesium 1.5 L Total Bilirubin AST ALT Alkaline Phosphatase Troponin I Total Protein Albumin Procalcitonin Urine Color Yellow Urine Clarity Clear Urine pH 5.5 Ur Specific [place] 1.020 Urine Protein Negative Urine Ketones Negative Urine Blood Trace-intact H Urine Nitrite Negative Urine Bilirubin Negative Urine Urobilinogen 0.2 Ur Leukocyte Esterase Negative Urine RBC 0-2 Urine WBC 0-2 Ur Epithelial Cells Few Urine Crystals Negative Urine Bacteria Negative Urine Casts Negative Urine Mucus Negative Ur Culture Indicated? No Urine Glucose Negative Vancomycin Trough COVID-19 Source SARS-CoV-2 (PCR) 01/07/21 01/07/21 01/07/21 17:20 17:20 17:20 WBC RBC Hgb Hct MCV MCH MCHC RDW Plt Count MPV Immature Gran % Neutrophils % Lymphocytes % Monocytes % Eosinophils % Basophils % Nucleated RBC % Absolute Neutrophils Absolute Lymphocytes Absolute Monocytes Absolute Eosinophils Absolute Basophils VBG pH VBG pCO2 VBG pO2 VBG HCO3 VBG Total CO2 VBG O2 Saturation VBG Base Excess VBG Lactate Sodium 136 Potassium 4.3 Chloride 104 Carbon Dioxide 23.9 Anion Gap 8.1 BUN 19 H Creatinine 1.6 H Estimated GFR/1.73 m2 44.94 Glucose 128 H Calcium 7.8 L Magnesium Total Bilirubin 0.5 AST 26 ALT 47 Alkaline Phosphatase 45 L Troponin I < 0.05 Total Protein 6.4 Albumin 2.8 L Procalcitonin 0.4 Urine Color Urine Clarity Urine pH Ur Specific [place] Urine Protein Urine Ketones Urine Blood Urine Nitrite Urine Bilirubin Urine Urobilinogen Ur Leukocyte Esterase Urine RBC Urine WBC Ur Epithelial Cells Urine Crystals Urine Bacteria Urine Casts Urine Mucus Ur Culture Indicated? Urine Glucose Vancomycin Trough COVID-19 Source SARS-CoV-2 (PCR) 01/07/21 01/07/21 01/07/21 16:50 16:08 15:42 WBC RBC Hgb Hct MCV MCH MCHC RDW Plt Count MPV Immature Gran % Neutrophils % Lymphocytes % Monocytes % Eosinophils % Basophils % Nucleated RBC % Absolute Neutrophils Absolute Lymphocytes Absolute Monocytes Absolute Eosinophils Absolute Basophils VBG pH VBG pCO2 VBG pO2 VBG HCO3 VBG Total CO2 VBG O2 Saturation VBG Base Excess VBG Lactate Sodium Cancelled Potassium Cancelled Chloride Cancelled Carbon Dioxide Cancelled Anion Gap Cancelled BUN Cancelled Creatinine Cancelled Estimated GFR/1.73 m2 Cancelled Glucose Cancelled Calcium Cancelled Magnesium Total Bilirubin Cancelled AST Cancelled ALT Cancelled Alkaline Phosphatase Cancelled Troponin I Cancelled Total Protein Cancelled Albumin Cancelled Procalcitonin Urine Color Urine Clarity Urine pH Ur Specific [place] Urine Protein Urine Ketones Urine Blood Urine Nitrite Urine Bilirubin Urine Urobilinogen Ur Leukocyte Esterase Urine RBC Urine WBC Ur Epithelial Cells Urine Crystals Urine Bacteria Urine Casts Urine Mucus Ur Culture Indicated? Urine Glucose Vancomycin Trough COVID-19 Source Nasal/Nares SARS-CoV-2 (PCR) Negative 01/07/21 01/07/21 01/07/21 15:42 15:42 15:42 WBC 10.29 RBC 4.72 Hgb 13.2 L Hct 41.3 MCV 87.5 MCH 28.0 MCHC 32.0 RDW 13.2 Plt Count 188 MPV 9.7 Immature Gran % 1.1 Neutrophils % 87.6 Lymphocytes % 6.1 Monocytes % 4.7 Eosinophils % 0.2 Basophils % 0.3 Nucleated RBC % 0 Absolute Neutrophils 9.02 H Absolute Lymphocytes 0.63 L Absolute Monocytes 0.48 Absolute Eosinophils 0.02 Absolute Basophils 0.03 VBG pH 7.35 VBG pCO2 43 VBG pO2 44 VBG HCO3 24 VBG Total CO2 22 L VBG O2 Saturation 78 VBG Base Excess -2 VBG Lactate 2.0 H Sodium Potassium Chloride Carbon Dioxide Anion Gap BUN Creatinine Estimated GFR/1.73 m2 Glucose Calcium Magnesium Total Bilirubin AST ALT Alkaline Phosphatase Troponin I Total Protein Albumin Procalcitonin Urine Color Urine Clarity Urine pH Ur Specific [place] Urine Protein Urine Ketones Urine Blood Urine Nitrite Urine Bilirubin Urine Urobilinogen Ur Leukocyte Esterase Urine RBC Urine WBC Ur Epithelial Cells Urine Crystals Urine Bacteria Urine Casts Urine Mucus Ur Culture Indicated? Urine Glucose Vancomycin Trough COVID-19 Source SARS-CoV-2 (PCR) 01/08/21 12:06 Nose MRSA Screen - Pending 01/08/21 09:56 Ankle - Right Skin Culture - Pending 01/07/21 15:42 Blood Blood Culture - Pending 01/07/21 15:36 Blood Blood Culture - Pending Preliminary micro results at discharge 01/08/21 12:06 MRSA Screen - Pending Nose 01/08/21 09:56 Skin Culture - Pending Ankle - Right 01/07/21 15:42 Blood Culture - Pending Blood 01/07/21 15:36 Blood Culture - Pending Blood [facility] Medical History Arthritis (02/01/17) Back Bipolar affective disorder (02/01/17) HS BPH w urinary obs/LUTS Chronic toe pain, left foot (02/01/17) Diabetic foot ulcer Diabetic polyneuropathy associated with diabetes mellitus due to underlying condition (02/18/17) RX Gabapentin Diverticulitis of intestine (02/01/17) Gastroesophageal reflux disease without esophagitis (02/01/17) History of substance abuse (02/18/17) Multiple substances [facility], [place], [place] Insomnia, unspecified (02/01/17) Mechanical dysphagia Phantom limb pain (02/01/17) LLE Type 2 diabetes mellitus Type 2 diabetes mellitus with complication, with long-term current use of insulin (02/01/17) Surgical History Amputation LLE BKA. RLE toe amputations. 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 hip R, ~2014 Family History Other Adopted Social History Smoking/Tobacco Use Status: Former Tobacco Use Smoking risk assessment performed?: Yes Alcohol Intake: former Drug use: Occasionally Substance use type: former substance user and marijuana Details: Marijuana for phantom limb pain Caregiver/Support person: No Household members: children Housing: house Number of Children: 8 Communication Needs: None Do you need help understanding health information?: Never current occupation: Disabled Pets and animals: No Sexually active: No Do you think of yourself as: straight/heterosexual Current gender identity: male What is your relationship status?: How often do you talk on the phone with friends or family?: once per week How often do you get together with friends or relatives?: once per week How often do you attend yarsanism or jainism services?: 4 or more times per year Panel score (0-1 are the most socially isolated patients): 1 NHANES result reviewed/action taken: No What type of physical activity do you participate in: none and walking Duration: < 15 minutes/day Frequency: 1-2 times per week Octavia/Sabianism: Rossana Special octavia needs: No Seatbelt use: always Helmet use: Yes Helmet use: sometimes Drive intox or ride w/intox non emergency services ambulance driver: No Working smoke detector in home: Yes Fire extinguisher in home: Yes Carbon monox detector in home: Yes Do you feel safe at home: Yes Do you feel safe in your relationship?: Yes Additional Social history: 8 children total
--- NOTE | 2021-01-08 15:30 | PDOC.CMDIS ---
- If Service Date Differs Date of service: 01/08/21 Time of Service: 15:30 LACE Index Scoring Tool - Questions: Length of Stay (in days): 1 Acuity (Admit via E.D.?): Yes Comorbidities: Diabetes w/o Complication E.D. Visits: 3 - Answers: Total Score: 8 Risk of Readmission: Low Risk Care Management Discharge Reason for Hospitalization: cellulitis of right ankle Discharge Plan: Jimmie decided to leave against medical advice. He has 4 teenage daughters at home that are unsupervised. He will follow up with his community providers and transport with his daughter. Patient/Family Education Needs: Review of discharge instructions, medications, activity, limitations, Ask Me Three
--- NOTE | 2021-01-08 16:47 | NUR.NOTE ---
Nursing Note: Discussed the risks of leaving against medical advice with the patient, including worsening infection, fever , and other possible complications. Patient said he had young kids at home and needed to be there for his family. He is advised to return to the ED should symptoms reappear or worsen. Patient signed the form and left
== END 2021-01-08 13:51 | disposition left against medical advice (07) | DRG 602 ==
LOC: ER 20:19 → MS 20:34
PROVIDERS: Physician Assistant; Admitting Provider Family Medicine; Emergency Provider Physician Assistant; PCP Family Medicine; Visit Provider Family Medicine
DX: L03.115 Cellulitis of right lower limb (principal); J18.9 Pneumonia, unspecified organism; T25.321A Burn of third degree of right foot, initial encounter; N17.9 Acute kidney failure, unspecified; L97.819 Non-pressure chronic ulcer of other part of right lower leg with unspecified severity; E11.65 Type 2 diabetes mellitus with hyperglycemia; E11.42 Type 2 diabetes mellitus with diabetic polyneuropathy; Z79.4 Long term (current) use of insulin; Z89.512 Acquired absence of left leg below knee; I87.2 Venous insufficiency (chronic) (peripheral); F31.9 Bipolar disorder, unspecified; N40.1 Benign prostatic hyperplasia with lower urinary tract symptoms; K21.9 Gastro-esophageal reflux disease without esophagitis; G47.00 Insomnia, unspecified; Z20.822 Contact with and (suspected) exposure to COVID-19; E11.69 Type 2 diabetes mellitus with other specified complication; X16.XXXA Contact with hot heating appliances, radiators and pipes, initial encounter
CPT/HCPCS: 36415; 80053; 82805; 84145; 87040; 87081; 87635; 93005; 96361; 96365; 96366; 99291; 71046; 73610; 80202; 81003; 81015; 83605; 83735; 84484; 85025; 87070; 93010; 99223; 99238; G0378; J1644; J2543; J3475; J3490

== ENCOUNTER → 2021-06-22 07:05 | Outpatient (BNVA) | payer OTHER, MEDICAID, SELFPAY | PROVIDERS: PCP Family Medicine; Visit Provider Psychiatry & Neurology Neurology | DX: E11.9 Type 2 diabetes mellitus without complications (principal); R20.0 Anesthesia of skin; G54.6 Phantom limb syndrome with pain; G62.9 Polyneuropathy, unspecified | CPT/HCPCS: 99213 ==

== ENCOUNTER → 2022-03-06 11:09 | Outpatient (BNVA) | payer OTHER, MEDICAID, SELFPAY | PROVIDERS: PCP Family Medicine; Referring Provider Family Medicine; Visit Provider Psychiatry & Neurology Neurology | DX: E11.42 Type 2 diabetes mellitus with diabetic polyneuropathy (principal); Z79.4 Long term (current) use of insulin; G54.6 Phantom limb syndrome with pain | CPT/HCPCS: 99214 ==

== ENCOUNTER → 2022-09-06 10:20 | Outpatient (BNVA) | payer OTHER, MEDICAID, SELFPAY | PROVIDERS: PCP Family Medicine; Referring Provider Family Medicine; Visit Provider Physical Therapy Assistant | DX: Z12.11 Encounter for screening for malignant neoplasm of colon (principal) ==

== ENCOUNTER 2022-09-24 05:58 | Day surgery (SDC) | payer OTHER, MEDICAID, SELFPAY ==
[2022-09-24 06:15] VITALS: BP 136/93; PULSE 92; RESP 18; TEMP 36.3; O2SAT 97
[2022-09-24] MEDS: Lactated Ringers 1,000 ML 80 ML IV (06:53)
--- NOTE | 2022-09-24 06:54 | ANES.PREOP_ITS ---
General Info Date of Service Date Performed: 09/24/22 Height: 6 ft 3 in Weight: 94.1 kg Body Mass Index (BMI): 25.9 Surgical Procedure: Operation Date: 09/24/22 07:35 Proposed Procedure Side Surgeon p Colonoscopy Onur Marx MD Actual Procedure Side Surgeon p Colonoscopy Not Applicable Onur Marx MD Meds Allergies and Home Medications Allergies Allergy/AdvReac Type Severity Reaction Status Date / Time No Known Drug Allergies Allergy Verified 09/24/22 06:28 Home Medication Medication Instructions Recorded tadalafil 5 mg tablet (Cialis) 5 mg PO daily prn #10 tabs 03/25/17 Prosthetic accessories #1 ea 08/29/18 ibuprofen 600 mg tablet 600 mg PO TID PRN #30 tabs 06/23/19 Diabetic shoes #2 ea 07/10/19 blood sugar diagnostic (OneTouch #300 ea 06/17/20 Verio test strips) blood-glucose meter (OneTouch #1 ea 06/17/20 Verio Flex Meter) lancets 33 gauge (OneTouch Delica #300 ea 06/17/20 Plus Lancet) acetaminophen 500 mg tablet 1,000 mg PO Q6H PRN PRN pain 08/30/20 insulin aspart U-100 100 unit/mL See Rx Instructions subcut AC #15 09/27/21 (3 mL) subcutaneous pen (Novolog mL FlexPen U-100 Insulin aspart) nortriptyline 50 mg capsule See Rx Instructions .Route 11/21/21 .COMPLEX #90 caps trazodone 100 mg tablet See Rx Instructions .Route 11/21/21 .COMPLEX #90 tabs gabapentin 600 mg tablet See Rx Instructions PO DIRECTED 01/17/22 #450 tabs metformin 1,000 mg tablet 1,000 mg PO BID@0800,1700 #180 tabs 02/19/22 omeprazole 20 mg capsule,delayed 20 mg PO DAILY #90 tab-caps 02/19/22 release tamsulosin 0.4 mg capsule (Flomax) 0.4 mg PO DAILY #90 caps 02/19/22 pen needle, diabetic 32 gauge x #100 ea 04/02/22 (BD Ultra-Fine Paige Pen Needle) liraglutide 0.6 mg/0.1 mL (18 mg/3 1.8 mg (0.3 mL) subcut DAILY #27 mL 05/24/22 mL) subcutaneous pen injector (Victoza 2-Benjamín) cholecalciferol (vitamin D3) 25 25 mcg PO DAILY 08/20/22 mcg (1,000 unit) capsule insulin glargine 100 unit/mL (3 40 unit (0.4 mL) subcut BID Dx: 08/20/22 mL) subcutaneous pen (Lantus E11.69, to keep HbA1c less than 8% Solostar U-100 Insulin) #30 mL lisinopril 10 mg tablet 10 mg PO DAILY #90 tab-caps 08/20/22 lurasidone 40 mg tablet (Latuda) 40 mg PO DAILY #90 tabs 08/23/22 bisacodyl 5 mg tablet,delayed 5 mg PO ONCE colonscopy bowel prep 09/06/22 release (Dulcolax (bisacodyl)) #4 tabs polyethylene glycol 3350 17 238 g PO ONCE colonoscopy prep 09/06/22 gram/dose oral powder #238 grams krill 1 cap PO DIRECTED 09/21/22 [id number] 1,500 mg-165 mg-67.5 mg capsule (Krill Oil ([place] 3 and 6)) vitamin A-vitamin C-vit E-min 1 tab PO DAILY 09/21/22 tablet Current Visit Medications: Current Medications Generic Name Dose Route Start Last Admin Trade Name Freq PRN Reason Stop Dose Admin Ringer's Solution 1,000 mls @ 80 mls/hr 09/24/22 06:00 09/24/22 06:53 IV 10/21/22 23:59 80 mls/hr INFUSION WHIT Administration IV Miscellaneous Supplies 1 each 09/24/22 06:00 Iv Access IV 10/21/22 23:59 DIRECTED WHIT Sodium Chloride 0 ml 09/24/22 06:00 Normal Saline Flush 10 Ml Syr IV 10/21/22 23:59 PRN PRN Sodium Chloride 0 ml 09/24/22 06:00 Normal Saline 10 Ml Vial IJ 10/21/22 23:59 DIRECTED PRN Sterile Water 0 ml 09/24/22 06:00 Water,Injection,Sterile 10 Ml Vial IJ 10/21/22 23:59 DIRECTED PRN PFSH Active Problems Active Problems: Problem Status Onset Code Type 2 diabetes mellitus E11.9 Cellulitis of right ankle L03.115 Diabetic foot ulcer E11.621, L97.509 BPH w urinary obs/LUTS N40.1, N13.8 Mechanical dysphagia R13.19 Dupuytren's contracture of left hand M72.0 Right carpal tunnel syndrome G56.01 Left carpal tunnel syndrome G56.02 Type 2 diabetes mellitus with complication, with long-term current use of insulin E11.8, Z79.4 Phantom limb pain 02/01/17 G54.6 Insomnia, unspecified 02/01/17 G47.00 History of substance abuse 02/18/17 Z87.898 Gastroesophageal reflux disease without esophagitis 02/01/17 K21.9 Diverticulitis of intestine 02/01/17 K57.92 Diabetic polyneuropathy associated with diabetes mellitus due to underlying condition 02/18/17 E08.42 Chronic toe pain, left foot 02/01/17 M79.675, G89.29 Bipolar affective disorder 02/01/17 F31.9 Arthritis 02/01/17 M19.90 Amputation of left lower extremity 02/18/17 S88.912A Medical History Medical History History of COVID-19 01/24, vaccinated at the time, resolved without sequelae Medical History Comments:: L VIA Pt. states in the 70's he had unknown complications with gas, but was told by anesthesia for the rest of his life to report that he had issues with gas, states he woke up in the middle of surgery. Pt. states he has obviously had surgery since then, and been okay. Surgical History Surgical History Amputation LLE BKA. RLE toe amputations. Colectomy (~2002) Hernia repair (~1999) History of carpal tunnel release Right History of partial amputation of toe of right foot Total replacement of hip R, ~2014 Tobacco Smoking/Tobacco Use Status: Former Tobacco Use Passive smoking exposure: No Alcohol Alcohol Intake: former Substance Use Substance use: Daily Substance use type: former substance user and marijuana Details: Marijuana for phantom limb pain Vital Signs and Lab Results Vital Signs Most Recent Vital Signs in EMR: Most Recent Vital Signs Temp Pulse Resp BP Pulse Ox 36.3 C L 92 H 18 136/93 H 97 05/22/23 06:15 09/24/22 06:15 09/24/22 06:15 09/24/22 06:15 09/24/22 06:15 Point of Care Results Point of Care Results: Finger Stick Blood Glucose 115 09/24/22 06:50 Lab Results Blood Type / Crossmatch: No Data to Display Complete Blood Count: No Data to Display Complete Metabolic Panel: No Data to Display Liver Function Panel: No Data to Display Coagulation Panel: No Data to Display Cardiac Panel: No Data to Display Arterial Blood Gas: No Data to Display Venous Blood Gas: No Data to Display Pancreas Panel: No Data to Display Thyroid Panel: No Data to Display Infectious Disease: No Data to Display Blood Cultures: No Data to Display Toxicology Panel: No Data to Display Anesthesia Assessment and Plan Anesthesia History Personal History: Other Family History: No Family History of Anesthesia Complications Exercise Tolerance Exercise Tolerance: Metabolic Equivalents>4 Pertinent Negatives Pertinent Negatives: No Symptoms of GERD Cardiac & Pulmonary Exam Cardiac Exam: Normal S1/S2 Heart Sounds Pulmonary Exam: Clear Bilateral Breath Sounds Implantable Cardiac Device Does patient have a Pacemaker or an ICD?: No Airway Exam Known Difficult Airway: No Mallampati Class: 2 Mouth Opening: Normal (> 3cm) Thyromental Distance: Greater than 3 cm Neck Range of Motion: Full ROM Neck Circumference: Normal Teeth Condition: Normal Dentition ASA Classification ASA Score: ASA 2 Emergency Case?: No NPO Status NPO Status: NPO Clears >2 hours, Solids >8 hours Anesthesia Plan Resuscitation Status: Full Code Anesthesia Technique: MAC Anesthesia Airway Planned: Natural Airway Monitors Used: Standard Monitors
[2022-09-24 06:56] VITALS: BMI 25.9
[2022-09-24 08:00] VITALS: BP 112/68; PULSE 89; RESP 16; TEMP 36.8; O2SAT 97
--- NOTE | 2022-09-24 08:01 | W.PM.OP ---
Date of service: 09/24/22 Time of Service: 08:01 Operative Note Operative Note Refer to Anesthesia Record Procedure Description: Procedures performed: 1. Colonoscopy Preoperative diagnosis: Surveillance colonoscopy Postoperative diagnosis: Sigmoid diverticulosis Surgeon: Haroon Marx Anesthesia: Fran Indication for procedure: 56-year-old man without any symptoms, prior colonoscopy with diverticulosis years ago, no family history of colon cancer due for surveillance. Findings: left-sided diverticulosis.? Normal Rectum. Surveillance/follow-up recommendations: 10 years Complications: None Blood loss: Minimal Prep: Excellent Procedure in detail: Written consent was obtained from the patient who was in agreement with the risks, benefits and indications of the procedure.? We went to the endoscopy suite and laid the patient in left lateral decubitus position.? Anesthesia was administered which was tolerated well.? A timeout was performed and when we are all in agreement we began the procedure. Digital rectal exam and visual examination was performed and within normal limits.? A well?lubricated colonoscope was advanced without difficulty all the way to the cecum identified by the ileocecal valve, and triangular folds and appendiceal orifice.?It was then slowly withdrawn.?? Retroflexion was performed in the rectum.? The findings/interventions are noted above. The scope was then removed and the patient tolerated the procedure well and was then taken back to the PACU in hemodynamically stable condition.
[2022-09-24 08:20] VITALS: BP 113/90; RESP 16; TEMP 36.3; O2SAT 97
--- NOTE | 2022-09-24 08:34 | W.ANESPOSTOP ---
Postoperative Evaluation Date, Time and Location Date Performed: 09/24/22 Time Performed: 08:34 Patient Location: Day Surgery Unit Vital Signs Most Recent Imported Vital Signs: Most Recent Vital Signs Temp Pulse Resp BP Pulse Ox 36.3 C L 89 16 113/90 97 09/24/22 08:20 09/24/22 08:00 09/24/22 08:20 09/24/22 08:20 09/24/22 08:20 Pain Score Most Recent Pain Score: Most Recent Pain Score Pain Level 0 09/24/22 08:20 Assessment Mental Status: Awake (Alert & Oriented to Patient Baseline) Airway and Respiratory Function: Patent airway with normal (patient baseline) respiratory exam Cardiovascular Function: Hemodynamically Stable Hydration Status: Adequately Hydrated Nausea & Vomiting: No Nausea or Vomiting Pain: Pt. Denies Any Pain Peripheral Nerve Block: Patient did not receive a nerve block
[2022-09-24 08:46] VITALS: BP 115/68; PULSE 68; RESP 18; TEMP 36.8; O2SAT 96
== END 2022-09-24 08:50 | disposition home or self-care (01) ==
PROVIDERS: PCP Family Medicine; Visit Provider Student in an Organized Health Care Education/Training Program
PROC: 0DJD8ZZ Inspection of Lower Intestinal Tract, Via Natural or Artificial Opening Endoscopic (ICD-10-PCS; CPT 45378; principal; 2022-09-24 07:30)
DX: Z12.11 Encounter for screening for malignant neoplasm of colon (principal); K57.30 Diverticulosis of large intestine without perforation or abscess without bleeding
CPT/HCPCS: 45378

== ENCOUNTER → 2022-12-25 13:27 | Outpatient (CLI) | payer OTHER, MEDICAID, SELFPAY ==
--- NOTE | 2022-12-25 10:45 | DI.RAD_ITS ---
Exam(s) XR LUMBAR SPINE COMPLETE EXAM: XR LUMBAR SPINE COMPLETE CLINICAL HISTORY: Acute low back pain, r/o compressioin frx, M54.50. TECHNIQUE: 2D digital imaging was performed. COMPARISON: CT CT ABDOMEN PELVIS W from 07/09/2020 FINDINGS: Five views. There is multilevel chronic advanced degenerative disc disease in lower lumbar spine lower 3 levels. Also anterior osteophytes. At L3-4 level there is asymmetric narrowing of the right-side of the dis c space when compared to the left. Bone density normal. No osseous lesions. Minimal if any significant facet arthropathy. There is a right hip prosthesis noted. Also left anterior abdominal wall hernia mesh. IMPRESSION: Multilevel chronic degenerative disc disease. No obvious acute fractures in the lumbar spine. DATA REPOSITORY: RADIATION DOSE DELIVERED:
== END ==
PROVIDERS: PCP Family Medicine; Visit Provider Family Medicine
DX: M51.36 Other intervertebral disc degeneration, lumbar region
CPT/HCPCS: 72110

== ENCOUNTER 2023-03-07 15:30 | Outpatient (CLI) | payer OTHER, MEDICAID, SELFPAY ==
[2023-03-07 16:13] LABS: Anion Gap 12.4 mmol/L (3-11); BUN 16 mg/dL (7-18); CO2 24.6 mmol/L (21.0-32.0); CREATININE 1.2 mg/dL (0.70-1.30); Calcium 9.8 mg/dL (8.5-10.1); Chloride 101 mmol/L (98-107); Glucose 74 mg/dL (74-106); Potassium 4.6 mmol/L (3.5-5.1); Sodium 138 mmol/L (136-145)
== END 2023-03-07 15:31 | disposition home or self-care (01) ==
LOC: LBO 15:33
PROVIDERS: PCP Family Medicine; Visit Provider Family Medicine
DX: E11.9 Type 2 diabetes mellitus without complications (principal)
CPT/HCPCS: 36415; 80048

== ENCOUNTER → 2023-06-10 04:34 | Outpatient (CLI) | payer OTHER, MEDICAID, SELFPAY ==
--- NOTE | 2023-06-10 06:45 | DI.CTLCSR_ITS ---
Exam(s) CT CHEST LUNG CANCER SCREEN EXAM: CT CHEST LUNG CANCER SCREEN CLINICAL HISTORY: Screening for lung cancer,former smoker, [id number]. TECHNIQUE: Imaging Protocol: Low Dose Technique CONTRAST MATERIAL: None COMPARISON: CR,XR XR CHEST 2V PA LATERAL from 01/07/2021 FINDINGS: CHEST: LUNGS: There are no ominous pulmonary nodules. A few small tiny calcified granulomas are noted bilat erally. There are no confluent infiltrates. No pleural effusions. MEDIASTINUM: There is no obvious hilar nor mediastinal adenopathy. CARDIAC: Heart size is normal. There is no pericardial effusion.Caliber of the thoracic aorta is wit hin normal limits. OTHER: OSSEOUS: No significant osseous lesions.. IMPRESSION: 1. No significant pulmonary nodules 2. And a trace fluid pleural effusions nor intrathoracic adenopathy 3. Lung RADS Cat 1 - Negative: No nodules and definitely benign nodules Lung-RADS 1.0 CATEGORIES: Category 0 - Prior chest CT exam(s) being located for comparison. Category 1 - Annual screening in 12 months. No nodules or definitely benign nodules. Category 2 - Annual screening in 12 months. Benign appearance. Nodules with low likelihood of becomin g active cancer. Category 3 - 6-month follow-up. Probably benign. Short-term follow-up suggested. Nodules with low lik elihood of becoming active cancer. Category 4A - 3-month follow-up and CT/PET if >8 mm in size. Suspicious finding. Findings which requi re additional testing. Category 4B - Findings which require additional testing and tissue sampling. Category 4X - Category 3 or 4 nodules with additional features or imaging findings that increases the suspicion of malignancy. Modifier S- Potentially clinically significant findings (non lung cancer) RADIATION DOSE DELIVERED: 79mGy.cm Total DLP DATA REPOSITORY: All CT scans at this facility are submitted to the National Radiology Data Registry (NRDR) Dose Index Registry (DIR) with the [employer] (ACR). RADIATION OPTIMIZATION: All CT scans at this facility use at least one of these dose optimization te chniques: automated exposure control; mA and/or kV adjustment per patient size (includes targeted exa ms where dose is matched to clinical indication); or iterative reconstruction.
== END ==
PROVIDERS: PCP Family Medicine; Visit Provider Family Medicine
DX: Z87.891 Personal history of nicotine dependence (principal); Z12.2 Encounter for screening for malignant neoplasm of respiratory organs
CPT/HCPCS: 71271

== ENCOUNTER 2023-12-17 02:36 | Outpatient (CLI) | payer OTHER, MEDICAID, SELFPAY ==
[2023-12-21 09:31] LABS: Apolipoprotein B, Serum 120 mg/dL; Beta VLDL Cholesterol Not Detected mg/dL (<15); Beta VLDL Triglycerides Not Detected mg/dL (<15); Cholesterol, Total, CDC 222 mg/dL; Chylomicron Cholesterol 6 mg/dL; Chylomicron Triglycerides 111 mg/dL; HDL Cholesterol, CDC 36 mg/dL (>=40); LDL Cholesterol 118 mg/dL; LDL Triglycerides 57 mg/dL (<=50); Lp(a) Cholesterol <5 mg/dL (<5); LpX Not detected; Triglycerides, CDC 468 mg/dL; VLDL Cholesterol 62 mg/dL (<30); VLDL Triglycerides 271 mg/dL (<120)
== END 2023-12-17 02:37 | disposition home or self-care (01) ==
LOC: LBO 02:37
PROVIDERS: PCP Family Medicine; Visit Provider Family Medicine
DX: E78.1 Pure hyperglyceridemia (principal)
CPT/HCPCS: 36415; 80061; 82172; 82664

== ENCOUNTER 2024-05-13 17:34 | Emergency (ER) | payer MEDICARE, MEDICAID, SELFPAY ==
[2024-05-13 17:41] VITALS: BP 140/89; PULSE 94; RESP 20; TEMP 36.7; O2SAT 98
[2024-05-13 18:53] VITALS: BP 138/88; PULSE 92; RESP 16; TEMP 36.4; O2SAT 95
--- NOTE | 2024-05-13 19:07 | ED.GENADUL_ITS ---
Discharge Plan Disposition Patient Disposition: Home Condition: Stable Discharge Details Clinical Impression: Paronychia of finger of left hand Primary Care Provider: Zeeshan Singh ED Provider: Jasper Jordan Home Meds and New Rx's Prescriptions: New sulfamethoxazole-trimethoprim 800-160 mg tablet 1 tab PO BID 13 Days Qty: 26 0RF Continued acetaminophen 500 mg tablet 1,000 mg PO Q6H PRN PRN (Reason: pain) (DME) Dexcom G7 Commercial Litigation Associate Misc See Rx Instructions .Route Qty: 1 6RF Rx Instructions: To keep HbA1c less than 7%, on insulin, use with meals and prn (DME) Dexcom G7 Sensor Device See Rx Instructions .Route Qty: 1 6RF Rx Instructions: To keep HbA1c less than 7%, check with meals and prn (DME) L BKA prosthetic limb See Rx Instructions .Route .MEDSUPPLY Qty: 1 0RF Rx Instructions: As directed (DME) Prosthetic accessories Qty: 1 0RF Dose Instruction: As directed Rx Instructions: As directed cholecalciferol (vitamin D3) 25 mcg (1,000 unit) capsule 25 mcg PO DAILY diphenhydramine HCl [Benadryl Allergy] 25 mg tablet 75 mg PO QHS Neuriva Plus 0.85 mg-200 mcg-1.2 mcg tablet,chewable 1 tab PO DAILY Patient Comments: 1 tablet daily Alive Men's 50 Plus Multivit 120 mcg-150 mcg -50 mg tablet,chewable 2 tab PO DAILY Ocuvite Adult 50 Plus 250 mg (90 mg-160 mg) capsule 1 cap PO DAILY finasteride 5 mg tablet 5 mg PO DAILY Qty: 90 3RF lurasidone [Latuda] 40 mg tablet 40 mg PO DAILY Qty: 90 3RF Rx Instructions: must administer with food (at least 350 calories) lisinopril 10 mg tablet 10 mg PO DAILY Qty: 90 3RF trazodone 100 mg tablet See Rx Instructions .ROUTE .COMPLEX Qty: 90 3RF Dose Instruction: Take 1 tablet by mouth at bedtime. Rx Instructions: Take 1 tablet by mouth at bedtime. gabapentin 600 mg tablet See Rx Instructions PO DIRECTED MDD 3000 mg Qty: 450 3RF Rx Instructions: 1200mg am-600mg noon- 1200mg pm PO as directed; omeprazole 20 mg capsule,delayed release(DR/EC) See Rx Instructions .ROUTE .COMPLEX Qty: 90 1RF Dose Instruction: Take 1 capsule by mouth daily. Rx Instructions: Take 1 capsule by mouth daily. metformin 1,000 mg tablet 1,000 mg PO BID@0800,1700 Qty: 180 1RF Rx Instructions: DX: DIABETES insulin aspart U-100 [Novolog FlexPen U-100 Insulin] 100 unit/mL (3 mL) insulin pen See Rx Instructions Sub-Q AC MDD 54 units Qty: 15 11RF Rx Instructions: Subcut before meals; For DM E11.8 to maintain A1C <8 Units as directed by sliding scale (DME) Diabetic shoes Qty: 2 0RF Rx Instructions: As directed, one pair insulin degludec [Tresiba FlexTouch U-100] 100 unit/mL (3 mL) insulin pen See Rx Instructions .ROUTE .COMPLEX Qty: 15 4RF Dose Instruction: Inject 40 units under the skin twice daily. Max daily dose 80 units. Rx Instructions: Inject 40 units under the skin twice daily. Max daily dose 80 units. (DME) pen needle, diabetic [BD Ultra-Fine Paige Pen Needle] 32 gauge x 5/32 needle 1 ea Miscellaneous 5X/DAY Qty: 100 11RF Rx Instructions: PLEASE DISPENSE QS 3 MONTHS FOR USE WITH INSULINS and victoza (max 5/day). nortriptyline 75 mg capsule 75 mg PO QHS Qty: 90 3RF ibuprofen 600 mg tablet 600 mg PO TID PRNQty: 30 3RF Krill Oil ([place] 3 and 6) 1,500-165-67.5 mg Capsule 1 cap PO DIRECTED Discharge Instructions Instructions: Sulfamethoxazole and Trimethoprim, Paronychia ED Additional Instructions: You were seen in the emergency department for the paronychia of 3 fingers of your left hand with a mild red streak up your arm suspicious for systemic spread of infection, you have no elevated white blood cells on your complete blood count, he had a mild elevation of lactate but you do not drink enough water. We did take blood cultures and you prefer to trial p.o. antibiotics. I have sent a prescription for 14 days of Bactrim to [facility] in [place], someone will contact you if your blood cultures are positive which would require return for IV antibiotics. Please return for any acute worsening of infection despite treatment, please keep the areas around the fingers clean, soaks with warm salt water and hot compresses can help dry out any pus from these areas. Referrals: Zeeshan Singh DO [Primary Care Provider] - Discharge Data Discharge Date/Time-TO BE ENTERED AT DEPARTURE: 05/13/24 20:24 HPI General Date/Time Provider Initiated Documentation: 05/13/24 17:38 . HPI Narrative: 58 year-old male presents to ED today by POV/ambulating with a chief complaint of L middle finger and pinky finger paronychia, with a streak of lymphadenitis up to his L elbow with onset over the past few days. Quality described as mild red streaking, has known MRSA, has had this type of infection before, no radiation to fever, purulent drainage, nausea, weakness. Severity is described as mild. Palliating factors include has had Bactrim DS for similar infections in the past. Provoking factors include nothing specific. 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 Patient not anticoagulated. Related Data Home Medications ?Medication ?Instructions ?Recorded ?Confirmed ibuprofen 600 mg tablet 600 mg PO TID PRN #30 tabs 06/23/19 05/13/24 acetaminophen 500 mg tablet 1,000 mg PO Q6H PRN PRN pain 08/30/20 05/13/24 cholecalciferol (vitamin D3) 25 25 mcg PO DAILY 08/20/22 05/13/24 mcg (1,000 unit) capsule krill 1 cap PO DIRECTED 09/21/22 05/13/24 ppi-pt1-fyo-kqj-an4-zby-astax 1,500 mg-165 mg-67.5 mg capsule (Krill Oil ([place] 3 and 6)) blood-glucose meter,continuous #1 ea 12/25/22 05/13/24 (Dexcom G7 Commercial Litigation Associate) blood-glucose sensor (Dexcom G7 #1 ea 12/25/22 05/13/24 Sensor device) lurasidone 40 mg tablet (Latuda) 40 mg PO DAILY #90 tabs 07/18/23 05/13/24 lisinopril 10 mg tablet 10 mg PO DAILY #90 tab-caps 07/19/23 05/13/24 trazodone 100 mg tablet See Rx Instructions .Route 09/16/23 05/13/24 .COMPLEX #90 tabs L BKA prosthetic limb #1 ea 11/21/23 05/13/24 Prosthetic accessories #1 ea 11/21/23 05/13/24 gabapentin 600 mg tablet See Rx Instructions PO DIRECTED 12/10/23 05/13/24 #450 tabs omeprazole 20 mg capsule,delayed See Rx Instructions .Route 12/17/23 05/13/24 release .COMPLEX #90 caps metformin 1,000 mg tablet 1,000 mg PO BID@0800,1700 #180 tabs 01/13/24 05/13/24 insulin aspart U-100 100 unit/mL See Rx Instructions subcut AC #15 03/17/24 05/13/24 (3 mL) subcutaneous pen (Novolog mL FlexPen U-100 Insulin aspart) Diabetic shoes #2 ea 03/18/24 05/13/24 Tresiba FlexTouch U-100 100 See Rx Instructions .Route 04/09/24 05/13/24 unit/mL (3 mL) subcutaneous pen .COMPLEX #15 mL (insulin degludec) nortriptyline 75 mg capsule 75 mg PO QHS #90 caps 05/08/24 05/13/24 pen needle, diabetic 32 gauge x #100 ea 05/08/24 05/13/24 5/32 (BD Ultra-Fine Paige Pen Needle) B6 0.85 mg-folic 200 1 tab PO DAILY 05/11/24 05/13/24 [id number]-[id number]-tsqgcyO52-rewdsr-iuxahdzvdoqj oral chewable tablet (Neuriva Plus) diphenhydramine HCl 25 mg tablet 75 mg PO QHS Sleep 05/11/24 05/13/24 (Benadryl Allergy) finasteride 5 mg tablet 5 mg PO DAILY #90 tabs 05/11/24 05/13/24 lsptzmer-fwi-kvdla 120 mcg-lutein 2 tab PO DAILY Diabetic formula 05/11/24 05/13/24 150 mcg-herb 50 mg chewable tablet (Alive Men's 50 Plus Multivitamin) gnyjxeui-klw- 250 mg-dha 90 1 cap PO DAILY 05/11/24 05/13/24 mg-epa 160 nh-zlun-uhnr-zeax capsule (Ocuvite Adult 50 Plus) sulfamethoxazole 800 1 tab PO BID paronychia 13 days 05/13/24 mg-trimethoprim 160 mg tablet #26 tabs Previous Rx's ?Medication ?Instructions ?Recorded ibuprofen 600 mg tablet 600 mg PO TID PRN #30 tabs 06/23/19 blood-glucose meter,continuous #1 ea 12/25/22 (Dexcom G7 Commercial Litigation Associate) blood-glucose sensor (Dexcom G7 #1 ea 12/25/22 Sensor device) lurasidone 40 mg tablet (Latuda) 40 mg PO DAILY #90 tabs 07/18/23 lisinopril 10 mg tablet 10 mg PO DAILY #90 tab-caps 07/19/23 trazodone 100 mg tablet See Rx Instructions .Route 09/16/23 .COMPLEX #90 tabs L BKA prosthetic limb #1 ea 11/21/23 Prosthetic accessories #1 ea 11/21/23 gabapentin 600 mg tablet See Rx Instructions PO DIRECTED 12/10/23 #450 tabs omeprazole 20 mg capsule,delayed See Rx Instructions .Route 12/17/23 release .COMPLEX #90 caps metformin 1,000 mg tablet 1,000 mg PO BID@0800,1700 #180 tabs 01/13/24 insulin aspart U-100 100 unit/mL See Rx Instructions subcut AC #15 03/17/24 (3 mL) subcutaneous pen (Novolog mL FlexPen U-100 Insulin aspart) Diabetic shoes #2 ea 03/18/24 Tresiba FlexTouch U-100 100 See Rx Instructions .Route 04/09/24 unit/mL (3 mL) subcutaneous pen .COMPLEX #15 mL (insulin degludec) nortriptyline 75 mg capsule 75 mg PO QHS #90 caps 05/08/24 pen needle, diabetic 32 gauge x #100 ea 05/08/24 (BD Ultra-Fine Paige Pen Needle) finasteride 5 mg tablet 5 mg PO DAILY #90 tabs 05/11/24 sulfamethoxazole 800 1 tab PO BID paronychia 13 days 05/13/24 mg-trimethoprim 160 mg tablet #26 tabs Allergies Allergy/AdvReac Type Severity Reaction Status Date / Time No Known Drug Allergies Allergy Other (See Verified 05/13/24 17:46 Comment) General Stated Complaint: Cellulitis [place]: 3 Review of Systems All systems reviewed & are unremarkable except as noted in HPI and below Exam Narrative Exam Narrative: GENERAL APPEARANCE: Well-nourished, non-toxic, awake and alert, atraumatic, no acute distress. SKIN: Warm, pink, dry, paronychia of left third and fifth fingers with lymphadenitis up to the dorsal mid forearm, nontoxic, left radial pulse 2+, afebrile HEAD: Normocephalic, atraumatic, normal hair distribution for gender/age. EYES: Normal conjunctiva, no exudates on lids/lashes. ENT: Nares patent, no circumoral cyanosis, no facial swelling NECK: Supple, trachea midline, painless cervical ROM. LUNGS/CHEST: Non-labored respirations, normal A/P diameter, symmetrical expansion, no chest wall deformity HEART (CV/PV): Regular rate, no peripheral edema, no JVD. ABDOMEN: Soft, non-distended, no guarding. MSK: Normal ROM, no swelling/deformity to bilateral UEs or LEs, moving all extremities without weakness, no cyanosis, spine midline without tenderness, normal curvature. NEURO: Mental Status AAOx4 - alert to person, place, time, events No facial droop, no forehead involvement. Motor: No focal weakness - strength 5/5 in bilateral UEs and LEs, proximal and distal, symmetric. Sensory: sensation intact to light touch globally. Gait normal: patient ambulated without ataxia into ED room. PSYCH: euthymic, cooperative, pleasant, appropriate speech Course Vital Signs Vital signs: Vital Signs Temperature 36.7 C 05/13/24 17:41 Pulse 94 H 05/13/24 17:41 Respiratory Rate 20 05/13/24 17:41 Blood Pressure 140/89 05/13/24 17:41 Pulse Oximetry 98 05/13/24 17:41 Temperature 36.4 C L 05/13/24 18:53 Temperature Source Oral 05/13/24 18:53 Pulse 92 H 05/13/24 18:53 Respiratory Rate 16 05/13/24 18:53 Blood Pressure 138/88 05/13/24 18:53 Blood Pressure Position Sitting 05/13/24 18:53 Pulse Oximetry 95 05/13/24 18:53 Oxygen Delivery Method Room Air 05/13/24 18:53 Pain Level 3 05/13/24 18:53 Medical Decision Making This dictation utilizes qkzfz-gk-rncu dictation software and may contain unedited grammatical errors. 58 year-old male presents to ED today by POV/ambulating with a chief complaint of L middle finger and pinky finger paronychia, with a streak of lymphadenitis up to his L elbow with onset over the past few days. Quality described as mild red streaking, has known MRSA, has had this type of infection before, no radiation to fever, purulent drainage, nausea, weakness. Severity is described as mild. Palliating factors include has had Bactrim DS for similar infections in the past. Provoking factors include nothing specific. 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 Patients' medical history: T2DM, history of diabetic foot ulcers with left BKA, BPH with LUTS. Family and social history: noncontributory. Pertinent exam findings / vital signs include paronychia of left third and fifth fingers with lymphadenitis up to the dorsal mid forearm, nontoxic, left radial pulse 2+, afebrile. Differential / pathologies of concern include cellulitis, paronychia, less likely sepsis or bacteremia. Diagnostic studies of: -CBC, CMP, lactate, blood cultures. -CBC benign, lactate negative Interventions of: -Rx for Bactrim. ED Course/Assessment/Plan: 58-year-old male with chronic diabetes presents with paronychia of 2 fingers of the left hand with lymphadenitis spreading up the arm, was sent here by express care, patient prefers to await cultures and discharge on p.o. antibiotics. He will return for any worsening and is well aware of complications as he has a left BKA due to this.. Findings not consistent with toxic vital signs, sepsis, bacteremia. Disposition of paronychia of finger of left hand. Patient verbalized understanding of the plan and return to ED criteria and engaged in shared decision making. Medical Records Medical records reviewed: Yes I reviewed the patient's medical records. Lab Data Lab results reviewed: Yes I reviewed the patient's lab results. Labs: 05/13/24 19:15 Blood Blood Culture - Pending 05/13/24 19:30 Blood Blood Culture - Pending Laboratory Tests Range/Units 05/13/24 19:30 WBC (4.4-10.8) 10^3/uL 9.17 RBC (4.36-5.78) 10^6/uL 5.13 Hgb (13.5-17.5) g/dL 14.7 Hct (40.0-50.0) % 43.7 MCV (80-95) fL 85 MCH (27.0-33.0) pg 28.7 MCHC (32.0-36.0) % 33.6 RDW (11.8-14.1) % 12.9 Plt Count (130-400) 10^3/uL 223 MPV (8.0-11.0) fL 9.3 Immature Gran % % 1.3 Neutrophils % % 69.1 Lymphocytes % % 20.5 Monocytes % % 5.3 Eosinophils % % 2.8 Basophils % % 1.0 Nucleated RBC % (0.0-0.3) % 0.0 Absolute Neutrophils (1.2-6.7) 10^3/uL 6.33 Absolute Lymphocytes (1.2-3.4) 10^3/uL 1.88 Absolute Monocytes (0.1-0.8) 10^3/uL 0.49 Absolute Eosinophils (0.0-0.7) 10^3/uL 0.26 Absolute Basophils (0.0-0.2) 10^3/uL 0.09 VBG Lactate (0.6-1.4) mmol/L 2.1 H Sodium (136-145) mmol/L 138 Potassium (3.5-5.1) mmol/L 4.6 Chloride (98-107) mmol/L 102 Carbon Dioxide (21.0-32.0) mmol/L 26.1 Anion Gap (3-11) mmol/L 9.9 BUN (7-18) mg/dL 18 Creatinine (0.70-1.30) mg/dL 1.2 Est GFR (CKD-EPI 2020) (mL/min/1.73m2) 69.66 Glucose (74-106) mg/dL 177 H Calcium (8.5-10.1) mg/dL 9.7 Total Bilirubin (0.2-1.0) mg/dL 0.32 AST (15-37) U/L 29 ALT (16-63) U/L 41 Alkaline Phosphatase (46-116) U/L 83 Total Protein (6.4-8.2) g/dL 8.3 H Albumin (3.4-5.0) g/dL 3.8 Quality:SDOH Health Related Social Needs: Health related social needs details Patient declined PFSH All Active Problems Paronychia of finger of left hand (Acute) Type 2 diabetes mellitus (Chronic) Diabetic foot ulcer (Acute) BPH w urinary obs/LUTS (Acute) Mechanical dysphagia (Acute) Dupuytren's contracture of left hand (Acute) Right carpal tunnel syndrome (Acute) Left carpal tunnel syndrome (Acute) Type 2 diabetes mellitus with complication, with long-term current use of insulin (Chronic) Phantom limb pain (Chronic 02/01/17) LLE Insomnia, unspecified (Chronic 02/01/17) History of substance abuse (Chronic 02/18/17) Multiple substances [facility], [place], [place] Gastroesophageal reflux disease without esophagitis (Chronic 02/01/17) Diabetic polyneuropathy associated with diabetes mellitus due to underlying condition (Chronic 02/18/17) RX Gabapentin Bipolar affective disorder (Chronic 02/01/17) HS Arthritis (Chronic 02/01/17) Back Amputation of left lower extremity (Chronic 02/18/17) BKA; wears prosthetic Medical History (Updated 05/13/24 @ 20:15 by RUDDY Rouse) History of COVID-19 01/24, vaccinated at the time, resolved without sequelae Surgical History History of carpal tunnel release Right 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 RLE toe amputations. Family History Other Adopted Social History (Updated 05/31/23 @ 10:38 by Pamela Cano) Smoking/Tobacco Use Status: Former Tobacco Use Quit Date: 05/06/12 Second Hand Exposure: No Smoking risk assessment performed?: Yes Alcohol Intake: former Drug use: Daily Substance use type: former substance user and marijuana Details: Marijuana for phantom limb pain Adopted: Yes Caregiver/Support person: No Foster care: Yes Household members: children Housing: apartment Number of Children: 5 number of grandchildren: 3 Communication Needs: None Education Level: master's degree Do you need help understanding health information?: Never current occupation: Disabled Pets and animals: Yes (2) Pets and animals: cat(s) Sexually active: No Do you think of yourself as: straight/heterosexual Current gender identity: male What is your relationship status?: How often do you talk on the phone with friends or family?: never How often do you get together with friends or relatives?: never Do you belong to any clubs or organized social groups?: no Panel score (0-1 are the most socially isolated patients): 0 NHANES result reviewed/action taken: No Duration: < 15 minutes/day Octavia/Mosque: Rossana Special octavia needs: No Seatbelt use: always Drive intox or ride w/intox ross carrier driver: No Working smoke detector in home: Yes Fire extinguisher in home: Yes Carbon monox detector in home: Yes Do you feel safe at home: Yes Do you feel safe in your relationship?: Yes Additional Social history: 8 children total
[2024-05-13] MEDS: Sulfameth/Trimeth DS, 2 TABS/BTL 1 TAB PO (19:40)
[2024-05-13 19:42] VITALS: BP 153/90; PULSE 91; RESP 17; O2SAT 96
[2024-05-13 19:45] LABS: Abs Immature Grans 0.12 10^3/uL (0.0-0.06); Absolute Basophil Count 0.09 10^3/uL (0.0-0.2); Absolute Eosinophil Count 0.26 10^3/uL (0.0-0.7); Absolute Lymphocyte Count 1.88 10^3/uL (1.2-3.4); Absolute Monocyte Count 0.49 10^3/uL (0.1-0.8); Absolute Neutrophil Count 6.33 10^3/uL (1.2-6.7); Eosinophils % 2.8 %; HCT 43.7 % (40.0-50.0); HGB 14.7 g/dL (13.5-17.5); Immature Grans % 1.3 %; Lactate 2.1 mmol/L (0.6-1.4); Lymphocytes % 20.5 %; MCH 28.7 pg (27.0-33.0); MCHC 33.6 % (32.0-36.0); MCV 85 fL (80-95); MPV 9.3 fL (8.0-11.0); Monocytes % 5.3 %; Neutrophils % 69.1 %; Platelet Count 223 10^3/uL (130-400); RBC 5.13 10^6/uL (4.36-5.78); RDW 12.9 % (11.8-14.1); RDW-SD 39.2 fL; WBC 9.17 10^3/uL (4.4-10.8)
[2024-05-13 19:59] LABS: ALT 41 U/L (16-63); AST 29 U/L (15-37); Albumin 3.8 g/dL (3.4-5.0); Alkaline Phosphatase 83 U/L (46-116); Anion Gap 9.9 mmol/L (3-11); BUN 18 mg/dL (7-18); Bilirubin, Total 0.32 mg/dL (0.2-1.0); CO2 26.1 mmol/L (21.0-32.0); CREATININE 1.2 mg/dL (0.70-1.30); Calcium 9.7 mg/dL (8.5-10.1); Chloride 102 mmol/L (98-107); Estimated GFR 69.66 (mL/min/1.73m2); Glucose 177 mg/dL (74-106); Potassium 4.6 mmol/L (3.5-5.1); Sodium 138 mmol/L (136-145); Total Protein 8.3 g/dL (6.4-8.2)
[2024-05-13 20:02] VITALS: BP 150/75; PULSE 90; RESP 16; O2SAT 94
== END 2024-05-13 20:24 | disposition home or self-care (01) ==
PROVIDERS: Emergency Provider Physician Assistant; PCP Family Medicine
DX: L03.012 Cellulitis of left finger (principal); E11.9 Type 2 diabetes mellitus without complications; I10 Essential (primary) hypertension; Z79.4 Long term (current) use of insulin; Z79.84 Long term (current) use of oral hypoglycemic drugs; Z89.512 Acquired absence of left leg below knee; Z86.14 Personal history of Methicillin resistant Staphylococcus aureus infection
CPT/HCPCS: 80053; 87040; 99283; 83605; 85025

== ENCOUNTER 2024-06-05 05:56 | Day surgery (SDC) | payer MEDICARE, MEDICAID, SELFPAY ==
[2024-06-05 06:05] VITALS: BP 113/66; PULSE 78; RESP 16; TEMP 36.9; O2SAT 97
[2024-06-05] MEDS: Tropicam./Phenyleph. (1/2.5%) 5 ML BTL OD ×3 (06:30→06:40)
--- NOTE | 2024-06-05 06:57 | W.ANESPRE ---
General Info Date of Service Date Performed: 06/05/24 Height: 6 ft 3 in Weight: 99.8 kg Body Mass Index (BMI): 27.5 Surgical Procedure: Operation Date: 06/05/24 07:40 Proposed Procedure Side Surgeon p Cataract Extraction with IOL Implant Right Patrick Arizmendi MD Meds Allergies and Home Medications Allergies Allergy/AdvReac Type Severity Reaction Status Date / Time No Known Drug Allergies Allergy Other (See Verified 06/05/24 06:25 Comment) Home Medication ?Medication ?Instructions ?Recorded ibuprofen 600 mg tablet 600 mg PO TID PRN #30 tabs 06/23/19 acetaminophen 500 mg tablet 1,000 mg PO Q6H PRN PRN pain 08/30/20 cholecalciferol (vitamin D3) 25 25 mcg PO DAILY 08/20/22 mcg (1,000 unit) capsule krill 1 cap PO DIRECTED 09/21/22 fuw-vo8-hjv-jek-ft5-mrm-astax 1,500 mg-165 mg-67.5 mg capsule (Krill Oil ([place] 3 and 6)) blood-glucose meter,continuous #1 ea 12/25/22 (Dexcom G7 Heat Treat Puller) blood-glucose sensor (Dexcom G7 #1 ea 12/25/22 Sensor device) lurasidone 40 mg tablet (Latuda) 40 mg PO DAILY #90 tabs 07/18/23 lisinopril 10 mg tablet 10 mg PO DAILY #90 tab-caps 07/19/23 trazodone 100 mg tablet See Rx Instructions .Route 09/16/23 .COMPLEX #90 tabs L BKA prosthetic limb #1 ea 11/21/23 Prosthetic accessories #1 ea 11/21/23 gabapentin 600 mg tablet See Rx Instructions PO DIRECTED 12/10/23 #450 tabs omeprazole 20 mg capsule,delayed See Rx Instructions .Route 12/17/23 release .COMPLEX #90 caps metformin 1,000 mg tablet 1,000 mg PO BID@0800,1700 #180 tabs 01/13/24 insulin aspart U-100 100 unit/mL See Rx Instructions subcut AC #15 03/17/24 (3 mL) subcutaneous pen (Novolog mL FlexPen U-100 Insulin aspart) Diabetic shoes #2 ea 03/18/24 Tresiba FlexTouch U-100 100 See Rx Instructions .Route 04/09/24 unit/mL (3 mL) subcutaneous pen .COMPLEX #15 mL (insulin degludec) nortriptyline 75 mg capsule 75 mg PO QHS #90 caps 05/08/24 pen needle, diabetic 32 gauge x #100 ea 05/08/24 (BD Ultra-Fine Paige Pen Needle) B6 0.85 mg-folic 200 1 tab PO DAILY 05/11/24 rzq-N15-wbvwtlW01-uzefol-kvzexhihoxas oral chewable tablet (Neuriva Plus) diphenhydramine HCl 25 mg tablet 75 mg PO QHS Sleep 05/11/24 (Benadryl Allergy) finasteride 5 mg tablet 5 mg PO DAILY #90 tabs 05/11/24 tzmdiwem-mcm-egqtx 120 mcg-lutein 2 tab PO DAILY Diabetic formula 05/11/24 150 mcg-herb 50 mg chewable tablet (Alive Men's 50 Plus Multivitamin) fjiphgef-nir- 250 mg-dha 90 1 cap PO DAILY 05/11/24 mg-epa 160 pg-pouk-bbat-zeax capsule (Ocuvite Adult 50 Plus) Current Visit Medications: Current Medications Generic Name Dose Route Start Last Admin Trade Name Freq PRN Reason Stop Dose Admin Acetaminophen 1,000 mg 06/05/24 06:00 Acetaminophen 500 Mg Tab PO 07/05/24 05:59 Q4H PRN PRN Balanced Salt Solution 500 ml 06/05/24 06:00 Balanced Salt Soln.-Plus 500 Ml Bag OP 07/05/24 05:59 DIRECTED [facility] Miscellaneous Medication 0 ml 06/05/24 06:00 Prednisolone 1%, Moxifloxacin 0.5%, Bromfenac 0.09% 5.6ml Btl OD 07/05/24 05:59 DIRECTED [facility] Miscellaneous Medication 0 ml 06/05/24 06:00 06/05/24 06:40 Tropicam./Phenyleph. (1/2.5%) 5 Ml Btl OD 07/05/24 05:59 1 drp DIRECTED WHIT Administration Tetracaine HCl 0 ml 06/05/24 06:00 Tetracaine 0.5% 4 Ml Btl OD 07/05/24 05:59 DIRECTED [facility] PFSH Active Problems Active Problems: Problem Status Onset Code Posterior subcapsular age-related cataract, right eye Acute H25.041 Nuclear age-related cataract, right eye Acute H25.11 Paronychia of finger of left hand Acute L03.012 Type 2 diabetes mellitus Chronic E11.9 Diabetic foot ulcer Acute E11.621, L97.509 BPH w urinary obs/LUTS Acute N40.1, N13.8 Mechanical dysphagia Acute R13.19 Dupuytren's contracture of left hand Acute M72.0 Right carpal tunnel syndrome Acute G56.01 Left carpal tunnel syndrome Acute G56.02 Type 2 diabetes mellitus with complication, with long-term current use of insulin Chronic E11.8, Z79.4 Phantom limb pain Chronic 02/01/17 G54.6 Insomnia, unspecified Chronic 02/01/17 G47.00 History of substance abuse Chronic 02/18/17 Z87.898 Gastroesophageal reflux disease without esophagitis Chronic 02/01/17 K21.9 Diverticulitis of intestine Resolved 02/01/17 K57.92 Diabetic polyneuropathy associated with diabetes mellitus due to underlying condition Chronic 02/18/17 E08.42 Chronic toe pain, left foot Resolved 02/01/17 M79.675, G89.29 Bipolar affective disorder Chronic 02/01/17 F31.9 Arthritis Chronic 02/01/17 M19.90 Amputation of left lower extremity Chronic 02/18/17 S88.912A Medical History Medical History History of COVID-19 01/24, vaccinated at the time, resolved without sequelae Medical History Comments:: L BKA Pt. states in the 70's he had unknown complications with gas, but was told by anesthesia for the rest of his life to report that he had issues with gas, states he woke up in the middle of surgery. Pt. states he has obviously had surgery since then, and been okay. 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 RLE toe amputations. Tobacco Smoking/Tobacco Use Status: Former Tobacco Use Passive smoking exposure: No Second hand exposure: No Alcohol Alcohol Intake: former Substance Use Substance use: Current Sobriety Substance use type: former substance user Vital Signs and Lab Results Vital Signs Most Recent Vital Signs in EMR: Most Recent Vital Signs Temp Pulse Resp BP Pulse Ox 36.9 C 78 16 113/66 97 06/05/24 06:05 06/05/24 06:05 06/05/24 06:05 06/05/24 06:05 06/05/24 06:05 Point of Care Results Point of Care Results: Finger Stick Blood Glucose 104 06/05/24 06:28 Lab Results Blood Type / Crossmatch: No Data to Display Complete Blood Count: White Blood Count 9.17 10^3/uL (4.4-10.8) 05/13/24 19:30 Red Blood Count 5.13 10^6/uL (4.36-5.78) 05/13/24 19:30 Hemoglobin 14.7 g/dL (13.5-17.5) 05/13/24 19:30 Hematocrit 43.7 % (40.0-50.0) 05/13/24 19:30 Platelet Count 223 10^3/uL (130-400) 05/13/24 19:30 Venous Blood Lactate 2.1 mmol/L (0.6-1.4) H 05/13/24 19:30 Complete Metabolic Panel: Sodium 138 mmol/L (136-145) 05/13/24 19:30 Potassium 4.6 mmol/L (3.5-5.1) 05/13/24 19:30 Chloride 102 mmol/L (98-107) 05/13/24 19:30 Carbon Dioxide 26.1 mmol/L (21.0-32.0) 05/13/24 19:30 BUN 18 mg/dL (7-18) 05/13/24 19:30 Creatinine 1.2 mg/dL (0.70-1.30) 05/13/24 19:30 Est GFR (CKD-EPI 2020) 69.66 (mL/min/1.73m2) 05/13/24 19:30 Calcium 9.7 mg/dL (8.5-10.1) 05/13/24 19:30 Albumin 3.8 g/dL (3.4-5.0) 05/13/24 19:30 Glucose 177 mg/dL (74-106) H 05/13/24 19:30 Hemoglobin A1c 5.8 % (4.5-5.7) H 05/11/24 15:25 Liver Function Panel: Alanine Aminotransferase (ALT/SGPT) 41 U/L (16-63) 05/13/24 19:30 Aspartate Amino Transf (AST/SGOT) 29 U/L (15-37) 05/13/24 19:30 Coagulation Panel: No Data to Display Cardiac Panel: No Data to Display Arterial Blood Gas: No Data to Display Venous Blood Gas: No Data to Display Pancreas Panel: No Data to Display Thyroid Panel: No Data to Display Infectious Disease: No Data to Display Blood Cultures: No Data to Display Toxicology Panel: No Data to Display Imaging and Studies Imaging and Studies Study information below may be from another EMR and interpreted by another provider. Please see original notes in EMR for more complete details. EKG Summary: EKG PATIENT NAME: Jimmie Robles UNIT #: [id number] ORDERING PROVIDER: Holli Del Angel PRIMARY CARE PROVIDER: TANA LOPEZ DO DATE/TIME OF SERVICE: 01/07/211640 : 1965 PERFORMING LOCATION: [place] APPROVED REPORT Exam: Resting ECG Reason for Exam: weakness Patient Location: E HR:84 bpm ECG Measurements Heart Rate 84 AXIS [place] 165 P 59 QRSd 109 QRS -33 QT 361 T85 QTc 427 Conclusion Sinus rhythm...normal P axis, V-rate 60- 99 Left axis deviation...QRS axis (-30,-90) <Electronically signed by NORRIS GALINDO MD in [place]> E-Sign Date: 01/07/21 E-Sign Time: 1644 ADDENDUM APPROVED REPORT Exam: Resting ECG Reason for Exam: weakness Patient Location: E HR:84 bpm ECG Measurements Heart Rate 84 AXIS [place] 165 P 59 QRSd 109 QRS -33 QT 361 T85 QTc 427 Conclusion Sinus rhythm...normal P axis, V-rate 60- 99 Left axis deviation...QRS axis (-30,-90) I have reviewed and I agree with the emergency room physician's ECG interpretation. Electronically signed by: <Electronically signed by Myesha Sandhu M.D. in [place]> 01/10/21 1011 Cosigned by: Anesthesia Assessment and Plan Anesthesia History Personal History: Other Family History: No Family History of Anesthesia Complications Exercise Tolerance Exercise Tolerance: Metabolic Equivalents>4 Pertinent Negatives Pertinent Negatives: No Symptoms of GERD Cardiac & Pulmonary Exam Cardiac Exam: Normal S1/S2 Heart Sounds Pulmonary Exam: Clear Bilateral Breath Sounds Implantable Cardiac Device Does patient have a Pacemaker or an ICD?: No Airway Exam Known Difficult Airway: No Mallampati Class: 2 Mouth Opening: Normal (> 3cm) Thyromental Distance: Greater than 3 cm Neck Range of Motion: Full ROM Neck Circumference: Normal Teeth Condition: Normal Dentition ASA Classification ASA Score: ASA 3 Emergency Case?: No NPO Status NPO Status: NPO Clears >2 hours, Solids >8 hours Anesthesia Plan Resuscitation Status: Full Code Anesthesia Technique: MAC Anesthesia Airway Planned: Natural Airway Monitors Used: Standard Monitors Preoperative Comments:: Discussed plan for MKO with PIV as backup
[2024-06-05 07:31] VITALS: BMI 27.5
[2024-06-05] MEDS: Lidocaine 1% Pres-Free 5 ML VIAL (07:38)
[2024-06-05] MEDS: Phenylephrine/Lidocaine (15/10) MG/ML 1 ML VIAL (07:40)
[2024-06-05] MEDS: Trypan Blue 0.06% 0.5 ML SYR (07:41)
[2024-06-05] MEDS: Povidone-Iodine Ophth 30 ML BTL (07:41)
[2024-06-05] MEDS: Duovisc Viscoelastic System EACH 1 EACH (07:41)
[2024-06-05] MEDS: Balanced Salt Soln.-PLUS 500 ML BAG OP (07:42)
[2024-06-05] MEDS: Prednisolone 1%, Moxifloxacin 0.5%, Bromfenac 0.09% 5.6ML BTL OD (07:42)
[2024-06-05] MEDS: Tetracaine 0.5% 4 ML BTL OD (07:43)
--- NOTE | 2024-06-05 08:07 | PDOC.DSDIS_ITS ---
Date of service: 06/05/24 Discharge Plan Disposition Patient Disposition: Home Discharge Details Attending Provider: Patrick Arizmendi Primary Care Provider: Zeeshan Singh Home Meds and New Rx's Prescriptions: No Action acetaminophen 500 mg tablet 1,000 mg PO Q6H PRN PRN (Reason: pain) (DME) Dexcom G7 Strike On Machine Operator Misc See Rx Instructions .Route Qty: 1 6RF Rx Instructions: To keep HbA1c less than 7%, on insulin, use with meals and prn (DME) Dexcom G7 Sensor Device See Rx Instructions .Route Qty: 1 6RF Rx Instructions: To keep HbA1c less than 7%, check with meals and prn (DME) L BKA prosthetic limb See Rx Instructions .Route .MEDSUPPLY Qty: 1 0RF Rx Instructions: As directed (DME) Prosthetic accessories Qty: 1 0RF Dose Instruction: As directed Rx Instructions: As directed cholecalciferol (vitamin D3) 25 mcg (1,000 unit) capsule 25 mcg PO DAILY diphenhydramine HCl [Benadryl Allergy] 25 mg tablet 75 mg PO QHS Neuriva Plus 0.85 mg-200 mcg-1.2 mcg tablet,chewable 1 tab PO DAILY Patient Comments: 1 tablet daily Alive Men's 50 Plus Multivit 120 mcg-150 mcg -50 mg tablet,chewable 2 tab PO DAILY Ocuvite Adult 50 Plus 250 mg (90 mg-160 mg) capsule 1 cap PO DAILY finasteride 5 mg tablet 5 mg PO DAILY Qty: 90 3RF lurasidone [Latuda] 40 mg tablet 40 mg PO DAILY Qty: 90 3RF Rx Instructions: must administer with food (at least 350 calories) lisinopril 10 mg tablet 10 mg PO DAILY Qty: 90 3RF trazodone 100 mg tablet See Rx Instructions .ROUTE .COMPLEX Qty: 90 3RF Dose Instruction: Take 1 tablet by mouth at bedtime. Rx Instructions: Take 1 tablet by mouth at bedtime. gabapentin 600 mg tablet See Rx Instructions PO DIRECTED MDD 3000 mg Qty: 450 3RF Rx Instructions: 1200mg am-600mg noon- 1200mg pm PO as directed; omeprazole 20 mg capsule,delayed release(DR/EC) See Rx Instructions .ROUTE .COMPLEX Qty: 90 1RF Dose Instruction: Take 1 capsule by mouth daily. Rx Instructions: Take 1 capsule by mouth daily. metformin 1,000 mg tablet 1,000 mg PO BID@0800,1700 Qty: 180 1RF Rx Instructions: DX: DIABETES insulin aspart U-100 [Novolog FlexPen U-100 Insulin] 100 unit/mL (3 mL) insulin pen See Rx Instructions Sub-Q AC MDD 54 units Qty: 15 11RF Rx Instructions: Subcut before meals; For DM E11.8 to maintain A1C <8 Units as directed by sliding scale (DME) Diabetic shoes Qty: 2 0RF Rx Instructions: As directed, one pair insulin degludec [Tresiba FlexTouch U-100] 100 unit/mL (3 mL) insulin pen See Rx Instructions .ROUTE .COMPLEX Qty: 15 4RF Dose Instruction: Inject 40 units under the skin twice daily. Max daily dose 80 units. Rx Instructions: Inject 40 units under the skin twice daily. Max daily dose 80 units. (DME) pen needle, diabetic [BD Ultra-Fine Paige Pen Needle] 32 gauge x 5/32 needle 1 ea Miscellaneous 5X/DAY Qty: 100 11RF Rx Instructions: PLEASE DISPENSE QS 3 MONTHS FOR USE WITH INSULINS and victoza (max 5/day). nortriptyline 75 mg capsule 75 mg PO QHS Qty: 90 3RF ibuprofen 600 mg tablet 600 mg PO TID PRNQty: 30 3RF Krill Oil ([place] 3 and 6) 1,500-165-67.5 mg Capsule 1 cap PO DIRECTED Discharge Instructions Stand Alone Forms: DSU Post-Op CataractKaran (DSU) Discharge Orders Discharge Orders: Discharge Order (Routine); Ordered 06/05/24 Ordered By: Patrick Arizmendi DS: Diagnosis Discharge Diagnosis (1) Posterior subcapsular age-related cataract, right eye: Status: Resolved (2) Nuclear age-related cataract, right eye: Status: Resolved
[2024-06-05 08:08] VITALS: BP 115/70; PULSE 80; RESP 16; TEMP 36.3; O2SAT 94
--- NOTE | 2024-06-05 08:08 | W.PM.OP ---
Operative Note Operative Note PRE-OP DIAGNOSIS: Nuclear/posterior subcapsular cataract, right eye POST-OP DIAGNOSIS: same PROCEDURE: Cataract extraction using phacoemulsification with intraocular lens implant, right eye SURGEON: Patrick Arizmendi ANESTHESIA TYPE: Local By Surgeon and MAC Refer to Anesthesia Record ESTIMATED BLOOD LOSS: 0 PATHOLOGY: none sent COMPLICATIONS: None Patient was transported to: same day Patient's condition: stable Implants: Adonis Clareon [id number] Indications: Progressive decreased vision due to cataract, right eye Procedure Description: CATARACT SURGERY OPERATIVE REPORT PREOPERATIVE DIAGNOSIS: Dense nuclear/posterior subcapsular cataract, right eye POSTOPERATIVE DIAGNOSIS: Same OPERATION: Cataract extraction using phacoemulsification with posterior chamber intraocular lens implant, right eye. IOL: IOL Veterinary Physiologist/Model: Adonis Clareon [id number] IOL Power: + 19.0 diopters IOL Serial Number: [id number] Optic Diameter: 6.0mm Haptic/Overall Diameter: 13.0mm PHACO INFO: Adonis Forever His Transporturion Vision System with OZil and Active Fluidics Cumulative Dispersed Energy (CDE): 19.02 seconds SURGEON: Patrick Arizmendi MD, HELENA ANESTHESIA: Monitored Anesthesia Care (MAC), with local sub-tenon's anesthetic infiltration COMPLICATIONS: None SPECIMENS: None INDICATIONS FOR PROCEDURE: The patient is a 58-year-old male with history of diminished visual acuity in his right eye secondary to the development of dense nuclear/posterior subcapsular cataract. He is significantly symptomatic that he desires cataract surgery in attempt to improve and maximize his vision. The option of cataract surgery was offered to the patient and he wished to proceed. PROCEDURE: The correct surgical eye was identified and marked as the right eye and the pupil was dilated in the preoperative area using mydriatics and cycloplegics. The dilated pupil size was 6.5 mm. Oral sedation was administered in the form of an Imprimis MKO Melt (midazolam 3mg/ketamine 25mg/ondansetron 2mg). The patient was brought to the operating room where cardiopulmonary monitoring was instituted and surgical time-out was performed, confirming the correct operative eye and IOL power. Topical anesthesia was administered and ophthalmic povidone-iodine 5% was instilled into the conjunctival fornices. The deb-ocular area was prepped with Betadine 10% solution and draped in the usual sterile fashion for intraocular surgery, including an aperture drape. A Tegaderm transparent film dressing was cut in half and used to cover the lashes and lid margins. Care was taken to sequester the lashes and lid margins under the Tegaderm dressing. A lid speculum was placed between the lids of the operative eye and the Adonis LuxOR Revalia operating microscope was maneuvered into position. Vladislav scissors were then used to make a conjunctival buttonhole approximately 6mm posterior to the limbus in the inferonasal quadrant. Blunt dissection was carried out to expose bare sclera, and a blunt-tipped sub-tenon?s anesthesia cannula was introduced and passed posteriorly along the globe where non-preserved plain lidocaine was injected into posterior sub-Tenon?s space. A sideport knife was used to make a paracentesis port. VisionBlue was injected into the anterior chamber and allowed to sit for 30 seconds. Intraocular phenylephrine/lidocaine was injected into the anterior chamber. The anterior chamber was then filled with viscoelastic. A keratome knife was used to construct a two--plane clear corneal tunnel extending 2.0mm into clear cornea. A flap was raised on the anterior capsule and capsulorhexis forceps were used to complete a continuous curvilinear capsulorhexis of 5.0 mm. Balanced salt solution was then used to perform cortical cleaving hydrodissection and nuclear hydrodelineation until the lens could be freely rotated within the capsular bag. The lens nucleus was then disassembled and removed within the capsular bag and iris plane using phacoemulsification. Residual cortical material was removed using the I/A handpiece. The posterior capsule was carefully polished to remove as much residual lens epithelial cells as safely possible. The capsular bag was then inflated and the anterior chamber deepened with cohesive viscoelastic. The lens implant described above was inserted into the capsular bag using the Adonis Autonome Injector. A Kuglen hook was used to dial the IOL into position. Residual viscoelastic was then removed first from posterior to the IOL, then from the anterior chamber using the I/A handpiece. The lens implant was noted to center nicely within the capsular bag. The incisions were stromally hydrated, and the anterior chamber was reformed using BSS. Then 0.5cc of moxifloxacin 1.0mg/ml were injected into the capsular bag and anterior chamber. The incisions were checked with a Weck spear and found to be secure. Several drops of ophthalmic povidone-iodine 5% were then applied to the eye followed by two drops of combination steroid/NSAID/antibiotic solution. The drapes were removed and a clear plastic protective eye shield was placed over the eye. The patient was then returned to Same Day Surgery in stable condition. Date of Procedure: 06/05/24
[2024-06-05 08:29] VITALS: BP 107/77; PULSE 79; RESP 16; TEMP 36.4; O2SAT 95
--- NOTE | 2024-06-05 08:29 | W.ANESPOSTOP ---
Postoperative Evaluation Date, Time and Location Date Performed: 06/05/24 Time Performed: 08:20 Patient Location: Day Surgery Unit Vital Signs Most Recent Imported Vital Signs: Most Recent Vital Signs Temp Pulse Resp BP Pulse Ox 36.3 C L 80 16 115/70 94 06/05/24 08:08 06/05/24 08:08 06/05/24 08:08 06/05/24 08:08 06/05/24 08:08 Pain Score Most Recent Pain Score: Most Recent Pain Score Pain Level 0 06/05/24 06:05 Assessment Mental Status: Awake (Alert & Oriented to Patient Baseline) Airway and Respiratory Function: Patent airway with normal (patient baseline) respiratory exam Cardiovascular Function: Hemodynamically Stable Hydration Status: Adequately Hydrated Nausea & Vomiting: No Nausea or Vomiting Pain: Pt. Denies Any Pain Peripheral Nerve Block: Other (Local by Dr. Arizmendi)
== END 2024-06-05 08:45 | disposition home or self-care (01) ==
LOC: SUR 05:56
PROVIDERS: PCP Family Medicine; Visit Provider Ophthalmology
PROC: (CPT 66984; principal; 2024-06-05 07:30)
DX: H25.041 Posterior subcapsular polar age-related cataract, right eye (principal); H25.11 Age-related nuclear cataract, right eye; E11.9 Type 2 diabetes mellitus without complications
CPT/HCPCS: 66984; 00123; V2632; J2003

== ENCOUNTER 2024-11-02 09:48 | Outpatient (CLI) | payer MEDICARE, MEDICAID, SELFPAY ==
[2024-11-02 10:26] LABS: Microalb ug/mg Crea 37.3 ug/mg Cr
[2024-11-02 10:28] LABS: Hemoglobin A1C 6.4 % (<5.7)
[2024-11-02 10:31] LABS: Cholesterol 196 mg/dL (<200); HDL Cholesterol 36 mg/dL (>or=40); Triglyceride 411 mg/dL (<150)
[2024-11-02 10:46] LABS: LDL CHOLESTEROL 98 mg/dL (<100)
== END 2024-11-02 09:49 | disposition home or self-care (01) ==
LOC: LBO 09:49
PROVIDERS: PCP Family Medicine; Visit Provider Emergency Medicine
DX: E78.5 Hyperlipidemia, unspecified (principal); E11.8 Type 2 diabetes mellitus with unspecified complications; Z79.4 Long term (current) use of insulin; E11.9 Type 2 diabetes mellitus without complications
CPT/HCPCS: 36415; 80061; 83721; 82043; 82570; 83036

== ENCOUNTER 2025-02-20 16:00 | Emergency (ER) | payer MEDICARE, MEDICAID, SELFPAY ==
[2025-02-20] VITALS (25 sets, daily range): BP systolic 119–184; BP diastolic 57–104; PULSE 84–101; RESP 12–22; O2SAT 89–95
--- NOTE | 2025-02-20 16:00 | RT.EKG_ITS ---
APPROVED REPORT Exam: Resting ECG Reason for Exam: chest pain/SOB Patient Location: E HR:88 bpm ECG Measurements Heart Rate 88 AXIS [place] 169 P 45 QRSd 103 QRS -15 QT 350 T 87 QTc 424 Conclusion Sinus rhythm...normal P axis, V-rate 60- 99 Incomplete RBBB and LAFB...axis(240,-40), S>R II III aVF Low voltage, precordial leads...precordial leads <1.0mV No STEMI
--- NOTE | 2025-02-20 16:00 | DI.CT_ITS ---
Exam(s) CT THORAX ABD/PEL CTA EXAM: CT THORAX ABD/PEL CTA CLINICAL HISTORY: CP radiating to back, r/o dissection. TECHNIQUE: Imaging Protocol: Axial CT angiography was performed with multi- slice acquisition and multi-planar and/or 3D reconstructions. CONTRAST MATERIAL: Intravenous: Omnipaque 350 Contrast volume:99 ml Oral: / no COMPARISON: CT CT CHEST LUNG CANCER SCREEN from 06/10/2023 FINDINGS: CHEST: Pulmonary Arteries: No evidence of filling defect to suggest pulmonary emboli. Tracheobronchial tree: Patent where visualized. Mediastinum and Ale: No dominant adenopathy. There is a small amount of fluid in the esophagus could indicate reflux. No wall thickening is visible. Pulmonary parenchyma: No consolidation or dominant measurable mass. Mild emphysematous changes in the lung apices right greater than left. Pleura: No effusion or pneumothorax. Heart: The heart is not dilated. Moderate coronary artery calcifications are seen. Aorta: Thoracic aorta non-dilated. No significant atherosclerotic changes. Bones: Normal. Tubes, Catheters, and Lines: ABDOMEN AND PELVIS: Abdomen: Celiac axis/mesenteric arteries: No evidence of occlusion or significant stenosis. Renal Arteries: No evidence of occlusion or significant stenosis. There is a single renal artery perfusing each kidney. Aorta: No evidence of occlusion or significant stenosis. No aneurysm or dissection. Pelvis: Iliac Arteries: No evidence of occlusion or significant stenosis. Common Femoral Arteries: No evidence of occlusion or significant stenosis. ABDOMEN: Liver: Ngde-qu-tiouhwuy fatty infiltration. No measurable mass. Portal, Superior Mesenteric, and Splenic Veins: Unremarkable. Gallbladder and Biliary Tract: No radiodense calculus or dilation. Pancreas: Somewhat atrophic. No abnormal calcifications or inflammatory process. Spleen: Mildly enlarged with length of 15 cm. Adrenals: No masses seen. Kidneys: Normal size, contour and axis. No radiodense stones or obstructive uropathy. Tiny bilateral cysts. No suspicious masses seen. Bowel: The stomach is distended with food and fluid no obstruction or bowel wall thickening. Appendix is unremarkable. Scattered diverticulosis. Peritoneal Cavity: No ascites, collection or mesenteric inflammatory response. Lymph Nodes: Within normal limits. Bones: Right hip prosthesis creates artifact. Scoliosis in the spine. Degenerative changes causing central canal stenosis and neural foraminal narrowing at multiple levels.. Soft Tissues: Bilateral fat containing inguinal hernias. Prior left abdominal wall hernia repair. Bladder: Symmetric distention, no gross wall thickening. Reproductive Organs: Unremarkable as visualized. Lymph Nodes: Within normal limits. IMPRESSION: No evidence of aortic aneurysm or dissection. There are mild atherosclerotic changes. No acute abnormality in the chest, abdomen or pelvis. The preliminary [facility] report was reviewed. RADIATION DOSE DELIVERED: Total DLP DATA REPOSITORY: All CT scans at this facility are submitted to the National Radiology Data Registry (NRDR) Dose Index Registry (DIR) with the [employer] (ACR). RADIATION OPTIMIZATION: All CT scans at this facility use at least one of these dose optimization techniques: automated exposure control; mA and/or kV adjustment per patient size (includes targeted exams where dose is matched to clinical indication); or iterative reconstruction.
--- NOTE | 2025-02-20 16:28 | W.ED.GENAD ---
Discharge Plan Disposition Patient Disposition: Home Condition: Good Discharge Details Clinical Impression: Chest pain, Hypomagnesemia, Splenomegaly, Esophagitis Primary Care Provider: Zeeshan Singh ED Provider: Kim Reyes Home Meds and New Rx's Prescriptions: No Action acetaminophen 500 mg tablet 1,000 mg PO Q6H PRN PRN (Reason: pain) (DME) Dexcom G7 Descriptive Catalog Librarian Misc See Rx Instructions .Route Qty: 1 6RF Rx Instructions: To keep HbA1c less than 7%, on insulin, use with meals and prn (DME) Dexcom G7 Sensor Device See Rx Instructions .Route Qty: 1 6RF Rx Instructions: To keep HbA1c less than 7%, check with meals and prn (DME) L BKA prosthetic limb See Rx Instructions .Route .MEDSUPPLY Qty: 1 0RF Rx Instructions: As directed (DME) Prosthetic accessories Qty: 1 0RF Dose Instruction: As directed Rx Instructions: As directed atorvastatin [Lipitor] 40 mg tablet 40 mg PO QHS Qty: 90 3RF melatonin 10 mg capsule 20 mg PO QHS cholecalciferol (vitamin D3) 25 mcg (1,000 unit) capsule 25 mcg PO DAILY Neuriva Plus 0.85 mg-200 mcg-1.2 mcg tablet,chewable 1 tab PO DAILY Patient Comments: 1 tablet daily Alive Men's 50 Plus Multivit 120 mcg-150 mcg -50 mg tablet,chewable 2 tab PO DAILY finasteride 5 mg tablet 5 mg PO DAILY Qty: 90 3RF riboflavin (vitamin B2) 50 mg tablet 50 mg PO DAILY Patient Comments: Patient unsure of exact dose coenzyme [id number] E 100-100 mg-unit capsule 1 cap PO DAILY Patient Comments: 1 cap daily ferrous gluconate 225 mg (27 mg iron) tablet 225 mg PO DAILY Patient Comments: Patient unsure of exact strength omega 2-cjz-aou-fish oil [Fish Oil] 300-1,000 mg capsule 1 cap PO DAILY ascorbic acid (vitamin C) 125 mg capsule 125 mg PO DAILY Patient Comments: Patient unsure of exact dose (DME) Diabetic shoes Qty: 2 0RF Rx Instructions: As directed, one pair lurasidone [Latuda] 40 mg tablet 40 mg PO DAILY Qty: 90 3RF Rx Instructions: must administer with food (at least 350 calories) omeprazole 20 mg capsule,delayed release(DR/EC) See Rx Instructions .ROUTE .COMPLEX Qty: 90 3RF Dose Instruction: Take 1 capsule by mouth daily. Rx Instructions: Take 1 capsule by mouth daily. lisinopril 10 mg tablet 10 mg PO DAILY Qty: 90 3RF metformin 1,000 mg tablet 1,000 mg PO BID@0800,1700 Qty: 180 3RF trazodone 100 mg tablet See Rx Instructions .ROUTE .COMPLEX Qty: 90 0RF Dose Instruction: Take 1 tablet by mouth at bedtime. Rx Instructions: Take 1 tablet by mouth at bedtime. gabapentin 600 mg tablet See Rx Instructions PO DIRECTED MDD 3000 mg Qty: 450 3RF Rx Instructions: 1200mg am-600mg noon- 1200mg pm PO as directed; (DME) pen needle, diabetic [Paige Pen Needle] 32 gauge x 5/32 needle See Rx Instructions .ROUTE .COMPLEX Qty: 1200 10RF Dose Instruction: Use with insulins and Victoza, max 5 per day. Rx Instructions: Use with insulins and Victoza, max 5 per day. insulin degludec [Tresiba FlexTouch U-100] 100 unit/mL (3 mL) insulin pen See Rx Instructions .ROUTE .COMPLEX Qty: 15 6RF Dose Instruction: Inject 40 units under the skin twice daily. Max daily dose 80 units. Rx Instructions: Inject 40 units under the skin twice daily. Max daily dose 80 units. insulin aspart U-100 [Novolog FlexPen U-100 Insulin] 100 unit/mL (3 mL) insulin pen See Rx Instructions Sub-Q AC MDD 54 units Qty: 15 0RF Rx Instructions: Subcut before meals; For DM E11.8 to maintain A1C <8 Units as directed by sliding scale nortriptyline 75 mg capsule 75 mg PO QHS Qty: 90 3RF Discharge Instructions Instructions: Low Magnesium Level Additional Instructions: Please call your primary care provider's office first thing Saturday morning to schedule follow-up appointment Your workup today was reassuring. The cause of your chest pain today remains unclear and requires further evaluation in an outpatient basis. Incidental findings on your scan were noted, including esophagitis and enlarged spleen (splenomegaly). There are things that you should have monitored by your primary care provider. I recommend that you continue to keep good control of your blood sugar.. Return to emergency care if you develop new chest pain, difficulty breathing, episodes of passing out, or if you are very worried and need to be rechecked again immediately Referrals: Zeeshan Singh DO [Primary Care Provider, Medicine] HPI General Date/Time Provider Initiated Documentation: 02/20/25 16:03. HPI Narrative: Jimmie is a 59-year-old male who presents to the emergency department today for evaluation of sudden onset of stabbing sternal chest pain that radiates to the back where it is scribed as a dull pain accompanied by dizziness and paresthesias to the left arm. This started approximately 20 minutes prior to arrival to ED. Reports sudden onset of numbness in left arm/hand, chest pain radiating to back, and pulling sensation to sternum upon inhalation. Also reports dizziness without nausea or sweating. Denies recent fever/chills, congestion, sore throat, cough, nausea/vomiting, acid reflux symptoms, abdominal pain, change in bowel or bladder function, pedal edema. Denies history of previous symptoms similar to this. No history of [place], connective tissue disorders, or known family history of cardiac disease (patient is adopted). PMH significant for T2DM (currently poorly controlled, not have access to glucometer for 3 weeks, blood sugars recently have been in 250s range), HTN, HLD, peripheral neuropathy, GERD (takes omeprazole) Related Data Home Medications ?Medication ?Instructions ?Recorded ?Confirmed acetaminophen 500 mg tablet 1,000 mg PO Q6H PRN PRN pain 08/30/20 02/20/25 cholecalciferol (vitamin D3) 25 25 mcg PO DAILY 08/20/22 02/20/25 mcg (1,000 unit) capsule blood-glucose sensor (Dexcom G7 #1 ea 12/25/22 02/20/25 Sensor device) blood-glucose,industrial fabric cutter,cont #1 ea 12/25/22 02/20/25 (Dexcom G7 Descriptive Catalog Librarian) L BKA prosthetic limb #1 ea 11/21/23 02/20/25 Prosthetic accessories #1 ea 11/21/23 02/20/25 Diabetic shoes #2 ea 03/18/24 02/20/25 B6 0.85 mg-folic 200 1 tab PO DAILY 05/11/24 02/20/25 [id number]-utudpy-nbpzwrlqbgso oral chewable tablet (Neuriva Plus) finasteride 5 mg tablet 5 mg PO DAILY #90 tabs 05/11/24 02/20/25 bccgrcdv-ujg-fllwc 120 mcg-lutein 2 tab PO DAILY Diabetic formula 05/11/24 02/20/25 150 mcg-herb 50 mg chewable tablet (Alive Men's 50 Plus Multivitamin) lisinopril 10 mg tablet 10 mg PO DAILY #90 tab-caps 06/08/24 02/20/25 lurasidone 40 mg tablet (Latuda) 40 mg PO DAILY #90 tabs 06/08/24 02/20/25 omeprazole 20 mg capsule,delayed See Rx Instructions .Route 06/08/24 02/20/25 release .COMPLEX #90 caps metformin 1,000 mg tablet 1,000 mg PO BID@0800,1700 #180 tabs 07/09/24 02/20/25 ascorbic acid (vitamin C) 125 mg 125 mg PO DAILY 10/30/24 02/20/25 capsule coenzyme N00-rbdtogd E 100 mg-100 1 cap PO DAILY 10/30/24 02/20/25 unit capsule ferrous gluconate 225 mg (27 mg 225 mg PO DAILY 10/30/24 02/20/25 iron) tablet omega 8-ryk-ewm-fish oil 300 1 cap PO DAILY 10/30/24 02/20/25 mg-1,000 mg capsule (Fish Oil) riboflavin (vitamin B2) 50 mg 50 mg PO DAILY 10/30/24 02/20/25 tablet trazodone 100 mg tablet See Rx Instructions .Route 11/05/24 02/20/25 .COMPLEX #90 tabs atorvastatin 40 mg tablet (Lipitor) 40 mg PO QHS #90 tabs 11/19/24 02/20/25 gabapentin 600 mg tablet See Rx Instructions PO DIRECTED 11/24/24 02/20/25 #450 tabs pen needle, diabetic 32 gauge x #1,200 ea 12/04/24 02/20/2532 (Paige Pen Needle) Tresiba FlexTouch U-100 100 See Rx Instructions .Route 12/07/24 02/20/25 unit/mL (3 mL) subcutaneous pen .COMPLEX #15 mL (insulin degludec) insulin aspart U-100 100 unit/mL See Rx Instructions subcut AC #15 12/14/24 02/20/25 (3 mL) subcutaneous pen (Novolog mL FlexPen U-100 Insulin aspart) nortriptyline 75 mg capsule 75 mg PO QHS #90 caps 01/26/25 02/20/25 melatonin 10 mg capsule 20 mg PO QHS 02/18/25 02/20/25 Previous Rx's ?Medication ?Instructions ?Recorded blood-glucose sensor (Dexcom G7 #1 ea 12/25/22 Sensor device) blood-glucose,industrial fabric cutter,cont #1 ea 12/25/22 (Dexcom G7 Descriptive Catalog Librarian) L BKA prosthetic limb #1 ea 11/21/23 Prosthetic accessories #1 ea 11/21/23 Diabetic shoes #2 ea 03/18/24 finasteride 5 mg tablet 5 mg PO DAILY #90 tabs 05/11/24 lisinopril 10 mg tablet 10 mg PO DAILY #90 tab-caps 06/08/24 lurasidone 40 mg tablet (Latuda) 40 mg PO DAILY #90 tabs 06/08/24 omeprazole 20 mg capsule,delayed See Rx Instructions .Route 06/08/24 release .COMPLEX #90 caps metformin 1,000 mg tablet 1,000 mg PO BID@0800,1700 #180 tabs 07/09/24 trazodone 100 mg tablet See Rx Instructions .Route 11/05/24 .COMPLEX #90 tabs atorvastatin 40 mg tablet (Lipitor) 40 mg PO QHS #90 tabs 11/19/24 gabapentin 600 mg tablet See Rx Instructions PO DIRECTED 11/24/24 #450 tabs pen needle, diabetic 32 gauge x #1,200 ea 12/04/24 5/32 (Paige Pen Needle) Tresiba FlexTouch U-100 100 See Rx Instructions .Route 12/07/24 unit/mL (3 mL) subcutaneous pen .COMPLEX #15 mL (insulin degludec) insulin aspart U-100 100 unit/mL See Rx Instructions subcut AC #15 12/14/24 (3 mL) subcutaneous pen (Novolog mL FlexPen U-100 Insulin aspart) nortriptyline 75 mg capsule 75 mg PO QHS #90 caps 01/26/25 Allergies Allergy/AdvReac Type Severity Reaction Status Date / Time No Known Drug Allergies Allergy Other (See Verified 02/20/25 16:08 Comment) General Stated Complaint: Chest Pain BRENTON: 3 Exam Narrative Exam Narrative: General Appearance: Normal. Alert and oriented, no acute distress Vital signs: Within normal limits, mild HTN noted, BP 145/72. Respiratory: Easy work of breathing, lung sounds clear to auscultation bilaterally. Cardiovascular: Regular rate and rhythm. Normal heart sounds, pulses intact bilaterally. No pedal edema to right foot Abdomen: Soft, nondistended, nontender to palpation, no pulsatile masses. Extremities: Left BKA noted, wears prosthetic. No pedal edema noted to right ankle. Skin: Warm and dry, no rash. Neurological: Full ROM and sensation intact, tingling in left arm and hands. Psychiatric: Normal. Course Vital Signs Vital signs: Vital Signs Pulse 94 H 02/20/25 16:05 Respiratory Rate 22 02/20/25 16:05 Blood Pressure 184/102 H 02/20/25 16:05 Pulse Oximetry 95 02/20/25 16:05 Pulse 94 H 02/20/25 16:05 Respiratory Rate 22 02/20/25 16:05 Blood Pressure 184/102 H 02/20/25 16:05 Blood Pressure Position Supine 02/20/25 16:05 Pulse Oximetry 95 02/20/25 16:05 Oxygen Delivery Method Room Air 02/20/25 16:05 Oxygen Flow Rate 0 02/20/25 16:05 Medical Decision Making Initial Assessment: 59-year-old male with chest pain radiating to back, numbness in left arm, and dizziness. Pain started 20 minutes before arrival. No history of similar pain, recent illness, or gastrointestinal symptoms. History of smoking, quit several years ago. Differential Diagnosis: ACS, aortic dissection, nerve impingement, GERD, muscle spasm, occult pneumonia, electrolyte imbalance. Heart score 5, indicating moderate risk of MACE ED Course: - Full cardiac workup initiated - Nitroglycerin and chewable aspirin administered, full resolution of symptoms with nitroglycerin - Magnesium sulfate 2 g IV given for mag replenishment I independently interpreted the following tests: EKG notable for sinus rhythm rate 88, incomplete RBBB and LAFB, normal QTc, no changes consistent with acute ischemia. CBC, CMP, lipase, BNP, serial troponins (5,5) all reassuring. Hypomagnesemia noted, 1.3 (lower than previous value of 1.5) The abdomen/pelvis reassuring, fluid throughout the thoracic esophagus suggestive of GERD. Splenomegaly also noted Final Assessment: Workup today reassuring, unclear etiology of chest pain, however symptoms fully resolved with nitroglycerin and magnesium, possibly related to Trillat imbalance or GI etiology. Recommend further workup with PCP outpatient, including magnesium levels, endoscopy, and cardiac workup such as echo/stress test. Clinical Impression: - Chest pain - Hypomagnesemia - Splenomegaly Reviewed discharge instructions with patient, including importance of follow-up with PCP and red flags indicating need for return to emergency care Disposition: - Follow-Up: PCP for further outpatient evaluation/workup Patient consented to the use of BRANDY Imaging Data Radiologic Study: Radiologist's impression: PROCEDURE INFORMATION: Exam: CTA Chest With Contrast CTA Abdomen and Pelvis With Contrast Exam date and time: 02/20/2025 5:07 PM Age: 59 years old Clinical indication: Abdominal pain; Other: Radiating to back TECHNIQUE: Imaging protocol: Computed tomographic angiography of the chest with contrast. Exam focused on the arteries. Computed tomographic angiography of the abdomen and pelvis with contrast. Exam focused on the arteries. 3D rendering (Not supervised by radiologist): MIP and/or 3D reconstructed images were created by the technologist. Contrast material: OMNI 350; Contrast volume: 100 ml; Contrast route: INTRAVENOUS (IV); COMPARISON: CT CHEST LUNG CANCER SCREEN 06/10/2023 7:56 AM FINDINGS: VASCULATURE: Pulmonary arteries: No pulmonary embolism identified. Aorta: No thoracic or abdominal aortic aneurysm or dissection. Celiac and mesenteric arteries: Celiac artery, superior mesenteric artery, and inferior mesenteric artery widely patent. Renal arteries: Left and right renal arteries widely patent. Right iliac arteries: Right common iliac, internal iliac, and external iliac arteries widely patent. Right femoral/popliteal arteries: Right common femoral and visualized proximal right superficial femoral arteries widely patent. Left iliac arteries: Left common iliac, internal iliac, and external iliac arteries widely patent. Left femoral/popliteal arteries: Left common femoral and visualized proximal left superficial femoral arteries widely patent. Thyroid: Thyroid gland partially excluded from view and partially obscured by artifact but normal in size through its visualized portion. Suggestion of a 1.4 cm dominant indeterminate hypoattenuating left thyroid lesion on image 10 of series 15, partially obscured by artifact and not well evaluated but possibly a colloid cyst or hypoattenuating nodule. CHEST: Lungs: No pulmonary consolidation. Pleural spaces: No pleural effusion or pneumothorax. Mild emphysematous changes in the upper lung zones, more prominent on the right. Heart: Normal-sized heart. Esophagus: Fluid in the mid-distal thoracic esophagus suggesting gastroesophageal reflux. ABDOMEN AND PELVIS: Liver: Diffuse fatty infiltration of the liver. Gallbladder and biliary ducts: Gallbladder partially collapsed. No calcified gallstones seen. No biliary dilatation. Pancreas: Moderate atrophy of the pancreas. Spleen: Splenomegaly, 16 cm craniocaudal dimension. Adrenal glands: Normal appearing adrenal glands. Kidneys and ureters: Atrophic changes in the kidneys. Small indeterminate hypoattenuating renal lesions, not well characterized but statistically most likely renal cysts. No hydronephrosis. No obstructing ureteral stones demonstrated. Stomach and bowel: Stomach moderately distended with ingested material and fluid. No small bowel dilatation to suggest obstruction. Scattered colonic diverticula but no evidence of diverticulitis or colitis. Appendix: Normal appendix. Intraperitoneal space: No gross ascites or free air. Urinary bladder: Urinary bladder partially obscured by artifact but grossly unremarkable, as seen. Reproductive: Prostate gland and seminal vesicles partially obscured by artifact and not well evaluated but grossly normal in size. Lymph nodes: No pathologically enlarged mediastinal or hilar lymph nodes. No pathologically enlarged mesenteric, retroperitoneal, or pelvic sidewall lymph nodes. Bones/joints: No acute fracture seen among the bones of the chest, abdomen, or pelvis. Prior right hip arthroplasty with streak artifact created by the metallic prosthesis partially obscuring the lower pelvis. Mild S-shaped spinal curvature. Spinal degenerative change with discogenic degeneration, Schmorl's nodes, vacuum disc deformities, and anterior osteophytes at multiple levels. Posterior osteophytic ridging at several lower lumbar levels. Significant central canal and neural foraminal narrowing at several lumbar levels. Soft tissues: No gross soft tissue mass or fluid collection seen in the chest wall. Mild diastasis recti. Small fat containing bilateral inguinal region hernias, larger on the left. Apparent prior repair of the left anterolateral abdominal wall. Correlation with surgical history recommended. IMPRESSION: 1. No thoracic or abdominal aortic aneurysm or dissection. 2. Fluid throughout the mid-distal thoracic esophagus suggesting gastroesophageal reflux. 3. Splenomegaly, 16.5 cm craniocaudal dimension. 4. Diffuse fatty infiltration of the liver. 5. No acute bowel pathology demonstrated. Quality:SDOH Health Related Social Needs: Health related social needs details Patient declined PFSH All Active Problems (Updated 06/05/24 @ 08:08 by Patrick Arizmendi MD) Esophagitis (Acute) Splenomegaly (Acute) Hypomagnesemia (Acute) Chest pain (Acute) Type 2 diabetes mellitus (Chronic) Diabetic foot ulcer (Acute) BPH w urinary obs/LUTS (Acute) Mechanical dysphagia (Acute) Dupuytren's contracture of left hand (Acute) Right carpal tunnel syndrome (Acute) Left carpal tunnel syndrome (Acute) Type 2 diabetes mellitus with complication, with long-term current use of insulin (Chronic) Phantom limb pain (Chronic 02/01/17) LLE Insomnia, unspecified (Chronic 02/01/17) History of substance abuse (Chronic 02/18/17) Multiple substances [address] [place] [id number] Gastroesophageal reflux disease without esophagitis (Chronic 02/01/17) Diabetic polyneuropathy associated with diabetes mellitus due to underlying condition (Chronic 02/18/17) RX Gabapentin Bipolar affective disorder (Chronic 02/01/17) NKHS Arthritis (Chronic 02/01/17) Back 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 RLE toe amputations. Family History Other Adopted Social History (Updated 05/31/23 @ 10:38 by Pamela Cano CMA) Smoking/Tobacco Use Status: Former Tobacco Use Quit Date: 05/06/12 Second Hand Exposure: No Smoking risk assessment performed?: Yes Alcohol Intake: former Drug use: Current Sobriety Substance use type: former substance user Adopted: Yes Caregiver/Support person: No Foster care: Yes Household members: children Housing: apartment Number of Children: 5 number of grandchildren: 3 Communication Needs: None Education Level: master's degree Do you need help understanding health information?: Never current occupation: Disabled Pets and animals: Yes (2) Pets and animals: cat(s) Sexually active: No Do you think of yourself as: straight/heterosexual Current gender identity: male What is your relationship status?: How often do you talk on the phone with friends or family?: never How often do you get together with friends or relatives?: never Do you belong to any clubs or organized social groups?: no Panel score (0-1 are the most socially isolated patients): 0 NHANES result reviewed/action taken: No Duration: < 15 minutes/day Octavia/Yazidism: Rossana Special octavia needs: No Seatbelt use: always Drive intox or ride w/intox pile driver operator: No Working smoke detector in home: Yes Fire extinguisher in home: Yes Carbon monox detector in home: Yes Do you feel safe at home: Yes Do you feel safe in your relationship?: Yes
[2025-02-20] MEDS: nitroGLYcerin 0.4 MG TAB SL ×3 (16:38→17:25)
[2025-02-20 16:41] LABS: Abs Immature Grans 0.05 10^3/uL (0.0-0.06); HCT 38.3 % (40.0-50.0); HGB 12.9 g/dL (13.5-17.5); Immature Grans % 0.8 %; MCH 29.2 pg (27.0-33.0); MCHC 33.7 % (32.0-36.0); MCV 87 fL (80-95); MPV 9.4 fL (8.0-11.0); Platelet Count 176 10^3/uL (130-400); RBC 4.42 10^6/uL (4.36-5.78); RDW 13.1 % (11.8-14.1); RDW-SD 40.7 fL; WBC 6.13 10^3/uL (4.4-10.8)
[2025-02-20] MEDS: Aspirin 81 MG CHEW 324 MG CH (16:50)
[2025-02-20] MEDS: Omnipaque 350 MG/ML 100 ML BTL IJ (17:07)
[2025-02-20 17:10] LABS: ALT 40 U/L (16-63); AST 32 U/L (15-37); Albumin 3.5 g/dL (3.4-5.0); Alkaline Phosphatase 68 U/L (46-116); Anion Gap 9.7 mmol/L (3-11); BUN 16 mg/dL (7-18); Bilirubin, Total 0.4 mg/dL (0.2-1.0); CO2 25.3 mmol/L (21.0-32.0); Calcium 8.5 mg/dL (8.5-10.1); Chloride 103 mmol/L (98-107); Estimated GFR 62.89 (mL/min/1.73m2); Glucose 225 mg/dL (74-106); Lipase 17 U/L (<78); Magnesium 1.3 mg/dL (1.8-2.4); NT-proBNP 21 pg/mL (<300); Potassium 4.6 mmol/L (3.5-5.1); Sodium 138 mmol/L (136-145); Total Protein 7.4 g/dL (6.4-8.2); Troponin I 5 ng/L (<or=76)
[2025-02-20] MEDS: Normal Saline - Diluent 50 ML VIAL IJ (17:11)
[2025-02-20] MEDS: MAGNESIUM SULFATE 2 GM/50 ML BAG IV_INF (17:50)
--- NOTE | 2025-02-20 17:50 | DI.VRAD_ITS ---
PROCEDURE INFORMATION: Exam: CTA Chest With Contrast CTA Abdomen and Pelvis With Contrast Exam date and time: 02/20/2025 5:07 PM Age: 59 years old Clinical indication: Abdominal pain; Other: Radiating to back TECHNIQUE: Imaging protocol: Computed tomographic angiography of the chest with contrast. Exam focused on the arteries. Computed tomographic angiography of the abdomen and pelvis with contrast. Exam focused on the arteries. 3D rendering (Not supervised by radiologist): MIP and/or 3D reconstructed images were created by the technologist. Contrast material: OMNI 350; Contrast volume: 100 ml; Contrast route: INTRAVENOUS (IV); COMPARISON: CT CHEST LUNG CANCER SCREEN 06/10/2023 7:56 AM FINDINGS: VASCULATURE: Pulmonary arteries: No pulmonary embolism identified. Aorta: No thoracic or abdominal aortic aneurysm or dissection. Celiac and mesenteric arteries: Celiac artery, superior mesenteric artery, and inferior mesenteric artery widely patent. Renal arteries: Left and right renal arteries widely patent. Right iliac arteries: Right common iliac, internal iliac, and external iliac arteries widely patent. Right femoral/popliteal arteries: Right common femoral and visualized proximal right superficial femoral arteries widely patent. Left iliac arteries: Left common iliac, internal iliac, and external iliac arteries widely patent. Left femoral/popliteal arteries: Left common femoral and visualized proximal left superficial femoral arteries widely patent. Thyroid: Thyroid gland partially excluded from view and partially obscured by artifact but normal in size through its visualized portion. Suggestion of a 1.4 cm dominant indeterminate hypoattenuating left thyroid lesion on image 10 of series 15, partially obscured by artifact and not well evaluated but possibly a colloid cyst or hypoattenuating nodule. CHEST: Lungs: No pulmonary consolidation. Pleural spaces: No pleural effusion or pneumothorax. Mild emphysematous changes in the upper lung zones, more prominent on the right. Heart: Normal-sized heart. Esophagus: Fluid in the mid-distal thoracic esophagus suggesting gastroesophageal reflux. ABDOMEN AND PELVIS: Liver: Diffuse fatty infiltration of the liver. Gallbladder and biliary ducts: Gallbladder partially collapsed. No calcified gallstones seen. No biliary dilatation. Pancreas: Moderate atrophy of the pancreas. Spleen: Splenomegaly, 16 cm craniocaudal dimension. Adrenal glands: Normal appearing adrenal glands. Kidneys and ureters: Atrophic changes in the kidneys. Small indeterminate hypoattenuating renal lesions, not well characterized but statistically most likely renal cysts. No hydronephrosis. No obstructing ureteral stones demonstrated. Stomach and bowel: Stomach moderately distended with ingested material and fluid. No small bowel dilatation to suggest obstruction. Scattered colonic diverticula but no evidence of diverticulitis or colitis. Appendix: Normal appendix. Intraperitoneal space: No gross ascites or free air. Urinary bladder: Urinary bladder partially obscured by artifact but grossly unremarkable, as seen. Reproductive: Prostate gland and seminal vesicles partially obscured by artifact and not well evaluated but grossly normal in size. Lymph nodes: No pathologically enlarged mediastinal or hilar lymph nodes. No pathologically enlarged mesenteric, retroperitoneal, or pelvic sidewall lymph nodes. Bones/joints: No acute fracture seen among the bones of the chest, abdomen, or pelvis. Prior right hip arthroplasty with streak artifact created by the metallic prosthesis partially obscuring the lower pelvis. Mild S-shaped spinal curvature. Spinal degenerative change with discogenic degeneration, Schmorl's nodes, vacuum disc deformities, and anterior osteophytes at multiple levels. Posterior osteophytic ridging at several lower lumbar levels. Significant central canal and neural foraminal narrowing at several lumbar levels. Soft tissues: No gross soft tissue mass or fluid collection seen in the chest wall. Mild diastasis recti. Small fat containing bilateral inguinal region hernias, larger on the left. Apparent prior repair of the left anterolateral abdominal wall. Correlation with surgical history recommended. IMPRESSION: 1. No thoracic or abdominal aortic aneurysm or dissection. 2. Fluid throughout the mid-distal thoracic esophagus suggesting gastroesophageal reflux. 3. Splenomegaly, 16.5 cm craniocaudal dimension. 4. Diffuse fatty infiltration of the liver. 5. No acute bowel pathology demonstrated. Dictated and Authenticated by: Isma Juarez MD. Orderin Alondra Alvarez MD
[2025-02-20 18:06] LABS: Troponin I 5 ng/L (<or=76)
== END 2025-02-20 19:57 | disposition home or self-care (01) ==
PROVIDERS: Emergency Provider Nurse Practitioner Family; PCP Family Medicine
DX: R07.9 Chest pain, unspecified (principal); E83.42 Hypomagnesemia; R16.1 Splenomegaly, not elsewhere classified; K20.90 Esophagitis, unspecified without bleeding
CPT/HCPCS: 99285; 99284; 71275; 80053; 83690; 93005; 96365; 96366; 74174; 83735; 83880; 84484; 85025; 93010; J3475; J3490

== ENCOUNTER → 2025-03-15 02:20 | Outpatient (CLI) | payer MEDICARE, MEDICAID, SELFPAY ==
--- NOTE | 2025-03-15 06:20 | DI.NM_ITS ---
APPROVED REPORT Exam: Pharmacologic Patient Location: Out-Patient Room/Bed: Stress Nurse: Andie Hartley RN Ordering Provider:TANA LOPEZ, Contact Number: [phone] BMI: 28.99 Baseline Rhythm: Sinus Rhythm Indications: Chest pain Medical History Medical History: Amputee, previous smoker, DMT2, HTN, GERD, bipolar, diabetic polyneuropathy, mechanical dysphagia, hypomagnesemia, esophagitis, splenomegaly Cardiac Medications: Finasteride, lisinopril, lurasidone, omeprazole, metformin, trazodone, atorvastatin, gabapentin, insulin aspart, nortriptyline, nitro Allergies: NKA Cardiac Risk Factors: Diabetes, HTN, previous smoker Previous Cardiac Procedures: None Pretest Chest Pain Characteristics: None Exercise History: Sedentary Physical Disabilities: LL amputee Lung Sounds: Clear to auscultation Heart Sounds: Regular Stress Test Details Test: Pharmacologic stress testing performed using 0.4 mg of regadenoson per 5 mL given IV over 10 seconds. Reason for pharmacologic stress test: physical limitation. Nuclear Acquisition: Rest Tc-99m/Stress Tc-99m 1 day Rest Isotope: Tc-99m Sestamibi. Dose: 11.0 Date: 03/15/2025 Injection Time: 0845 Stress Isotope: Tc-99m Sestamibi. Dose: 36.0 Date: 03/15/2025 Injection Time: 1030 HR Resting HR Supine: 81 bpm Max Heart Rate (APMHR): 160 bpm Resting HR Standin bpm Target HR (85% APMHR): 136 bpm Max HR Achieved: 106 bpm % of APMHR: 66 Recovery HR: 87 bpm BP Resting BP Supine: 136/80 mmHg Resting BP Standin/68 mmHg Max BP: 136/80 mmHg Recovery BP: 134/80 mmHg ECG Resting ECG: Sinus Rhythm Stress ECG: Sinus Tachycardia ST Change: Nondiagnostic low heart rate Recovery ECG: Sinus Rhythm Recovery ST Change: Nondiagnostic low heart rate Clinical Stress Symptoms: Mod SOB Angina Score: None Rate Pressure Product: 62008 Stress ECG Conclusion 1. Resting EKG showed left axis deviation, low voltage 2. Patient underwent testing using pharmacologic stress with regadenoson 3. Peak heart rate achieved was 66% of maximal predicted for age 4. The electrocardiographic portion of the test was nondiagnostic 5. See MPI report Stress Test Summary STAGE HR BP SpO2 Symptoms NOTES Supine 81 136/80 95% Standing 94 120/68 1 min post Lexiscan injection 94 134/84 94% 3 min post Lexiscan injection 91 134/78 97% 6 min post Lexiscan injection 87 134/80 96% Patient noted to have a LL amputee. Laying gayle performed. C/O mod SOB s/p gayle injection which completely resolved by test end. Patient proceeded to imaging ambulatory in no apparent distress. MPI Conclusion Myocardial perfusion was normal. There was no ischemia or evidence of prior infarction Left ventricular function was normal with normal wall motion
[2025-03-15] MEDS: Regadenoson 0.4 MG/5 ML SYR IVP (10:37)
== END ==
LOC: DI 02:20
PROVIDERS: PCP Family Medicine; Visit Provider Family Medicine
DX: R07.9 Chest pain, unspecified (principal)
CPT/HCPCS: 78452; 93016; 93018; 93017; J2785